=== PATIENT | female | born 1940 | race Caucasian/White ===

== ENCOUNTER 2018-07-27 17:52 | Inpatient (IN) ==
[2018-07-27 19:03] LABS: URINE SOURCE CLEAN CATCH
[2018-07-27 19:07] LABS: BILIRUBIN URINE NEGATIVE (NEGATIVE); BLOOD URINE TRACE (NEGATIVE); COLOR YELLOW; GLUCOSE URINE 300 mg/dL (NEGATIVE); KETONE URINE NEGATIVE (NEGATIVE); LEUKOCYTES URINE NEGATIVE (NEGATIVE); NITRITE URINE NEGATIVE (NEGATIVE); PH URINE 7.5; PROTEIN URINE 300 mg/dL (NEGATIVE); SP GRAVITY URINE 1.007; TURBIDITY URINE HAZY (CLEAR); UROBILINOGEN URINE NORMAL (NORMAL)
[2018-07-27 19:08] LABS: UR EPITHELIAL CELLS >10 /HPF (<10); URINE BACTERIA 2+ /HPF; URINE RBC <10 /HPF (<10); URINE WBC <10 /HPF (<10)
[2018-07-27 19:08] LABS: BASO# 0.02 X1000 (0.0-0.2); BASO% 0.1 % (0.0-0.8); EOS# 0.15 X1000 (0.0-0.7); HEMOGLOBIN 8.5 g/dL (12.0-16.0); IMM GRAN# 0.05 X1000 (0.0-0.04); IMM GRAN% 0.3 % (0.0-0.5); LYMPH# 2.16 X1000 (1.2-3.4); LYMPH% 13.8 % (20.5-51.1); MCH 32.8 PG (27-31); MCHC 32.7 g/dL (33-37); MCV 100.4 FL (81-99); MONO# 1.03 X1000 (0.11-0.59); MONO% 6.6 % (1.7-9.3); MPV 11.2 FL (7.4-10.4); NEUT# 12.25 X1000 (1.4-6.5); NEUT% 78.2 % (42.2-75.2); PLT 247 X1000 (130-400); RBC 2.59 XMIL (4.2-5.4); RDW 12.8 % (11.5-14.5); WBC 15.66 X1000 (4.8-10.8)
[2018-07-27] MEDS ORDERED: G.I. COCKTAIL PO ONE (19:11)
[2018-07-27] MEDS ORDERED: PROTONIX PO ONE (19:11)
[2018-07-27 19:13] LABS: ALB/GLOB RATIO 1.2; ALBUMIN 3.8 g/dL (3.5-5.0); CALCIUM 9.2 mg/dL (8.8-10.2); POTASSIUM 4.1 mmol/L (3.5-5.1); TOTAL BILIRUBIN 0.27 mg/dL (0.20-1.00)
[2018-07-27 19:21] LABS: CREATININE 5.5 mg/dL (0.5-0.9)
--- NOTE | 2018-07-27 19:29 | Diag Imaging Result Doc PS360 ---
EXAM: CHEST-2 VIEWS 07/27/2018 HISTORY: chest pain TECHNIQUE: PA and lateral chest COMMENT: There are bilateral pleural effusions. There is ill-defined opacity in both lower lobes and some interstitial opacity including Jessica B lines bilaterally. None of these findings were present on 03/22/2018. IMPRESSION: Bilateral pleural effusions and pulmonary edema and/or pneumonia. Electronically signed by Peter Lares 07/27/2018 7:27 PM
--- NOTE | 2018-07-27 19:31 | Diag Imaging Result Doc PS360 ---
EXAM: ABDOMEN FLAT/UPRIGHT 07/27/2018 HISTORY: epigastric pain TECHNIQUE: Flat and upright abdomen COMMENT: There is some gas and stool in the colon including the rectum. There is minimal gaseous dilatation of some small bowel loops in the midabdomen. The stomach is not distended. There is no evidence organomegaly or mass. There has been cholecystectomy. There is a peritoneal dialysis catheter in the pelvis. IMPRESSION: Mild constipation. The possibility of ileus cannot be completely excluded. Otherwise nonspecific abdomen. Electronically signed by Peter Lares 07/27/2018 7:29 PM
[2018-07-27] MEDS ORDERED: ROCEPHIN 1 GM in NS 50 ML IV ONE (19:34)
[2018-07-27] MEDS ORDERED: VANCOMYCIN 1 GM/NS 1 GM/250 ML IVPB IV ONE (20:35)
--- NOTE | 2018-07-27 21:14 | Diag Imaging Result Doc PS360 ---
EXAM: CT ABDOMEN/PELVIS W/O CONTRAST 07/27/2018 HISTORY: abdominal pain, vomiting TECHNIQUE: This exam was performed using automated exposure control, adjustment of mA or kV according to patient size, and/or use of iterative reconstruction technique. COMMENT: There are atelectatic changes in both lung bases with bilateral pleural effusions and alveolar opacity present in both lower lobes consistent with pneumonia. There are no previous studies available for comparison. There is a hiatal hernia. There is a peritoneal dialysis catheter in the pelvis. There is some left renal atrophy and there are are multiple apparent cysts in both kidneys. There is no evidence of hydronephrosis or ureterolithiasis. There is some diverticulosis coli without evidence of active diverticulitis. There is no evidence of appendicitis. There is no evidence of bowel obstruction. The stomach is not distended. There has been cholecystectomy. There is a fair amount of stool in the rectosigmoid colon. IMPRESSION: Bilateral pleural effusions and bibasilar atelectasis and bronchopneumonia. Mild constipation. No evidence of acute intra-abdominal or pelvic disease. Electronically signed by Peter Lares 07/27/2018 9:12 PM
[2018-07-27 21:36] LABS: BODY FLUID SOURCE PERITONEAL FLUID
[2018-07-27 21:37] LABS: WBC BF 286 /cumm
[2018-07-27] MEDS ORDERED: LASIX IV ONE (21:42)
[2018-07-27 22:02] LABS: MONOS 100 %; POLYS 0 %
[2018-07-27 22:31] LABS: INR 0.97; PROTIME 13.7 Seconds (11.0-16.0)
[2018-07-27 22:32] LABS: PTT 31.6 Seconds (22.3-41.8)
[2018-07-27] MEDS ORDERED: MORPHINE IV ONE (23:31)
[2018-07-27] MEDS ORDERED: ZOFRAN IV ONE (23:31)
[2018-07-28] MEDS ORDERED: TYLENOL PO PRN (01:34)
[2018-07-28] MEDS ORDERED: VANCOMYCIN IV PER PHARMACY MISC SCH (01:45)
[2018-07-28] MEDS: MORPHINE IV PRN ×3 (02:06→15:34)
--- NOTE | 2018-07-28 02:06 | PROVIDER DOCUMENTATION ---
This chart was entered by Luci Richards Scribe, acting as scribe for Dwight Villagomez MD. HPI-Abdominal Pain/GI Problem - General Chief Complaint: Abdominal Pain Stated Complaint: HIATAL HERNIA? Time Seen by Provider: 07/27/18 18:13 Source: patient Allergies/Adverse Reactions: Patient Allergies Allergy/AdvReac Type Severity Reaction Status Date / Time No Known Allergies Allergy Verified 12/17/17 08:22 Home Medications: Home Medication List Medication Instructions Recorded Confirmed Last Taken Type Amlodipine Besylate/Benazepril 1 each PO DAILY 12/17/17 07/27/18 07/27/18 History [Lotrel 10-40 mg Capsule] Dorzolamide HCl/Timolol Maleat 1 drop OP BID 12/17/17 07/27/18 07/27/18 History [Cosopt Eye Drops] Furosemide [Lasix] 40 mg PO DAILY 12/17/17 07/27/18 07/27/18 History Insulin Lispro [Humalog] 0 unit SQ DIRECTED 12/17/17 07/27/18 07/27/18 History Pantoprazole Sodium [Protonix] 40 mg PO DAILY 12/17/17 07/27/18 07/27/18 History Subcutaneous Insulin Pump [Insulin 1 each MC DAILY 12/17/17 07/27/18 07/27/18 History Pump] Ergocalciferol (Vitamin D2) 1.2 mg PO DAILY 07/27/18 07/27/18 07/27/18 History [Vitamin D2] Tafluprost/Pf [Zioptan 0.0015% Eye 1 drop BOTH EYES DAILY 07/27/18 07/27/18 Unknown History Drops] - History of Present Illness-ABD Nature of Presenting Problems: 77 yof presents to ED c/o of UQ abdominal pain and chest pain that is burning for 3 months and has increased today, SOB upon lying down, nausea, vomiting, diarrhea. Pt states having only eating jello for last 3 days because eating causes pain. Pt states vinegar, antacid, soda has helped this in past but not helping now. Pt is on pd dialysis and normally does 4hrs 1 x day but had to stop and start dialysis today because pain was so bad. Pt has hx hiatal hernia , DM, HTN. Pt states being scheduled for EGD with Dr. Osborne on 08/04/18. Quality of Pain: reports: burning Review of Systems - Adult - REVIEW OF SYSTEMS - ADULT Constitutional: denies: chills, fever Eyes: reports: no symptoms reported Ears, Nose, Mouth & Throat: reports: no symptoms reported Cardiovascular: reports: chest pain (burning) Respiratory: reports: no symptoms reported Gastrointestinal: reports: see HPI, abdominal pain (possible hiatal hernia), diarrhea, frequent heartburn, nausea, vomiting Genitourinary: reports: no symptoms reported Musculoskeletal: reports: no symptoms reported Integumentary: reports: no symptoms reported Neurological: reports: no symptoms reported Psychiatric: reports: no symptoms reported Past History - Adult - PAST MEDICAL HISTORY-ADULT Review of Records: reports: Old Records Reviewed, Nursing Assessment Review, Medications Reviewed Major Childhood Illnesses: reports: denies history Cardiovascular: reports: denies history Respiratory: reports: denies history Gastrointestinal: reports: denies history Obstetrical/Gynecological: reports: denies history Genitourinary: reports: denies history Musculoskeletal: reports: denies history Neurological: reports: denies history Endocrine/Immune: reports: denies history Other Conditions: reports: denies history - IMMUNIZATION STATUS Childhood Immunizations: See Nurse Assessment Flu Vaccine: See Nurse Assessment - FAMILY HISTORY Family History: reviewed, not pertinent Physical Exam-General - PHYSICAL EXAM-ADULT Initial Vital Signs Reviewed: Yes - CONSTITUTIONAL General Appearance: appears well, alert - EYES Eyes: PERRL/EOMI - HEAD, EARS, NOSE, MOUTH & THROAT HENMT: normocephalic/atraumatic, moist mucous membranes, normal ENT inspection - NECK Neck: non-tender, full range of motion, supple. negative: Brudzinski's sign, carotid bruit - RESPIRATORY Respiratory: chest non-tender, lungs clear, normal breath sounds. negative: crackles, rales, rhonchi - CARDIOVASCULAR Cardiovascular: normal peripheral pulses, regular rate, rhythm, no edema - GASTROINTESTINAL (ABDOMEN) Abdominal Exam: normal bowel sounds, non tender, soft. negative: guarding, rigid, rebound, tenderness - LYMPHATIC Lymphatic: no adenopathy. negative: axilla node tender, cervical node tenderness - MUSCULOSKELETAL Back Exam: normal inspection, no CVA tenderness, no vertebral tenderness. negative: ecchymosis Extremity: normal range of motion, non-tender, normal gait, normal inspection - SKIN Integumentary: normal color, normal turgor, warm/dry. negative: diaphoresis, jaundice - NEUROLOGIC Neurologic: grossly normal Progress - PLAN OF CARE/RESULTS Progress/Plan/Lab Results: Vital Signs - 8 hr 07/27/18 18:06 Temperature 98.4 F Pulse Rate 106 H Respiratory Rate 18 Blood Pressure 156/69 O2 Sat by Pulse Oximetry 97 Orders Category Date Time Status NPO Diet 07/27/18 18:09 Active AMYLASE [CHEM] Stat Lab 07/27/18 18:09 Uncollected CBC WITH ELECTRONIC DIFF [HEME] Stat Lab 07/27/18 18:09 Uncollected COMPREHENSIVE METABOLIC PANEL [CHEM] Stat Lab 07/27/18 18:09 Uncollected LIPASE [CHEM] Stat Lab 07/27/18 18:09 Uncollected URINALYSIS W/POSS RFLX CULT [URINALYSIS] Stat Lab 07/27/18 18:09 Uncollected EKG [EKG] Stat Ther 07/27/18 18:09 Ordered Result Diagrams: 07/27/18 18:14 07/27/18 18:14 - EKG 2 Time of EKG reading by physician:: 18:11 EKG Read and Signed by:: Dwight Overton EKG Interpretation (*Must complete 3 of following elements*): Abnormal Rate: 107 Rhythm: sinus tachy ST Wave: non-specific ST changes - XRAY 1 XRAY: Bilateral XRAY Study: Chest Impression: Abnormal (IMPRESSION: Bilateral pleural effusions and pulmonary edema and/or pneumonia. Electronically signed by Peter Lares 07/27/2018 7: 27 PM) 2 XRAY: Bilateral XRAY Study: Abdomen Impression: Abnormal (IMPRESSION: Mild constipation. The possibility of ileus cannot be completely excluded. Otherwise nonspecific abdomen. Electronically signed by Peter Lares 07/27/2018 7:29 PM) - CONSULTS/PCP/HOSPITALIST Notification #1 *Consult/PCP/Hospitalist*: Dr. Willie perez Consult Disposition: Admit (HX, PE, DX disucssed with Dr. Perez. accepted.) #2 Consult: Dr. Dayana Campuzano Disposition: Admit (Peritoneal sample, Add vancomycin and admit.) Departure - Departure Date of Disposition Decision: 07/27/18 Time of Disposition Decision: 22:01 DIAGNOSIS: Pleural effusion, Chest pain, Abdominal pain Pneumonia Qualifiers: Pneumonia type: due to unspecified organism Laterality: unspecified laterality Lung location: unspecified part of lung Qualified Code(s): J18.9 - Pneumonia, unspecified organism Disposition: ADMITTED INPATIENT 09 Certified Medical Emergency: Emergent Condition: Stable - Critical Care Note This patient required my direct & personal management of CC.: No Attestation - Physician/ BHAVANA Attestation Patient care was provided by Advanced Practice Provider:: No The physician spent face to face time with patient:: Yes Advanced Practice Provider documentation review:: Supervising physician onsite and consulted in the evaluation and care of this patient. The physician did have a face to face encounter with the patient. This chart was documented by the indicated scribe, (Luci Richards Scribe) and accurately reflects the services I performed and decisions made by me, Dwight Villagomez MD, as attested by the provider's signature.
--- NOTE | 2018-07-28 06:00 | HISTORY AND PHYSICAL ---
PRIMARY CARE PROVIDER: Dr. Dario Baez. CORRECTIONAL NURSE: Dr. Chiu. LUCERNE FARMER: Dr. Anne. CHIEF COMPLAINT: Abdominal pain. HISTORY OF PRESENT ILLNESS: Ms. Hinojosa is a 77-year-old female who states that for a few months now that she has had abdominal pain that has progressively been getting worse. Upon further questioning it does appear the patient is having epigastric pain that is in the center and left upper abdomen just under her left as well. She states that the pain did use to be intermittent and would worsen when she would eat though over the past few weeks it has become constant. In the last few days the patient reports that the pain has become almost intolerable, a 10 out of 10, it is constant. She states that secondary to the pain that she is not able to eat or to drink much. She also states she has been having trouble sleeping. She has had occasional episodes of vomiting with this though states she has not had any in the last few days though she has not eaten hardly any food or drank anything. She denies any emesis. She reports her last bowel movement was two days ago. She states that she does constipate easy and normally takes a stool softener. She denies any hematochezia or melena. Patient states the pain does radiate into her back at times. She has reported that last month she did get treated for an upper respiratory infection and has kept an occasional productive cough. She states this was white sputum though she denies any fever, body aches or chills. The patient does have a history of having end stage renal disease and is on daily peritoneal dialysis. She also reports that she has been seeing Dr. Chiu for her epigastric pain and does have a reported hiatal hernia. She does have an appointment for an EGD with Dr. Chiu on August 04. Upon evaluation in the ER, the patient's initial vital signs were temperature 98.4, heart rate 109, respirations 18, blood pressure is 139/54, oxygen saturation is 93% on room air. She did have some leukocytosis noted with a white blood count of 15,660. Chest x-ray did show bilateral pleural effusions and pulmonary edema and/or pneumonia. Abdomen x-ray did show some mild constipation and the possibility of an ileus could not be excluded. Given those findings a CT abdomen and pelvis without contrast was performed which did show bilateral pleural effusions and bibasilar atelectasis and bronchopneumonia. There was mild constipated noted though no evidence of acute intraabdominal or pelvic disease. Dr. Overton, the ER physician, did contact Dr. Anne and notify him of the patient. He did have the dialysis nurse come in, obtain some peritoneal fluid. She did have 286 WBCs noted to her peritoneal fluid. According to Dr. Marcella Pastrana, he has requested antibiotics of Rocephin and vancomycin. Blood cultures and a sputum culture have been obtained as well. Patient will be placed in patient admission for further treatment and evaluation. REVIEW OF SYSTEMS: A 14 point review of systems was conducted with the patient and all were negative except for pertinent positives mentioned above in HPI. PAST MEDICAL HISTORY: 1. Hypertension. 2. Hyperlipidemia. 3. End stage renal disease, on peritoneal dialysis. 4. Gastroesophageal reflux disease. 5. Hiatal hernia. 6. Diabetes mellitus, type 2. 7. Anemia. 8. Glaucoma. PAST SURGICAL HISTORY: 1. Cholecystectomy. 2. Peritoneal dialysis port placement. SOCIAL HISTORY: The patient has no known history of tobacco, alcohol or illicit drug use. She is . Her was present at bedside. The patient is retired. 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 She did not require any ambulatory assistive devices. FAMILY HISTORY: Her mother had a history of passing away secondary to metastatic cervical cancer. Her father had a history of kidney disease as well. She has a brother who has a history of heart problems. ALLERGIES: The patient reports that she has allergies to flu shot and some injectable insulins though she has not had any adverse reactions to Humalog and this is what she takes at this time. She also reports that she does have to take premedications of Benadryl when receiving iron infusions. HOME MEDICATIONS: 1. Lotrel 10 - 40 mg capsule, one p.o. daily. 2. Cosopt eyedrops, one drop in both eyes b.i.d. 3. Vitamin D2 1.2 mg p.o. daily. 4. Lasix 40 mg p.o. daily. 5. Lispro insulin per sliding scale as directed subcutaneously. 6. Protonix 40 mg p.o. daily. 7. Zioptan 0.0015% eyedrops, one drop in both eyes nightly. 8. Allergen eyedrops, one drop in the right eye b.i.d. DIAGNOSTIC DATA/LABORATORY RESULTS: White blood cell count is 15.66, hemoglobin 8.5, hematocrit 26, platelet count 247,000, PT 13.7, INR 0.97, PTT is 31.6, sodium 138, potassium 4.1, chloride 101, serum bicarb is 19, BUN 41, creatinine 5.5 with a GFR of 8, glucose 188, calcium 9.2. Liver function test within normal limits. CK 51, troponin 0.01, amylase 19, lipase 45, plasma lactate is 1.2. Urinalysis was obtained via catheter and was positive for protein glucose, trace blood. It was negative for ketones, nitrites, leukocytes, white blood cells but did have 2+ bacteria and also has greater than 10 epithelial cells. Peritoneal fluid did have 286 WBCs noted. There were 0 polynuclear WBCs. There were 100 mononuclear WBCs present. Pending cultures at this time are a blood culture, a sputum culture and peritoneal fluid culture as well. Abdomen x-ray did show mild constipation and the possibility of an ileus cannot be completely excluded. Chest x-ray showed bilateral pleural effusions and pulmonary edema and/or pneumonia. CT abdomen and pelvis without contrast showed bilateral pleural effusions, bibasilar atelectasis and bronchopneumonia. There is mild constipation. There was no evidence of acute intraabdominal or pelvic disease. PHYSICAL EXAMINATION: VITAL SIGNS: Temperature 98.4, heart rate 109, respirations 18, blood pressure 139/54. Oxygen saturation is 96% on nasal cannula at 2 L. GENERAL: Ms. Hinojosa is a 77-year-old pleasant female. She was resting in the ER stretcher. She was in no acute distress. She was awake, alert, and able to answers questions appropriately. On my initial assessment the patient did appear to be having some epigastric pain and was quite uncomfortable, reporting 10 out of 10 pain. HEENT: Head is normocephalic and atraumatic. Pupils are equal, round and reactive to light, were 3 mm bilaterally and brisk. Sub conjunctivae were slightly pale. Oral mucosa slightly dry. Oropharynx is clear. NECK: Supple. Trachea midline. CARDIOVASCULAR: Patient has S1, S2 present. No murmurs, gallops or rubs appreciated with a regular rate and rhythm. PULMONARY: Patient has symmetrical chest expansion bilaterally. Lung sounds in bilateral upper gardner were clear to auscultation though she did have fine crackles noted in bilateral bases. ABDOMEN: Soft. Does not appear to be distended though she did report tenderness upon palpation in the epigastric and left upper quadrant areas just under her left breast though no rebound tenderness noted. Bowel sounds were present in all four quadrants, were normoactive. The patient's peritoneal dialysis port site was within normal limits. There was no erythema, warmth, drainage or tenderness noted. EXTREMITIES: No cyanosis or clubbing noted. The patient did have trace edema noted to bilateral lower extremities approximately mid calf down. Pulse, motor and sensory were intact in all extremities. Radial pulse and pedal pulses were 2+ bilaterally. INTEGUMENTARY: Patient's skin is pink, warm and dry. NEUROLOGIC: The patient is alert and oriented to x4. There are no focal neurological deficits noted. ASSESSMENT AND PLAN: 1. Epigastric pain. Patient does have a history of a hiatal hernia that has been being followed by Dr. Chiu. She did have an EGD scheduled for August 04. Patient states this pain has been progressively getting worse over the past few months as described above in the HPI. At this time I do feel that the patient's pain that she is reporting may be secondary to her hiatal hernia. Given this we have placed a consult with Dr. Chiu and will await his evaluation and further recommendations for management. Until she is evaluated by GI we have asked that the patient remain NPO at this time except for ice chips. We have placed p.r.n. orders for morphine and Zofran for nausea. Will provide PPI of Protonix 40 mg IV q.24.h. Will continue to follow closely. 2. Rule out possible peritonitis. The patient has been reporting abdominal pain. She does have some leukocytosis noted and did have 286 WBCs noted in her peritoneal fluid. The patient has had a culture performed for peritoneal fluid as well as blood cultures have been obtained. We will continue with antibiotic coverage with Rocephin and vancomycin. Will continue to follow. 3. Bilateral pneumonia. The patient did have atelectatic changes in both lung bases and bilateral pleural effusions and alveolar opacity present in both lower lobes consistent with pneumonia. We will continue with treat with antibiotic treatment as mentioned above with vancomycin and Rocephin. Blood cultures and sputum culture have been obtained. Will continue with encouragement of frequent turn, cough and deep breathing as well as incentive spirometry. Will continue to follow. 4. End stage renal disease, on peritoneal dialysis. For this we have placed a consult with Dr. Anne for assistance with her peritoneal dialysis. We will await his evaluation and further recommendations for management. 5. Diabetes mellitus, type 2. We placed a sliding scale Lispro insulin though this will be a patient specific sliding scale not to be treated once her fingerstick blood sugar gets greater than 200 given that the patient has had decreased appetite, oral intake and is NPO with ice chips at this time. Will do pattern fingerstick blood sugars. 6. Hypertension. Continue the patient's readily prescribed antihypertensive medication. 7. Anemia. The patient's hemoglobin and hematocrit is just slightly decreased from her baseline at this time. We will continue to monitor this and transfuse if necessary. 8. Deep venous thrombosis prophylaxis. To be provided with sequential compression devices. The patient has been placed on the Medical floor with telemetry. She will have vital signs q.4.h. Will do strict intake and output. We have implemented aspiration precautions. Will repeat a CBC, renal profile and magnesium in the morning. Further orders and recommendations pending hospital course, diagnostic studies and physician evaluation. Dictated by KEO Gillis for Willie Perez MD cc: Willie Perez MD
[2018-07-28] MEDS: HUMALOG SUBQ SCH ×4 (06:13→21:41)
[2018-07-28 07:39] LABS: BASO# 0.01 X1000 (0.0-0.2); BASO% 0.1 % (0.0-0.8); HEMATOCRIT 24.8 % (37.0-47.0); HEMOGLOBIN 7.8 g/dL (12.0-16.0); IMM GRAN# 0.03 X1000 (0.0-0.04); IMM GRAN% 0.2 % (0.0-0.5); LYMPH# 0.93 X1000 (1.2-3.4); LYMPH% 5.2 % (20.5-51.1); MCH 32.9 PG (27-31); MCHC 31.5 g/dL (33-37); MCV 104.6 FL (81-99); MONO# 1.19 X1000 (0.11-0.59); MONO% 6.6 % (1.7-9.3); MPV 11.3 FL (7.4-10.4); NEUT# 15.82 X1000 (1.4-6.5); NEUT% 87.9 % (42.2-75.2); PLT 247 X1000 (130-400); RBC 2.37 XMIL (4.2-5.4); RDW 13.3 % (11.5-14.5); WBC 17.98 X1000 (4.8-10.8)
--- NOTE | 2018-07-28 07:59 | EKG Report ---
Test Performed on : 07/28/2018 07:05:02 AM Test Reason : CP/Epigastric Pain Blood Pressure : / mmHG Vent. Rate : 112 BPM Atrial Rate : 112 BPM P-R Int : 116 ms QRS Dur : 108 ms QT Int : 358 ms P-R-T Axes : 034 -29 161 degrees QTc Int : 488 ms Sinus tachycardia. Septal infarct (cited on or before 17-DEC-2017) ST & T wave abnormality, consider lateral ischemia Abnormal ECG When compared with ECG of 27-JUL-2018 18:11, (Unconfirmed) Nonspecific T wave abnormality now evident in Inferior leads Confirmed by Ham Davidson MD ([id number]) on 07/29/2018 7:08:27 AM
--- NOTE | 2018-07-28 08:21 | EKG Report ---
Test Performed on : 07/27/2018 6:11:20 PM Test Reason : chest pressure Blood Pressure : / mmHG Vent. Rate : 107 BPM Atrial Rate : 107 BPM P-R Int : 126 ms QRS Dur : 112 ms QT Int : 362 ms P-R-T Axes : 047 -34 110 degrees QTc Int : 483 ms Sinus tachycardia. Left axis deviation Septal infarct (cited on or before 17-DEC-2017) ST & T wave abnormality, consider lateral ischemia Abnormal ECG When compared with ECG of 17-DEC-2017 08:41, ST now depressed in Lateral leads Nonspecific T wave abnormality no longer evident in Anterior leads T wave inversion more evident in Lateral leads Unconfirmed Result
[2018-07-28 08:22] LABS: ALBUMIN 3.5 g/dL (3.5-5.0); CALCIUM 9.7 mg/dL (8.8-10.2); MAGNESIUM 2.1 mg/dL (1.5-2.7); PHOSPHORUS 6.8 mg/dL (2.7-4.5); POTASSIUM 4.7 mmol/L (3.5-5.1)
[2018-07-28 08:52] LABS: CREATININE 6.2 mg/dL (0.5-0.9)
[2018-07-28 09:30] LABS: HEMOGLOBIN A1C 5.3 % (4.8-6.0)
[2018-07-28 09:58] LABS: BANDS 12 % (0-1); LYMPHS 2 % (21-51); SEGS 86 % (42-75)
[2018-07-28] MEDS: COSOPT OPHTH SOLN BOTH EYES SCH ×2 (10:26→21:41)
--- NOTE | 2018-07-28 10:37 | PROGRESS NOTE ---
DATE: 07/28/2018 SUBJECTIVE: Patient reports still some discomfort in the epigastric area. Denies any fever, chills, nausea, vomiting. OBJECTIVE: Vital Signs: Temperature 98.4 degrees, heart rate 110, respiratory rate 18, blood pressure 118/54, O2 saturation 93% on 3 L nasal cannula General examination: This is a chronically ill-looking, 77-year-old female, lying in bed in no acute distress. HEENT: Head is normocephalic, atraumatic. Mucous membranes dry. Neck: Supple. No JVD noted. No carotid bruits. No lymphadenopathy. No thyromegaly. Cardiovascular exam: S1 , S2 heard. No murmurs, gallops, or rubs. Regular rate and rhythm. Respiratory exam: Clear bilaterally to auscultation. No work of breathing or using accessory muscles. Abdomen: Soft. A little bit distended. Tender to palpation in the epigastric area, but there are no signs of peritoneal irritation. The patient's peritoneal dialysis port site was within normal limits. No erythema noted. Extremities: No clubbing or cyanosis noted. The patient may have trace edema noted on both lower extremities. Neurological exam: Patient alert and oriented x3. Moves 4 extremities. LABORATORY DATA: White cell count 17.98, hemoglobin 7.8, hematocrit 24.8, platelets 247 with BMP remarkable for creatinine 6.2 with glucose of 41. ASSESSMENT/PLAN: 1. Bronchopneumonia; that is what the CAT scan shows. The patient is on vancomycin per pharmacy and also receiving ceftriaxone. We will continue with both medications. 2. Epigastric pain. The patient is going to be seen by Dr. Osborne today for further evaluation and management. The patient is on nothing by mouth at this point. We will continue with Protonix 40 mg intravenous every 24 hours. 3. Suspicion for possible peritonitis. I think at this point patient is fine. I am not concerned about that. 4. End-stage renal disease on peritoneal dialysis. Dr. Anne has been consulted. We will continue with peritoneal dialysis here. 5. Diabetes mellitus type 2. We will continue with sliding scale insulin and Accu-Cheks before meals and also at bedtime. 6. Hypertension. We will continue with the same management. 7. Anemia of chronic disease. Hemoglobin is 2.8 today. We will continue to monitor. 8. Disposition: We will continue to monitor this patient closely. We appreciate help from Nephrology. Addendum: I was paged by nurse because this patient started complaining of severe substernal chest pain. Her troponins started to get higher. EKG revealed possible inferior MA. I immediately went to see her. I ordered one dosis of sublingual nitro and morphine IV. Pain now is 4 out of 10 intensity. I ordered an echocardiogram and consulted cardiology. I talked with Dr. Jacinto which think she may need cath eventually but he prefers to transfer her to [place]. I am ok with the plan. Will stabilize her first. Upon my examination again she has crackles all over both pulmonary bases and she is anemic. All those factors are contributing to her chest pain. Will talk with Nephro to see if she can have hemodialysis if required. My understanding is she does not make urine so Lasix will not be useful. Will send her to ICU and monitor her closely. Critical care time : 50 minutes cc: Eric Nunes MD MTDD
[2018-07-28] MEDS ORDERED: MORPHINE IV ONE (12:02)
[2018-07-28] MEDS: ZOFRAN IV PRN (12:09)
[2018-07-28] MEDS: NITROGLYCERIN SL PRN ×3 (12:13→12:24)
[2018-07-28] MEDS ORDERED: MORPHINE ONE (12:18)
[2018-07-28] MEDS: LOTREL 5/20 MG PO SCH (12:35)
--- NOTE | 2018-07-28 12:41 | EKG Report ---
Test Performed on : 07/28/2018 12:33:59 PM Test Reason : chest pain Blood Pressure : / mmHG Vent. Rate : 100 BPM Atrial Rate : 100 BPM P-R Int : 118 ms QRS Dur : 110 ms QT Int : 380 ms P-R-T Axes : 030 -24 012 degrees QTc Int : 490 ms Normal sinus rhythm. Incomplete left bundle branch block T wave abnormality, consider lateral ischemia Abnormal ECG When compared with ECG of 28-JUL-2018 07:05, (Unconfirmed) T wave inversion less evident in Lateral leads Confirmed by Stuart SALAS, Ham Finch ([id number]) on 07/29/2018 7:10:39 AM
[2018-07-28 12:45] LABS: ALLEN TEST NO; BLOOD TYPE ARTERIAL; HCO3-(ACT) 20.2 mmoll (20.0-26.0); O2(CT) 14.4 mL/dL (15.0-23.0); O2HB 95.2 % (95.0-99.0); PCO2(98.6) 38 mmHg (35-45); PO2(98.6) 86 mmHg (60-100); SAMPLE BLOOD; SAO2 97.4 % (95.0-100.0); THB 10.7 g/dL (11.5-17.4); pH(98.6) 7.32 (7.35-7.45)
[2018-07-28 12:46] LABS: MODALITY NRB
--- NOTE | 2018-07-28 14:17 | EKG Report ---
Test Performed on : 07/28/2018 2:00:23 PM Test Reason : elevated troponins Blood Pressure : / mmHG Vent. Rate : 097 BPM Atrial Rate : 097 BPM P-R Int : 120 ms QRS Dur : 110 ms QT Int : 364 ms P-R-T Axes : 033 -28 -78 degrees QTc Int : 462 ms Normal sinus rhythm. Incomplete left bundle branch block ST & T wave abnormality, consider lateral ischemia Abnormal ECG When compared with ECG of 28-JUL-2018 12:33, (Unconfirmed) No significant change was found Confirmed by Ham Davidson MD ([id number]) on 07/29/2018 7:10:56 AM
[2018-07-28] MEDS: CARAFATE LIQUID PO SCH ×2 (14:22→20:26)
--- NOTE | 2018-07-28 14:36 | CONSULTATION ---
DATE OF CONSULTATION: 07/28/2018 REASON FOR CONSULTATION: Chest pain, epigastric abdominal pain. HISTORY OF PRESENT ILLNESS: This is a 77-year-old female who reports ongoing symptoms for several months but over the last 2 to 3 weeks her symptoms have become severe. She has reported chest pain, esophageal pain described as a tightness, sometimes pain that radiates to the back. She denies dysphagia. Patient reports pain is worse after eating and also worse when taking a deep breath. She complains of pain worse on the left side than the right side, but also points to the mid sternal area. She reports an episode of nausea and vomiting yesterday. She does report occasional constipation and takes stool softeners as needed. She usually has a bowel movement daily. She has not been seen in our office recently. We had last seen her for an outpatient colonoscopy in 2016 that showed diverticulosis. On evaluation the patient had a chest x-ray that showed bilateral pleural effusion, pulmonary edema versus pneumonia. On reviewing her records including lab work and EKG. Patient has had elevation in her troponin since yesterday. EKG showed normal sinus rhythm with incomplete left bundle branch block with T-wave abnormality considering lateral ischemia. Patient has denied abdominal pain. She has denied dysphagia. No reported blood in the stool or black stools. No reported hematemesis. She states the pain is severe at times. She has been taking Protonix at home. She was actually scheduled for an outpatient EGD by Dr. Osborne next week, on July. We have not seen her in the office recently, except for colonoscopy in 2016. PAST MEDICAL HISTORY: Hypertension, hyperlipidemia, end-stage renal disease on peritoneal dialysis, following with Dr. Anne, GERD, hiatal hernia, diabetes type 2, anemia, glaucoma. PAST SURGICAL HISTORY: Peritoneal dialysis placement in December of 2017 and initiation of peritoneal dialysis in January of 2018. ALLERGIES: No known drug allergies. MEDICATIONS: Lotrel 10/40 mg daily, Alphagan eye drops twice a day, Cosopt eye drops twice a day, vitamin D2 1.2 mg daily, Lasix 40 mg daily, insulin Levemir 15 units subcutaneously daily, insulin Humalog subcutaneously as directed, Protonix 40 mg daily, insulin pump daily, other eye drops daily, and eye drops at night. SOCIAL HISTORY: She is . No reported alcohol or tobacco use. She is retired. FAMILY HISTORY: Mother with metastatic cervical cancer. Father had kidney disease and a brother with history of heart disease. REVIEW OF SYSTEMS: Per history of present illness. PHYSICAL EXAMINATION: Vital Signs: Temperature 98.6 degrees, pulse 99, respirations 16, blood pressure 110/62. General: Patient is awake, alert, in no acute distress. She still reports some pain but states it has improved after pain medication. HEENT: Normocephalic, atraumatic. Pupils equal, round, reactive to light. Sclerae nonicteric. Cardiovascular: Regular rate and rhythm. Respiratory: Lung sounds essentially clear. Abdomen: Soft. Positive bowel sounds. Some mild tenderness in the epigastric area. Has peritoneal dialysis port to the abdomen. Extremities: No lower extremity edema noted. Cranial nerves 2-12 grossly intact. Patient is awake, alert, oriented to person, place, and time. LABORATORY: Hematology: WBC 17.98, hemoglobin 7.8, hematocrit 24.8, MCV 104.6, platelets 247,000. Coagulation: ProTime 13.7, INR 0.97, PTT 31.6. Chemistry: Sodium 136, potassium 4.7, chloride 100, CO2 18, BUN 46, creatinine 6.2, glucose 241, phosphorus 6.8, total bilirubin 0.27, AST 12, ALT 13, alkaline phosphatase 69. On admission her troponin was 0.071. Today it is 0.490. CPK on admission 51, today 57. Amylase 19, lipase 45. IMAGING STUDIES: Abdominal and pelvis CT scan showed bilateral pleural effusions and bibasilar atelectasis and bronchial pneumonia with mild constipation. No evidence of acute intra-abdominal or pelvic disease. Abdominal x-ray shows mild constipation with the possibility of ileus could not be excluded. Otherwise nonspecific abdomen. Chest x-ray showed bilateral pleural effusions and pulmonary edema and/or pneumonia. ASSESSMENT AND PLAN: 1. Bronchial pneumonia. Continue current management. Continue antibiotics. 2. Chest pain versus epigastric pain. Patient is on PPI. Will add Carafate. 3. End-stage renal disease, on peritoneal dialysis. Following with Dr. Anne. 4. Elevated troponin, abnormal electrocardiogram. I believe cardiology has been consulted. This could be the cause of her pain she is experiencing. We had tentatively scheduled her for an EGD today but due to her other issues including respiratory and possible cardiac issues, the EGD has been canceled. Further plans will be made according to her progress and findings. I have discussed this case with Dr. Osborne. Dictated by KEO Navarrete for Dameon Osborne MD cc: KEO Kaufman MD
[2018-07-28] MEDS ORDERED: ASPIRIN PO ONE (15:49)
--- NOTE | 2018-07-28 16:24 | CONSULTATION ---
DATE OF CONSULTATION: 07/28/2018 IMPRESSION: 1. Acute coronary syndrome/unstable angina likely provoked by stress of noncardiac illness, including significant anemia, possible infectious process, and likely pulmonary edema. In essence, current clinical presentation has seemed to unmask the likely diagnosis of severe coronary disease in this patient at high risk for coronary atherosclerosis. The patient's chest symptoms have abated at this point. 2. Anemia which appears to be significant. Hematocrit currently 24.8 and previously 35 six months ago. No overt symptoms of gastrointestinal blood loss. 3. Hypoxemia probably due to pulmonary edema suggested on chest x-ray. Leukocytosis evident and cannot exclude possible associated pneumonia. 4. End-stage renal disease requiring chronic peritoneal dialysis. 5. Diabetes mellitus type 2. 6. Hypertension. RECOMMENDATIONS: 1. Continue supplemental oxygen and try to remove intravascular volume as best as possible. Nephrology assistance will be needed. 2. Consider transfusion of packed red blood cells. 3. Treat for possible pneumonia as you are doing. 4. Non contrasted chest CT scan may prove helpful in trying to better define pulmonary process. 5. Follow up echocardiography. 6. Once patient stabilizes overall, further evaluation with cardiac catheterization/coronary angiography should be considered. It may be better to consider pursuing this in [facility]. HISTORY: This 77-year-old white female with past history of end-stage renal disease requiring chronic peritoneal dialysis, type 2 diabetes mellitus and hypertension was recently admitted with episodic chest pressure over the last several weeks that has been getting progressively worse. She has noted that the discomfort seems to be postprandial. She is not very active physically. She is rather vague as to the duration of her chest symptoms, but adds that it would almost be constant at times. As symptoms were getting progressively worse, she came to the hospital for evaluation and was admitted. She has had hypoxemia and bilateral pulmonary infiltrates. She also has leukocytosis and significant anemia. Today, she had further chest discomfort characterized as pressure, although she would state the discomfort seems to be sharp at times. She was treated with increase in supplemental oxygen and some nitroglycerin, as well as parental morphine. Her symptoms have abated. Initial troponin when she came to the hospital was 0.071 and subsequent troponin has risen to 0.490. For this reason, Cardiology was consulted. PAST MEDICAL HISTORY: 1. End-stage renal disease requiring chronic peritoneal dialysis. 2. Type 2 diabetes mellitus. 3. Hypertension. 4. Hyperlipidemia. 5. Gastroesophageal reflux disease. 6. Anemia, mild in the past. 7. Glaucoma. PAST SURGICAL HISTORY: 1. Cholecystectomy. 2. Placement of peritoneal dialysis catheter. ALLERGIES: She has no known drug allergies. MEDICATIONS PRIOR TO ADMISSION: As listed. SOCIAL HISTORY: She does not smoke nor use alcohol. She is . FAMILY HISTORY: Negative for premature coronary disease. REVIEW OF SYSTEMS: Pulmonary: Noteworthy for dyspnea, as well as nonproductive cough. Gastrointestinal: Noteworthy for postprandial chest pressure and gastroesophageal reflux. Constitutional: Negative for fever. Remainder of review of systems negative/noncontributory with 14 total systems reviewed. PHYSICAL EXAMINATION: General: This is a pleasant, older white female in no distress. Vital signs: Blood pressure 110/62, heart rate 99, oxygen saturation 92%. HEENT Exam: Extraocular movements appear intact. Mucous membranes are moist. Neck: Supple without jugular venous distention. There are no carotid bruits. Chest: Auscultation of the chest reveals bibasilar inspiratory crackles. Cardiac Exam: Reveals a regular rate and rhythm without appreciable murmur or gallop. Abdomen: Soft. Bowel sounds normal. Extremities: Without edema. Neurologic: Reveals her to be alert and fully oriented. Speech is fluent. She moves all 4 extremities equally well. Skin: Warm and dry. Psychiatric: Reveals her mood to be appropriate. PERTINENT DATA: Twelve lead EKG demonstrates sinus rhythm, incomplete left bundle branch block, and ST and T-wave abnormality, consider lateral ischemia. LABORATORY DATA: Lab data includes white blood cell count of 17.98, hematocrit 24.8, hemoglobin 7.8, MCV 104.6, platelet count 247. Sodium 136. Potassium 4.7. Chloride 100. Carbon dioxide 18. BUN 46, creatinine 6.2, glucose 241. Initial troponin 0.071. Troponin today 0.490. Initial CPK 51; followup CPK today 57. cc: Floyd Jacinto MD
--- NOTE | 2018-07-28 18:35 | Diag Imaging Result Doc PS360 ---
CT THORAX W/O CONTRAST - 07/28/2018 INDICATION: hypoxemia, nonproductive cough COMPARISON: Chest x-ray 07/27/2018 FINDINGS: There are small bilateral pleural effusions. There is significant consolidation of both lower lobes. There is hazy interstitial infiltrate centrally throughout the lungs bilaterally. Heart size is ordered aligned. No pericardial effusion. Anemia is present. No adenopathy. There are cholecystectomy clips. Upper abdominal images are grossly normal. There are moderate degenerative changes of the spine. No acute or suspicious bony lesion. IMPRESSION: 1. Cardiomegaly, pulmonary edema, small pleural effusions. 2. Significant consolidation of both lower lobes is indeterminate, representing either pneumonia or atelectasis. This exam was performed using automated exposure control, adjustment of mA or kV according to patient size, and/or use of iterative reconstruction technique Electronically signed by Eddie Mcfarland 07/28/2018 6:32 PM
[2018-07-28] MEDS ORDERED: PROTONIX IV SCH (19:00)
[2018-07-28] MEDS ORDERED: ROCEPHIN 1 GM in NS 50 ML IV SCH (20:00)
[2018-07-28] MEDS ORDERED: LASIX IV ONE (20:06)
--- NOTE | 2018-07-28 21:35 | NEPHROLOGY CONSULTATION ---
DATE: 07/28/2018 REASON FOR CONSULTATION: Assistance with management. I was contacted directly by the ER physician on the evening of the . HISTORY OF PRESENT ILLNESS: Ms. Wheeler is a 77-year-old white female, who relates a month or more above substernal chest pain which she describes as "hernia" and reflux. She states that the symptoms have been present on and off most days and has some relief with pickle juice. No shortness of breath. Nausea does attend her symptoms. No radiation. No abdominal pain and her peritoneal dialysis fluid has been clear throughout. Ultimately, her symptoms became severe enough that she came to the emergency room last night. She also complained of severe weakness that prompted her to come on to the emergency room. Her initial evaluation performed at 1806 found blood pressure 156/69, heart rate 106. I spoke with her by telephone and reviewed her symptoms and asked her to collect a fluid sample. She received an empiric dose of vancomycin and Fortaz pending her fluid results. Her abdominal series suggested a possible ileus, and so I ordered a CT of the abdomen, but this was nonspecific. This morning at the time my exam, she stated that her symptoms were improved, but still present, and described her chest as sore. Not short of breath at the time. No chills or fevers. Again, denies abdominal pain. PAST MEDICAL HISTORY: 1. Chronic kidney disease, 5D, secondary to diabetes. 2. Hypertension. 3. Hyperlipidemia. 4. History of reflux disease. HOME MEDICATIONS: Include Lotrel, vitamin D, furosemide, insulin, Protonix, Zioptan. ALLERGIES: None. SOCIAL HISTORY: She is and lives with her . No alcohol or tobacco. FAMILY HISTORY: Otherwise noncontributory. REVIEW OF SYSTEMS: Otherwise noncontributory. PHYSICAL EXAMINATION: Vital Signs: At 0351, blood pressure 123/56, heart rate 107, respirations 17, afebrile. General: She is in no acute distress. Skin: Warm and dry. Conjunctivae are pink. Pupils are equal. Oropharynx is clear. Tongue is moist. Dentition normal. Neck: Supple. Trachea is midline. Neck veins are not distended. Heart: Regular without gallops or murmurs. Lungs: Equal. No crackles or wheezes. Abdomen: Soft, nontender. Bowel sounds are present. Chest: Modestly tender and over the sternum. Extremities: Have no clubbing, cyanosis, or edema. IMPRESSION: 1. Chronic kidney disease, 5D. We will use the cycler tonight and perform 5 x 2 L exchanges over 10 hours. Overall she is well dialyzed on a light dialysis prescription. Her BUN was 41 on arrival. 2. Possible peritonitis. Though she did have greater than 200 white cells, she had no polymorphonuclears white cells. I will discontinue her antibiotics. 3. Acute coronary syndrome. Since admission, her troponin has risen progressively from 0.07 to 0.490. She has been evaluated by Cardiology, and they are working on a disposition. She has also been evaluated by Gastroenterology. Her medications have been reviewed and no changes are required otherwise. cc: Jostin Anne MD MTDD
[2018-07-28] MEDS: LOPRESSOR PO SCH (21:41)
[2018-07-28] MEDS: PATIENT'S OWN MED BOTH EYES SCH (21:42)
[2018-07-29] MEDS ORDERED: NITROGLYCERIN TOP ONE (01:40)
[2018-07-29] MEDS: CARAFATE LIQUID PO SCH ×4 (02:09→19:54)
[2018-07-29 04:07] LABS: URINE SOURCE CATH
[2018-07-29 04:17] LABS: BILIRUBIN URINE NEGATIVE (NEGATIVE); BLOOD URINE NEGATIVE (NEGATIVE); COLOR YELLOW; GLUCOSE URINE 300 mg/dL (NEGATIVE); KETONE URINE TRACE mg/dL (NEGATIVE); LEUKOCYTES URINE NEGATIVE (NEGATIVE); NITRITE URINE NEGATIVE (NEGATIVE); PROTEIN URINE 300 mg/dL (NEGATIVE); SP GRAVITY URINE 1.012; TURBIDITY URINE CLEAR (CLEAR); UROBILINOGEN URINE NORMAL (NORMAL)
[2018-07-29 04:18] LABS: UR EPITHELIAL CELLS <10 /HPF (<10); URINE BACTERIA NEGATIVE /HPF; URINE RBC <10 /HPF (<10); URINE WBC <10 /HPF (<10)
[2018-07-29 05:40] LABS: HEMATOCRIT 23.6 % (37.0-47.0); HEMOGLOBIN 7.5 g/dL (12.0-16.0); MCH 32.9 PG (27-31); MCHC 31.8 g/dL (33-37); MCV 103.5 FL (81-99); MPV 11.1 FL (7.4-10.4); RBC 2.28 XMIL (4.2-5.4); RDW 13.1 % (11.5-14.5); WBC 16.11 X1000 (4.8-10.8)
[2018-07-29] MEDS: NITROGLYCERIN TOP SCH ×4 (06:43→23:50)
[2018-07-29] MEDS: LASIX IV SCH ×2 (06:44→17:24)
[2018-07-29] MEDS: HUMALOG SUBQ SCH ×5 (06:52→23:54)
[2018-07-29] MEDS: ZOFRAN IV PRN ×2 (07:56→16:17)
[2018-07-29] MEDS ORDERED: ASPIRIN PO SCH (09:00)
[2018-07-29] MEDS ORDERED: SODIUM CHLORIDE 0.9% INJ SCH (09:15)
[2018-07-29] MEDS: ASPIRIN PO SCH (09:56)
[2018-07-29] MEDS: LOTREL 5/20 MG PO SCH (09:56)
[2018-07-29] MEDS: LOPRESSOR PO SCH ×2 (09:56→21:21)
[2018-07-29] MEDS: COSOPT OPHTH SOLN BOTH EYES SCH ×2 (09:58→21:17)
[2018-07-29] MEDS: ALPHAGAN P 0.1% OPHTH SOLN RIGHT EYE SCH ×2 (09:59→21:17)
[2018-07-29] MEDS: ZOSYN 2.25 GM in NS 50 ML IV SCH ×2 (10:10→21:21)
[2018-07-29] MEDS: PROTONIX IV SCH ×2 (10:10→21:17)
--- NOTE | 2018-07-29 11:19 | PROGRESS NOTE ---
DATE: 07/29/2018 SUBJECTIVE: Patient reports no discomfort or chest pain in the substernal area. Denies any nausea, vomiting or diaphoresis. OBJECTIVE: Vital Signs: Temperature 99.7 degrees, heart rate 96, respiratory rate 23, blood pressure 113/55, O2 saturation 90% on non-rebreather mask at 100%. General examination: This is a chronically ill-looking, 77-year-old female, lying in bed in no acute distress. HEENT: Head is normocephalic, atraumatic. Mucous membranes dry. Neck: No JVD noted. No carotid bruits. No lymphadenopathy. No thyromegaly. Cardiovascular exam: S1, S2 heard. No murmurs, gallops, or rubs. Regular rate and rhythm. Respiratory exam: Minimal crackles noted in both pulmonary bases. Patient is not using any accessory muscles or having work of breathing. Abdomen: Soft, a little bit distended, but nontender to palpation in the epigastric area. No signs of peritoneal irritation. The patient has peritoneal dialysis port site within normal limits. Extremities: No clubbing, cyanosis, or edema. The patient also has mild edema in both lower extremities. Neurological exam: Patient alert and oriented x3. Moves 4 extremities. LABORATORY DATA: White cell count is 16.11, hemoglobin 7.5, hematocrit 23.6, platelets 223. ASSESSMENT AND PLAN: 1. Acute coronary syndrome/unstable angina. The patient's chest pain, chest discomfort has improved. Cardiology has been consulted. They think that this is multifactorial. This condition has been treated most likely because of the pneumonia and also anemia. At this point, we will follow recommendations from them. Cardiology reports that this patient needs to have left heart catheterization, but is going to be more committed to have it done in [facility]. 2. Bronchopneumonia. The patient is on vancomycin and Zosyn. We will continue with the same management. Dr. Pittman from Pulmonary following this patient. 3. Epigastric pain. Patient has been evaluated by Gastroenterology. At this point, we are holding any further procedures until this patient is more stable. 4. End-stage renal disease on peritoneal dialysis. Dr. Anne is following this patient. 5. Diabetes mellitus type 2. We will continue with sliding scale insulin and Accu-Chek before meals and also at bedtime. 6. Hypertension. Blood pressure is in the range of 110s and 100s. We will continue with the same management. 7. Anemia of chronic disease. Even though patient has signs of volume overload because this patient was started on Lasix 200 mg intravenous every 12 hours, I prefer to transfuse 1 unit of blood that this patient definitely needs considering her coronary artery disease. We will check hemoglobin tomorrow. 8. Disposition: At this point whenever this patient is more stable, our plan is to send her to [facility] to have left heart catheterization because of this acute coronary syndrome. cc: Eric Nunes MD
--- NOTE | 2018-07-29 11:43 | PULMONOLOGY CONSULTATION ---
DATE: 07/29/2018 REQUESTING PHYSICIAN: Dr. Anne. REASON FOR CONSULTATION: Respiratory failure. HISTORY OF PRESENT ILLNESS: Ms. Hinojosa is a 77-year-old white female who has had diabetes mellitus for approximately 40 years. She was on an oral diabetic medicine for several years before transferring to insulin. She has been on an insulin pump for several years. She subsequently developed end-stage renal disease and has been initiated on peritoneal hemodialysis. The patient has a history of a hiatal hernia (on CT scan, this is relatively small), but reflux did not become an issue until she was initiated on peritoneal dialysis. She reports that pickle juice will decrease the symptoms, and that any fatty foods such as fried food will markedly exacerbate symptoms. She has been eating small meals and is not eating after 3 o'clock in the afternoon. She is sleeping in a chair at night. She has been having increased symptoms and was tentatively scheduled for an EGD. She reports her symptoms became more severe over the last 10 days and she has had a couple episodes of vomiting. Her shortness of breath also had markedly increased. She presented to the emergency room after 3 days of eating Jell-O. Initial CT scan of the abdomen and pelvis revealed small effusions with a small amount of bibasilar atelectasis with mild faint infiltrates in the lung bases. CT scan of the chest the following day revealed significant increase in bibasilar consolidations. The patient is also having pain with inspiration. She is now on a non-rebreather with marginal oxygenation. PAST MEDICAL HISTORY: 1. Diabetes mellitus for many years as outlined above. 2. Small hiatal hernia on CT scan. 3. Hypertension. 4. Dyslipidemia. 5. Gastroesophageal reflux disease. 6. End-stage renal disease on peritoneal dialysis. 7. History of glaucoma. 8. Anemia. 9. Status post cholecystectomy. SOCIAL HISTORY: The patient is a never smoker. She has an attentive at the bedside. FAMILY HISTORY: Positive for diabetes, kidney disease, heart disease, and cervical cancer. PHYSICAL EXAMINATION: General: Reveals a well-developed, well-nourished, slightly overweight white female, resting comfortably in no distress. Vital signs: Blood pressure 133/55, heart rate 96, respiratory rate 23, oxygen saturation 90%. HEENT: Pupils are equal and reactive. Oropharynx is clear. Neck: Supple. Chest: Reveals diminished breath sounds at both lung bases. Cardiac: S1, S2. Abdomen: Soft. Extremities: Reveal trace edema. LABORATORIES: White blood count 16.1, hemoglobin 7.5, platelet count 223,000. Electrolytes yesterday morning, sodium 136, potassium 4.7, chloride 100, bicarbonate 18, BUN 46, creatinine 2.2, glucose 241. Hemoglobin A1c reveals excellent glucose control at 5.3. Arterial blood gas yesterday reveals pH 7.32, pCO2 of 38, PO2 of 86. Troponin is elevated at 0.49 with a followup at 0.596. EKG reveals some ST and T-wave changes, predominantly in the lateral leads without significant change between 6:38 p.m. on 07/27/2018 and 13:55 on 07/28/2018. IMPRESSION: A 77-year-old with gastrointestinal dysfunction (reflux versus gastroparesis versus intestinal ischemia), who presented with nausea and vomiting and has had progressive consolidation in the lung bases consistent with an aspiration pneumonia. She now has acute hypoxemic respiratory failure. Her oxygenation is marginal, but she does not appear to be in distress. She has some elevation in her troponins which may represent myocardial ischemia in a patient who has had a long history of diabetes and now is under increased stress associated with her gastrointestinal dysfunction and pneumonia. RECOMMENDATIONS: 1. We will initiate antibiotics for aspiration pneumonia. 2. Continue incentive spirometry. 3. Increase gastric acid suppression and add cholestyramine in the event that this may represent biliary reflux. 4. The patient's hiatal hernia is small. I do not believe surgical intervention in the future would significantly change her management or improve her outcome. 5. Prognosis is guarded. Continue ICU monitoring. cc: Chris Pittman MD
--- NOTE | 2018-07-29 12:25 | Diag Imaging Result Doc PS360 ---
EXAM: CHEST-PORTABLE INDICATION: CVL Placement TECHNIQUE: One view COMPARISON: 07/27/2018 FINDINGS: There is a newly placed right central line. The tip projects over the region of the lower SVC in the expected position. There is no evidence of pneumothorax postplacement. The central vasculature is more prominent than the previous study suggesting worsening pulmonary venous congestion. Bilateral small pleural effusions are again identified. IMPRESSION: 1.Interval placement of central line as described with no evidence of pneumothorax. 2.Pulmonary venous congestion that appears to have worsened somewhat during the interval. Electronically signed by Walker Cervantes 07/29/2018 12:23 PM
--- NOTE | 2018-07-29 12:38 | NEPHROLOGY PROGRESS NOTE ---
DATE: 07/29/2018 TIME SEEN: Seen by Dr. Anne at 0530. SUBJECTIVE: Ms. Hinojosa appears weak, opens her eyes randomly. VITAL SIGNS: Her most recent vital signs show her last temperature 98.9 degrees , blood pressure 101/66, heart rate 86. Her respirations are 16. She is on 100% non- rebreather. Last recorded saturation is 90%. She has had 290 in, 430 out with 299 per dialysis this a.m. LABORATORY DATA: Sodium 136, potassium 4.7, chloride 100, CO2 18, BUN 46, creatinine 6.2, glucose 241 on the . Previous hemoglobin 7.5. PHYSICAL EXAMINATION: General: This is a 77-year-old female. She is resting quietly in bed. She appears chronically ill. No acute distress though she does have some reflux complaint. Skin: Warm and dry. HEENT: Normocephalic, atraumatic. Conjunctivae pale. Mucous membranes are dry. Neck: Supple. Trachea midline. No evidence of JVD. Cardiovascular: Regular rate and rhythm. She is without murmur or gallop. Lungs: Coarse breath sounds. She remains on O2 supplementation. Abdomen: Soft, nontender. Positive bowel sounds. She is attached to the cycler. PD catheter remains intact without redness or drainage. Genitourinary: With assistance with dialysis. Extremities: Trace edema. Neurological: As above. ASSESSMENT AND PLAN: 1. Chronic kidney disease stage 5D. The patient is on the cycler tonight. Due to her fluid volume overload and her chest x-ray reading continued pulmonary edema, we will plan for 4.5% instillation this a.m. and repeat at noon to assist with fluid volume and drain. We will order some Lasix 200 mg IV this a.m. and p.m. We will evaluate cycler orders later this evening. 2. Aspiration pneumonia. We will consult Dr. Pittman. 3. Electrolytes. These are stable. 4. Acid-base balance secondary to #1. 5. Anemia. The patient has a hemoglobin of 7.5. No indications for transfusion , especially with assistance with fluid volume overload. 6. Leukocytosis. She is currently receiving renal-dosed antibiotics. I would like to thank you for allowing us to follow with this patient. Dictated by KEO Nino for Jostin Anne MD Face to face encounter, data reviewed, discussed with Shae Byrnes on 07/29/18. I agree with the above assessment and plan of care. cc: KEO Nino MD MTDD
--- NOTE | 2018-07-29 13:17 | OPERATIVE NOTE ---
PROCEDURE DATE: 07/29/2018 PREOPERATIVE DIAGNOSES: 1. Poor peripheral venous access. 2. [id number] myocardial infarction. POSTOPERATIVE DIAGNOSES: 1. Poor peripheral venous access. 2. [id number] myocardial infarction. PROCEDURE: Ultrasound-guided insertion of central venous catheter. SURGEON: Blair King MD. ESTIMATED BLOOD LOSS: Scant. COMPLICATIONS: None apparent. FINDINGS: Right internal jugular vein was visualized with ultrasound and found to be compressible, patent, and without thrombus. TECHNIQUE: She was placed supine in her ICU bed. The right neck was prepped and draped in usual sterile fashion. The internal jugular vein was visualized with ultrasound. The skin over the vein was anesthetized with 1% lidocaine. The vein was accessed under ultrasound guidance with 1 stick. The wire passed through the needle easily. The needle was removed. The track was dilated. A triple-lumen central venous catheter was passed over the wire into the vein via the Seldinger technique. The wire was removed. All ports yu back blood easily, and were flushed with saline easily. It was anchored to the skin with silk suture. A sterile dressing was applied. There were no apparent complications. cc: Blair King MD
[2018-07-29] MEDS ORDERED: NS 250 ML ONE (13:36)
--- NOTE | 2018-07-29 13:36 | ECHO REPORT ---
ORDER DATE: 07/28/2018 INDICATION FOR THE STUDY: Chest pain, elevated troponins, hypertension, diabetes. FINDINGS: 1. The right atrium appears normal in size. 2. Mild tricuspid regurgitation, RV systolic pressure of 48. 3. Normal RV size and systolic function. 4. No significant pulmonic insufficiency. 5. Normal left atrial size at 3.6 cm. 6. No mitral valve prolapse, mild mitral regurgitation. 7. Normal LV size and diastolic dimension of 5 cm. Mild left ventricular hypertrophy with a posterior and interventricular septal wall thickness of 1.2 cm each. Severe reduction in LV systolic function with an estimated EF of 20%. There appears to be severe global hypokinesis with more severe hypokinesis to akinesis of the distal portions of the inferior anterior lateral wall as well as the septum and the apex. This could be suggestive of a stress cardiomyopathy-type picture in the correct clinical situation. Optison contrast was used to help better delineate the endocardial borders. 8. The aortic valve opens well. No evidence of stenosis or insufficiency. 9. The aorta appears normal in visualized segments. 10.There is no pericardial effusion. There does appear to be a pleural effusion. cc: MD Eric Gonzalez MD
[2018-07-29] MEDS ORDERED: BLISTEX MEDICATED BERRY LIP BALM TOP PRN (17:56)
--- NOTE | 2018-07-29 19:33 | PROGRESS NOTE ---
DATE: 07/29/2018 CARDIOLOGY FOLLOW-UP NOTE: SUBJECTIVE: Patient reports feeling better and denies shortness of breath or chest discomfort since yesterday. However, she still require significant supplemental oxygen. Efforts are being made to augment volume removal through peritoneal dialysis. She did not have much of a response to IV Lasix 200 mg. OBJECTIVE: Vital Signs: Blood pressure 116/70, heart rate 86, oxygen saturation 92%. Neck: JV distention cannot be appreciated. Chest: Auscultation of the chest reveals bibasilar inspiratory crackles. Cardiovascular: Exam reveals a regular rate and rhythm without appreciable murmur or gallop. There is no evidence of peripheral edema. LABORATORY DATA: Includes white blood cell count 16.11, hematocrit 23.6, hemoglobin 7.5, platelet count 223,000. Repeat troponin yesterday evening 0.596. IMPRESSION: 1. Acute coronary syndrome/unstable angina, likely not an acute thrombotic event, but rather a coronary instability provoked by stress of volume overload and anemia, as well as possible pneumonia. In essence, she has myocardial demand/blood flow mismatch. Her symptoms seem to be stabilizing with treatment of volume overload and anemia, as well as pneumonia. It would appear that significant coronary atherosclerosis has been unmasked. Troponins have not been very high and are compatible with acute coronary syndrome provoked by demand ischemia. 2. Anemia, which appears to be significant. Agree with plans to transfuse packed red blood cells. 3. Hypoxemia with chest CT scan indicating pulmonary edema, small bilateral pleural effusions, and some consolidation in the lower lungs possibly pneumonia. Presence of leukocytosis would suggest possible pneumonia. 4. End-stage renal disease requiring chronic peritoneal dialysis. 5. Diabetes mellitus, type 2. 6. Hypertension. RECOMMENDATIONS: 1. Continue supplemental oxygen and efforts to remove intravascular volume as best possible via peritoneal dialysis. Nephrology assistance greatly appreciated. 2. Agree with transfusion of packed red blood cells. 3. Agree with treatment for possible pneumonia. 4. Echocardiography report reviewed and indicates left ventricular ejection fraction of 20% in the setting of severe global hypokinesis. 5. Once patient clinically stable, she should be considered for further cardiac evaluation with coronary angiography. This might best be accomplished in [facility], given her severe comorbidities and left ventricular dysfunction. cc: Floyd Jacinto MD
[2018-07-29] MEDS: SODIUM CHLORIDE 0.9% INJ SCH (21:17)
[2018-07-29] MEDS: QUESTRAN PO SCH (21:18)
[2018-07-29] MEDS: PATIENT'S OWN MED BOTH EYES SCH (21:18)
[2018-07-30] MEDS: CARAFATE LIQUID PO SCH ×4 (02:23→20:25)
[2018-07-30] MEDS: HUMALOG SUBQ SCH ×6 (04:12→23:48)
[2018-07-30 05:00] LABS: ALLEN TEST YES; BE -3.4 mmoll (-3.0-3.0); BLOOD TYPE ARTERIAL; HCO3-(ACT) 22.2 mmoll (20.0-26.0); METHB 1.2 % (0.0-1.5); O2HB 94.2 % (95.0-99.0); PCO2(98.6) 49 mmHg (35-45); PO2(98.6) 81 mmHg (60-100); SAMPLE BLOOD; SAO2 96.6 % (95.0-100.0); THB 14.3 g/dL (11.5-17.4); pH(98.6) 7.29 (7.35-7.45)
[2018-07-30 05:01] LABS: MODALITY PRB
[2018-07-30] MEDS: NITROGLYCERIN TOP SCH ×4 (05:50→23:48)
[2018-07-30 06:00] LABS: HEMATOCRIT 25.6 % (37.0-47.0); HEMOGLOBIN 8.2 g/dL (12.0-16.0); MPV 11.4 FL (7.4-10.4); RBC 2.56 XMIL (4.2-5.4); RDW 14.5 % (11.5-14.5); WBC 15.69 X1000 (4.8-10.8)
[2018-07-30 06:14] LABS: ALB/GLOB RATIO 0.9; ALBUMIN 3.1 g/dL (3.5-5.0); CALCIUM 9.7 mg/dL (8.8-10.2); TOTAL BILIRUBIN 0.22 mg/dL (0.20-1.00); TOTAL PROTEIN 6.4 g/dL (6.3-8.3)
--- NOTE | 2018-07-30 06:40 | Diag Imaging Result Doc PS360 ---
EXAM: CHEST-PORTABLE HISTORY: respiratory failure TECHNIQUE: Portable chest single view COMPARISON: 07/29/2018 FINDINGS: Poor inspiratory effort. No change in the right jugular line. There are bilateral perihilar infiltrates with pulmonary edema. These findings are less pronounced. Dense infiltrates in the left lower lobe remain and there is a small left pleural effusion. IMPRESSION: Slight interval improvement. Electronically signed by Sekou Traylor 07/30/2018 6:37 AM
[2018-07-30] MEDS: PROTONIX IV SCH ×2 (08:49→20:27)
[2018-07-30] MEDS: ZOSYN 2.25 GM in NS 50 ML IV SCH ×2 (08:49→20:31)
[2018-07-30] MEDS: SODIUM CHLORIDE 0.9% INJ SCH (08:49)
[2018-07-30] MEDS: LOPRESSOR PO SCH ×2 (08:50→20:26)
[2018-07-30] MEDS: LOTREL 5/20 MG PO SCH (08:50)
[2018-07-30] MEDS: ASPIRIN PO SCH (08:50)
[2018-07-30] MEDS: QUESTRAN PO SCH ×2 (08:50→20:34)
[2018-07-30] MEDS: ALPHAGAN P 0.1% OPHTH SOLN RIGHT EYE SCH ×2 (08:51→20:25)
[2018-07-30] MEDS: COSOPT OPHTH SOLN BOTH EYES SCH ×2 (08:51→20:25)
[2018-07-30] MEDS: VANCOMYCIN 1 GM/NS 1 GM/250 ML IVPB IV SCH (09:21)
--- NOTE | 2018-07-30 09:26 | PROGRESS NOTE ---
DATE: 07/30/2018 SUBJECTIVE: Patient reports feeling fine. Denies any more chest pain, chest discomfort, diaphoreses or nausea and vomiting. No acute issues noted as per nursing staff overnight. Nursing staff reports that whenever she moves some, her oxygen needs go up when she desaturates. Currently, she is requiring a non-rebreather mask. OBJECTIVE: Vital Signs: Temperature 98 degrees, heart rate 78, respiratory rate 23, blood pressure 126/65. O2 saturation 95% on non-rebreather mask. General: This is a chronically ill appearing and frail 77-year-old female lying in bed in no acute distress. HEENT: Head is normocephalic and atraumatic. Mucous membranes dry. Neck: No JVD noted. No carotid bruits. No lymphadenopathy. No thyromegaly. Cardiovascular: S1, S2 heard. No murmurs, gallops, or rubs. Regular rate and rhythm. Respiratory: Minimal crackles and rhonchi noted still in both pulmonary gardner. Patient is not using any accessory muscles or having work up breathing. Abdomen: Soft and a little bit distended. Nontender to palpation. No signs of peritoneal irritation. The patient has peritoneal dialysis port which looks normal. Extremities: No clubbing or cyanosis, but patient has mild edema in both lower extremities. Neurological: Patient alert and oriented x3. Moves all 4 extremities. LABORATORY DATA: White cell count 15.69, hemoglobin 8.2 hematocrit 25.6, and platelets 211,000. ABG that shows pH 7.39 with pCO2 of 49, and PO2 of 81. Creatinine 6.0 and BUN 49. ASSESSMENT AND PLAN: 1. Acute coronary syndrome/unstable angina. Clinically, the patient is stable. No more chest pain or chest discomfort reported. At this point, the plan short term is to continue treating conservatively. She ideally needs to have a left heart catheterization but unfortunately considering all her medical conditions going on at the same time, I think we need to stabilize her first in order to proceed with any procedures. Cardiology has been consulted. We will follow recommendations. If the left heart catheterization needed soon, the patient will be sent to the [facility]. 2. Bilateral pneumonia. Patient continues to be on vancomycin and Zosyn. The x-ray from yesterday showed slight interval improvement. We will continue with oxygen treatment on antibiotics as above. Dr. Pittman from pulmonary following this patient. 3. End-stage renal disease on peritoneal dialysis. Dr. Anne following this patient. 4. Diabetes mellitus type 2. We will continue with sliding scale insulin. Accu-Chek before meals and also at bedtime. 5. Hypertension. Blood pressure definitely under control. We will continue with the same medications. 6. Anemia of chronic disease. The patient has received so far 1 unit of blood and hemoglobin is 8.2 today. We will continue to monitor. 7. Disposition: At this point we are working on having this patient more stable. Then most likely on Thursday, we will be able to send her to the [facility] for left heart catheterization. cc: Eric Nunes MD
--- NOTE | 2018-07-30 14:57 | PROGRESS NOTE ---
DATE: 07/30/2018 SUBJECTIVE: The patient is in the ICU now. She is on nonrebreather oxygen. OBJECTIVE: Vital signs: Temperature 97.7, pulse 71, respirations 11, blood pressure 89/44. General: The patient was resting. She did arouse easily. Her daughter was at the bedside. DIAGNOSTIC DATA: Hematology shows WBC of 15.69, hemoglobin 8.2, hematocrit 25.6, MCV of 100.0, platelets 211. Chemistry shows sodium 137, potassium 4.0, chloride 97, CO2 is 23, BUN is 49, creatinine 6.0, glucose 156. ASSESSMENT AND PLAN: 1. Acute coronary syndrome, angina. The patient has had cardiac evaluation. Continue current recommendations. 2. Pneumonia, on antibiotics and respiratory support. 3. End stage renal disease, on peritoneal dialysis. 4. Chest pain, worsening gastroesophageal reflux disease symptoms. The patient had tentatively been scheduled for an EGD, but that was canceled due to her respiratory and cardiac issues. We will continue to follow, and further plans will be made according to her progress. 5. Anemia. Continue to monitor. Transfuse packed red blood cells if needed. I have discussed this case with Dr. Osborne. Dictated by KEO Navarrete for Dameon Osborne MD cc: KEO Kaufman MD
--- NOTE | 2018-07-30 17:18 | CTA CORONARY ---
PROCEDURE NAME: - SUBJECTIVE: She is still requiring high-flow oxygen. She denies pain or shortness of breath at this time, but she does desaturate when she talks. OBJECTIVE: Vital Signs: Blood pressure 101/50 heart rate 83, respirations 28. Afebrile. General: Respiratory status as above. Skin: Warm and dry. Conjunctivae are pink. Oropharynx is clear and moist. Neck: Neck veins are not appreciated. Heart: Regular. No gallops. Lungs: Equal. No crackles. Abdomen: Soft, nontender. Bowel sounds are present. Extremities: No edema, clubbing, or cyanosis. IMPRESSION: Chronic kidney disease, 5D. She has pulmonary edema on her chest x-ray, in addition to her other pulmonary findings. We will continue high concentration Dianeal for the next 24 hours, in order to target increased ultrafiltration, and therefore improvement of her pulmonary edema/volume overload. Her electrolytes and acid-base are acceptable. No other changes from my perspective. I appreciate the help of the consultants. cc: Jostin Anne MD
[2018-07-30] MEDS: PATIENT'S OWN MED BOTH EYES SCH (20:36)
[2018-07-31] MEDS: CARAFATE LIQUID PO SCH ×4 (03:26→20:59)
[2018-07-31] MEDS: HUMALOG SUBQ SCH ×6 (03:29→23:48)
[2018-07-31 04:49] LABS: ALLEN TEST YES; BE -2.2 mmoll (-3.0-3.0); BLOOD TYPE ARTERIAL; HCO3-(ACT) 23.1 mmoll (20.0-26.0); METHB 1.4 % (0.0-1.5); O2(CT) 22.2 mL/dL (15.0-23.0); O2HB 95.4 % (95.0-99.0); PO2(98.6) 104 mmHg (60-100); SAMPLE BLOOD; SAO2 97.8 % (95.0-100.0); THB 16.5 g/dL (11.5-17.4)
[2018-07-31 04:51] LABS: MODALITY NRB
[2018-07-31 04:52] LABS: PCO2(98.6) 51 mmHg (35-45)
[2018-07-31] MEDS: NITROGLYCERIN TOP SCH ×4 (05:30→23:48)
[2018-07-31] MEDS: MORPHINE IV PRN (06:00)
[2018-07-31 06:39] LABS: HEMATOCRIT 26.6 % (37.0-47.0); HEMOGLOBIN 8.6 g/dL (12.0-16.0); MCH 31.6 PG (27-31); MCHC 32.3 g/dL (33-37); MCV 97.8 FL (81-99); MPV 11.3 FL (7.4-10.4); RBC 2.72 XMIL (4.2-5.4); RDW 14.1 % (11.5-14.5); WBC 13.76 X1000 (4.8-10.8)
--- NOTE | 2018-07-31 06:44 | Diag Imaging Result Doc PS360 ---
EXAM: CHEST-PORTABLE HISTORY: respiratory failure TECHNIQUE: Portable chest single view COMPARISON: 07/30/2018 FINDINGS: Poor inspiratory effort. No change in the right jugular line. No pneumothorax. There is a small left pleural effusion. Perihilar infiltrates and/or pulmonary edema remain with no improvement. Consolidation in the left lower lobe. IMPRESSION: Stable chest Electronically signed by Sekou Traylor 07/31/2018 6:42 AM
[2018-07-31 07:03] LABS: ALB/GLOB RATIO 1.1; ALBUMIN 3.2 g/dL (3.5-5.0); CALCIUM 9.6 mg/dL (8.8-10.2); CREATININE 6.6 mg/dL (0.5-0.9); POTASSIUM 3.3 mmol/L (3.5-5.1); TOTAL BILIRUBIN 0.16 mg/dL (0.20-1.00); TOTAL PROTEIN 6.2 g/dL (6.3-8.3)
[2018-07-31] MEDS: ASPIRIN PO SCH (08:37)
[2018-07-31] MEDS: LOPRESSOR PO SCH ×2 (08:37→21:01)
[2018-07-31] MEDS: PROTONIX IV SCH ×2 (08:37→21:00)
[2018-07-31] MEDS: ALPHAGAN P 0.1% OPHTH SOLN RIGHT EYE SCH ×2 (08:37→21:00)
[2018-07-31] MEDS: ZOSYN 2.25 GM in NS 50 ML IV SCH ×2 (08:38→21:01)
[2018-07-31] MEDS: COSOPT OPHTH SOLN BOTH EYES SCH ×2 (08:38→21:00)
[2018-07-31] MEDS: QUESTRAN PO SCH ×2 (08:38→21:01)
[2018-07-31] MEDS: LOTREL 5/20 MG PO SCH (08:38)
--- NOTE | 2018-07-31 14:59 | PROGRESS NOTE ---
DATE: 07/31/2018 SUBJECTIVE: Patient continues to be in the ICU. She is on nonrebreather oxygen. I have spoken with her family. They believe that she may be transferred to [facility] for further cardiac evaluation including cardiac catheterization at the beginning of the week. OBJECTIVE: Vital Signs: Temperature 97.6 degrees, pulse 70, respirations 11, blood pressure 116/62. General: Patient is awake and alert. No acute distress. Her daughter is at the bedside. LABORATORY: Hematology. WBC 13.76, hemoglobin 8.6, MCV 26.6, platelet 244, 000. Chemistry. Sodium 139, potassium 3.3, chloride 100, CO2 of 23, BUN 46, glucose 111. ASSESSMENT AND PLAN: 1. Acute coronary syndrome, angina. Patient has had cardiac evaluation. I believe they may transfer to [facility] for further testing including cardiac catheterization. 2. Pneumonia on antibiotics. 3. End-stage renal disease on peritoneal dialysis following with Dr. Anne. 4. Chest pain and worsening gastroesophageal reflux disease symptoms. The patient had tentatively been scheduled next week for an EGD, which has been canceled. We will follow up with her as an outpatient once her cardiac evaluation has been completed. 5. Anemia. She may need further evaluation on her anemia. EGD can be done as an outpatient once her cardiac status has been stabilized. I have discussed this case with Dr. Osborne. Dictated by KEO Navarrete for Dameon Osborne MD cc: KEO Kaufman MD [facility]
--- NOTE | 2018-07-31 15:19 | PROGRESS NOTE ---
DATE: 07/31/2018 SUBJECTIVE: The patient reports feeling fine. She noticed some chest discomfort that was relieved by morphine. No other issues noted as per nursing staff overnight. She continues to require high amounts of oxygen by non-rebreather. OBJECTIVE: Vital Signs: Temperature 98.9 degrees, heart rate 84, respiratory rate 17, blood pressure 136/67, O2 saturation 98% on non-rebreather mask at 100%. General examination: This is a chronically ill looking and frail, 77-year-old female, lying in bed in no acute distress. HEENT: Head is normocephalic and atraumatic. Mucous membranes dry. Neck: No JVD noted. No carotid bruits. No lymphadenopathy. No thyromegaly. Cardiovascular exam: S1, S2 heard. No murmurs, gallops, or rubs. Regular rate and rhythm. Respiratory exam: Minimal crackles noted in both bases. No rhonchi is noted. The patient is not using any accessory muscles or having work of breathing. Abdomen: Soft, a little bit distended. Nontender to palpation. No signs of peritoneal irritation. The patient has a peritoneal dialysis catheter in place. Extremities: No clubbing or cyanosis, but the patient has mild edema in both lower extremities. Neurological exam: Patient is alert and oriented x3. Moves 4 extremities. LABORATORY DATA: White cell count 13.76, hemoglobin 8.6, hematocrit 26.6, platelets 244. ABG shows pH 7.30, with pCO2 51, PO2 104 on non-rebreather mask. BMP shows potassium 3.3, creatinine 6.6. ASSESSMENT AND PLAN: 1. Acute coronary syndrome/unstable angina. Clinically, this patient had just 1 more episode of chest discomfort this morning. So far, she reports feeling better. At this point, we will continue with the same management. Cardiology is planning to do a left heart catheterization. This needs to be done at [facility]. I think she may need to be ready to have that exam probably on Thursday. We will continue to monitor this patient closely. 2. Bilateral pneumonia. The patient is on vancomycin and something. The x-ray basically did show stable chest, although I think she is still having some degree of pulmonary edema. At this point, we will continue with the same management. 3. End-stage renal disease on peritoneal dialysis. Dr. Anne following this patient. 4. Diabetes mellitus type 2. We will continue with sliding scale insulin and Accu-Chek before meals and also at bedtime. 5. Hypertension. Blood pressure is under control. We will continue with the same management. 6. Anemia of chronic disease. So far, after 1 unit of blood, the hemoglobin has reached 8.6. At this point, we will continue to monitor complete blood count daily. DISPOSITION: At this point, we are working to have this patient more stable, so she can be able to undergo left heart catheterization. cc: Eric Nunes MD MTDD
--- NOTE | 2018-07-31 15:21 | CARDIOLOGY PROGRESS NOTE ---
DATE: 07/31/2018 SUBJECTIVE: Ms. Hinojosa was not in any chest pain overnight. She is breathing better she thinks. OBJECTIVE: Vital Signs: She is afebrile, heart rate 84. Her blood pressure is 136/67. General: Generally, she is in no acute distress. Cardiovascular: She sounds to be in a regular rate and rhythm. I do not hear any obvious murmurs. She has no S3. Chest exam: Sounds mildly and diffusely reduced throughout. No increased work of breathing. She is on a non-rebreather presently. Abdomen: Soft, nontender. No obvious organomegaly. PERTINENT DATA: White count is 13.7, which has been trending down steadily since the , hematocrit 26 which is stable, platelet count 244. Her sodium is 139, potassium 3.3. BUN 46, creatinine 6.6. Her chest x-ray today suggested stability from yesterday with consolidation in the left lower lobe and perihilar infiltrates or pulmonary edema noted. ASSESSMENT: Ms. Hinojosa is a 77-year-old female, who presented with a likely supply/demand mismatch type event caused by stress of volume overload, as well as anemia and possible pneumonia. PLAN: We will continue to titrate medications. She has had a marginal improvement in her pulmonary standpoint. Her ejection fraction on echo was 20% with global hypokinesis. She is on a beta-bharathi, as well as ADAM inhibitor. Lipid panel will be checked. cc: Geovanny Wheeler MD
[2018-07-31] MEDS: PATIENT'S OWN MED BOTH EYES SCH (21:03)
--- NOTE | 2018-07-31 21:41 | NEPHROLOGY PROGRESS NOTE ---
DATE: 07/31/2018 SUBJECTIVE: She describes herself as better today. She still does desaturate when she comes off of the face mask. She has not been able to eat all that well. No nausea or vomiting, however. OBJECTIVE: Vital Signs: Blood pressure 116/62, heart rate 70, respiration 11, afebrile. Generally: No acute distress. Skin: Warm and dry. Eyes: Conjunctivae are pink. Neck: Neck veins are not visible. Heart: Regular. Lungs: Equal and clear. Abdomen: Soft, nontender. Bowel sounds present. Extremities: No edema, clubbing or cyanosis. IMPRESSION: Chronic kidney disease 5D. We have increased her dialysis prescription. Her BUN has been stable in the 40s. She still has pulmonary edema described on her chest x-ray though she has no obvious hypervolemia on exam otherwise. We will continue on aggressive treatment plan to deal with her volume overload if it is present. No other changes. cc: Jostin Anne MD
[2018-08-01] MEDS: CARAFATE LIQUID PO SCH ×4 (02:41→20:22)
[2018-08-01] MEDS: HUMALOG SUBQ SCH ×6 (03:19→22:59)
[2018-08-01 04:47] LABS: ALLEN TEST YES; BE -0.5 mmoll (-3.0-3.0); BLOOD TYPE ARTERIAL; HCO3-(ACT) 24.5 mmoll (20.0-26.0); METHB 0.6 % (0.0-1.5); O2(CT) 14.5 mL/dL (15.0-23.0); O2HB 95.7 % (95.0-99.0); PCO2(98.6) 46 mmHg (35-45); PO2(98.6) 83 mmHg (60-100); SAMPLE BLOOD; SAO2 98.3 % (95.0-100.0); THB 10.7 g/dL (11.5-17.4); pH(98.6) 7.35 (7.35-7.45)
[2018-08-01 04:50] LABS: MODALITY NRB
[2018-08-01 05:19] LABS: HEMATOCRIT 26.5 % (37.0-47.0); HEMOGLOBIN 8.6 g/dL (12.0-16.0); MCHC 32.5 g/dL (33-37); MCV 98.5 FL (81-99); RBC 2.69 XMIL (4.2-5.4); RDW 14.1 % (11.5-14.5); WBC 13.27 X1000 (4.8-10.8)
[2018-08-01] MEDS: NITROGLYCERIN TOP SCH ×3 (05:29→18:15)
[2018-08-01 05:40] LABS: CHOLESTEROL 141 mg/dL (0-200); HDL 44 mg/dL (45-65); LDL 72 mg/dL; TRIGLYCERIDES 126 mg/dL (35-135); VLDL 25 mg/dL
[2018-08-01 05:51] LABS: ALB/GLOB RATIO 0.7; ALBUMIN 2.7 g/dL (3.5-5.0); CALCIUM 9.6 mg/dL (8.8-10.2); CREATININE 7.4 mg/dL (0.5-0.9); POTASSIUM 3.5 mmol/L (3.5-5.1); TOTAL BILIRUBIN 0.22 mg/dL (0.20-1.00); TOTAL PROTEIN 6.5 g/dL (6.3-8.3)
--- NOTE | 2018-08-01 08:04 | Diag Imaging Result Doc PS360 ---
EXAM: CHEST-PORTABLE - 08/01/2018 HISTORY: respiratory failure TECHNIQUE: Portable chest COMPARISON: 07/31/2018 FINDINGS: Heart size appears upper normal. There has been mild decrease in infiltrate on the left. There is stable small left pleural effusion. There has been mild decrease in mild perihilar infiltrate/edema on the right. There is no pneumothorax identified. IMPRESSION: Mild improvement in pneumonia and/or pulmonary edema compared to prior. Electronically signed by Fuad Williamson 08/01/2018 8:02 AM
[2018-08-01] MEDS: LOTREL 5/20 MG PO SCH (08:30)
[2018-08-01] MEDS: MORPHINE IV PRN ×3 (08:30→22:46)
[2018-08-01] MEDS: ZOSYN 2.25 GM in NS 50 ML IV SCH ×2 (08:31→20:22)
[2018-08-01] MEDS: COSOPT OPHTH SOLN BOTH EYES SCH ×2 (08:31→20:23)
[2018-08-01] MEDS: ASPIRIN PO SCH (08:31)
[2018-08-01] MEDS: QUESTRAN PO SCH ×2 (08:31→20:22)
[2018-08-01] MEDS: LOPRESSOR PO SCH ×2 (08:31→20:22)
[2018-08-01] MEDS: ALPHAGAN P 0.1% OPHTH SOLN RIGHT EYE SCH ×2 (08:31→20:22)
--- NOTE | 2018-08-01 09:59 | PROGRESS NOTE ---
DATE: 08/01/2018 SUBJECTIVE: The patient, according to nursing staff, continues to require high amount of oxygen. She is using now this nasal high-flow nasal cannula Optiflow. No reports of chest pain again, just mild abdominal pain. OBJECTIVE: Vital Signs: Temperature 98.8, heart rate 80, respiratory rate 16, blood pressure 133/60, O2 saturation 96% on Optiflow. General Examination: This is a chronically ill-looking, 77-year-old, female lying in bed, in no acute distress. HEENT: Head is normocephalic and atraumatic. Mucous membranes are dry. Neck: No JVD noted. No carotid bruits. No lymphadenopathy. No thyromegaly. Cardiovascular Examination: S1 and S2 heard. No murmurs, gallops, or rubs. Regular rate and rhythm. Respiratory Examination: There are very minimal crackles noted in both bases, definitely better in comparing with previous days. Patient is not using any accessory muscles or having work of breathing. Abdomen: Soft, a little bit distended, but nontender to palpation. No signs of peritoneal irritation. The patient has a peritoneal dialysis catheter in place with no surrounding erythema. Extremities: No clubbing or cyanosis. Mild edema in the lower extremities. Neurological Examination: The patient is alert and oriented x3. Moves 4 extremities. Laboratory Data: White cell count 13.27, hemoglobin 8.6, hematocrit 26.5, platelets 250,000. ABG shows pH 7.35, with pCO2 46. The BMP shows sodium 135, creatinine 7.4, glucose 154. ASSESSMENT AND PLAN: 1. Acute respiratory failure, multifactorial. I think it is because of this unstable angina, bilateral pneumonia, and anemia that is getting better. At this point, she continues to require a high amount of oxygen by Optiflow. Pulmonary is following this patient. We will follow recommendations. 2. Acute coronary syndrome/unstable angina. The patient has had positive troponins. Dr. Jacinto from cardiology is planning to do a left heart catheterization but he recommends to send her to [facility] in order to that. We will see if she is ready to go Thursday or not. 3. Bilateral pneumonia. Patient, antibiotic-rowe, is on vancomycin and Zosyn. We will continue with the same management. White cell count is almost back to normal. We will continue with the same medications. 4. End-stage renal disease, on peritoneal dialysis. Dr. Anne is following this patient. X- ray shows improvement in pulmonary edema. We will continue with the same management. 5. Diabetes mellitus type 2. We will continue with sliding scale insulin and Accu-Cheks before meals and also at bedtime. 6. Hypertension. Blood pressure is under control. We will continue with the same management. 7. Anemia of chronic disease, stable. Hemoglobin is 8.6. We will continue with the same management. 8. Disposition. So far, the patient will need to be sent to [facility] for a left heart catheterization. We will see when this patient is medically stable from a cardiology standpoint. cc: Eric Nuens MD
[2018-08-01] MEDS: PROTONIX IV SCH ×2 (11:49→20:22)
--- NOTE | 2018-08-01 13:19 | CARDIOLOGY PROGRESS NOTE ---
DATE: 08/01/2018 SUBJECTIVE: Ms. Hinojosa denies any chest pain overnight. She reports just a generalized fatigued today. PHYSICAL: Vital signs: She is afebrile. Her heart rates appear to be primarily in the mid to low 80s, blood pressure is 129/64. General: She is in no acute distress. Cardiovascular: She sounds to be in a regular rate and rhythm. She has no obvious murmurs. She has no S3. She has no lower extremity edema. Lungs: Her chest exam sounds clear bilaterally. She has no increased work of breathing. Abdomen: Soft, nontender. She has somewhat poor inspiratory effort. DATA: Her chest x-ray shows mild improvement in the pneumonia and her pulmonary edema compared to previous. White count 13.2, hematocrit 26, platelet count 250,000. Her ABG seems to show a continued elevated AA gradient. Her sodium is 135, potassium is 3.5, BUN 52, creatinine 7.4. ASSESSMENT: Ms Hinojosa is a 77-year-old female with a history of end-stage renal disease, who presented with a troponin elevation. PLAN: Her ejection fraction this hospitalization is 20% with global hypokinesis. Her EKG continues on a beta-bharathi as well an ADAM inhibitor. She had a lipid profile checked today with an LDL cholesterol of 72. She is not currently on a statin. I will initiate atorvastatin 40 mg at bedtime, considering her sof-FH-pbyxaesak PR. Dr. Jacinto had had discussions with them about potential transfer to [facility] for cardiac catheterization. Currently, she is possibly undergoing adjustments in her hemodialysis. Primary cardiology team will be back tomorrow to make arrangements for definitive cardiac evaluation. cc: Geovanny Wheeler MD
--- NOTE | 2018-08-01 13:51 | PROGRESS NOTE ---
DATE: 08/01/2018 Ms. Hinojosa is resting comfortably. She denies any abdominal pain. She has not had any nausea or vomiting. She has not eaten much but was able to keep half of the Nepro down. She reports no bowel movement since her admission to the hospital. VITALS: Temperature was 98.8 degrees, pulse 85, breathing 16, blood pressure was 129/64. Abdomen: The dialysis catheter in place. In fact, she is undergoing peritoneal dialysis now. Abdomen otherwise soft, nontender. Bowel sounds are audible. LABORATORIES: Reviewed which showed hemoglobin 8.6, hematocrit 26.5. PLAN: At this point, no new suggestions except adding milk of magnesia 30 mL to see if that can help her bowel movements. In the meantime, continue PPI. Continue supportive care. From GI point of view again, no new suggestions. We will follow up. cc: Dameon Osborne MD
--- NOTE | 2018-08-01 14:35 | NEPHROLOGY PROGRESS NOTE ---
DATE: 08/01/2018 SUBJECTIVE: She is about the same. She is still requiring high-flow nasal cannula oxygen. OBJECTIVE: Vital Signs: Blood pressure 129/64, heart rate 85, respirations 16, afebrile. General: No acute distress. Skin: Warm and dry. Neck: Neck veins are not appreciated. Heart: Regular. No gallops. Lungs: Equal. No crackles. Abdomen: Soft, nontender. Bowel sounds present. Extremities: No edema, clubbing, or cyanosis. IMPRESSION: Chronic kidney disease 5D with pulmonary edema. I instructed her that if we have no improvement in the next 24 hours, then we will need to convert to hemodialysis for volume management. cc: Jostin Anne MD
[2018-08-01] MEDS: LIPITOR PO SCH (20:22)
[2018-08-01] MEDS: PATIENT'S OWN MED BOTH EYES SCH (20:29)
[2018-08-02] MEDS: NITROGLYCERIN TOP SCH ×5 (01:20→23:42)
[2018-08-02] MEDS: HUMALOG SUBQ SCH ×7 (01:21→23:37)
[2018-08-02] MEDS: CARAFATE LIQUID PO SCH ×4 (02:50→20:04)
[2018-08-02 04:49] LABS: ALLEN TEST YES; BE 1.5 mmoll (-3.0-3.0); BLOOD TYPE ARTERIAL; HCO3-(ACT) 26.1 mmoll (20.0-26.0); METHB 1.3 % (0.0-1.5); O2HB 96.7 % (95.0-99.0); PCO2(98.6) 39 mmHg (35-45); PO2(98.6) 189 mmHg (60-100); SAMPLE BLOOD; SAO2 98.9 % (95.0-100.0); THB 9.2 g/dL (11.5-17.4); pH(98.6) 7.43 (7.35-7.45)
[2018-08-02 04:57] LABS: HEMOGLOBIN 8.6 g/dL (12.0-16.0); MCH 31.7 PG (27-31); MCHC 31.9 g/dL (33-37); MCV 99.6 FL (81-99); MPV 10.9 FL (7.4-10.4); RBC 2.71 XMIL (4.2-5.4); RDW 13.6 % (11.5-14.5); WBC 11.21 X1000 (4.8-10.8)
[2018-08-02 04:59] LABS: MODALITY NRB
[2018-08-02 05:20] LABS: ALB/GLOB RATIO 0.7; ALBUMIN 2.6 g/dL (3.5-5.0); POTASSIUM 3.1 mmol/L (3.5-5.1); TOTAL BILIRUBIN 0.34 mg/dL (0.20-1.00); TOTAL PROTEIN 6.4 g/dL (6.3-8.3)
[2018-08-02 05:39] LABS: CREATININE 6.9 mg/dL (0.5-0.9)
--- NOTE | 2018-08-02 06:48 | NEPHROLOGY PROGRESS NOTE ---
DATE: 08/02/2018 SUBJECTIVE: She is asleep, but arousable. Still requiring a closed face mask. No other new symptoms. No nausea or vomiting etc. OBJECTIVE: Vital Signs: Blood pressure 146/67, heart rate 81, respirations 17, temperature 99.2 degrees. Intake 700 mL. Output 0. General: No acute distress. Skin: Warm and dry. Conjunctivae are pink. Oropharynx is dry. Neck: Neck veins are not visible. Heart: Regular. No gallops. Lungs: Equal. No crackles or wheezes. Abdomen: Soft, nontender. Bowel sounds present. Extremities: No edema, clubbing or cyanosis. IMPRESSION: Chronic kidney disease 5D. Electrolytes, acid-base and uremia are all well managed; however, she continues to have evidence of pulmonary edema on her chest x-ray despite no obvious neck vein distention or peripheral edema. Her ultrafiltration remains low despite a more aggressive dialysis prescription. As such, I believe short interval of hemodialysis in order to optimize her volume status would be the expeditious next step. I have held her NPO and we will discuss this with Dr. King in terms of getting access. Hemodialysis once access is available. cc: Jostin Anne MD
--- NOTE | 2018-08-02 07:31 | Diag Imaging Result Doc PS360 ---
EXAM: CHEST-PORTABLE INDICATION: respiratory failure TECHNIQUE: One view COMPARISON: 08/01/2018 FINDINGS: The right central line is in stable position. The infiltrate in the left perihilar region appears to be marginally improved. The right perihilar infiltrate is approximately stable. No new consolidation is identified. Cardiac silhouette is stable. IMPRESSION: Marginal improvement on the left. Electronically signed by Walker Cervantes 08/02/2018 7:28 AM
[2018-08-02] MEDS: ALPHAGAN P 0.1% OPHTH SOLN RIGHT EYE SCH ×2 (08:23→20:05)
[2018-08-02] MEDS: ZOSYN 2.25 GM in NS 50 ML IV SCH ×2 (08:24→20:05)
[2018-08-02] MEDS: PROTONIX IV SCH ×2 (08:24→20:04)
[2018-08-02] MEDS: LOPRESSOR PO SCH ×2 (08:24→20:04)
[2018-08-02] MEDS: LOTREL 5/20 MG PO SCH (08:24)
[2018-08-02] MEDS: SODIUM CHLORIDE 0.9% INJ SCH (08:24)
[2018-08-02] MEDS: COSOPT OPHTH SOLN BOTH EYES SCH ×2 (08:25→20:05)
[2018-08-02] MEDS: QUESTRAN PO SCH ×2 (09:19→20:05)
--- NOTE | 2018-08-02 10:37 | PROGRESS NOTE ---
DATE: 08/02/2018 SUBJECTIVE: The patient reports feeling stable, although she continues to require a high amount of oxygen. In this case, it is a nonrebreather mask. Initially, she was using Optiflow, but apparently, according to the patient, that was making her breathe faster. With nonrebreather mask, she is more comfortable. OBJECTIVE: Vital Signs: Temperature 98.6 degrees, heart rate 82, respiratory rate 22, blood pressure 145/70, O2 saturation 100% on nonrebreather mask at 80%. General: This is a chronically ill-looking, 77-year-old, female, lying in bed in no acute distress. HEENT: Head is normocephalic, atraumatic. Mucous membranes dry. Neck: No JVD noted. No carotid bruits. No lymphadenopathy. No thyromegaly. Cardiovascular: S1, S2 heard. No murmurs, gallops, or rubs. Regular rate and rhythm. Respiratory: Still minimal crackles noted in both pulmonary bases. The patient is not using any accessory muscles or having work of breathing. Abdomen : Soft, a little bit distended, but nontender to palpation. No signs of peritoneal irritation. The patient has a peritoneal dialysis catheter in place. No surrounding edema. Extremities: No clubbing, cyanosis. Mild edema in both lower extremities. Neurological: Patient alert and oriented x3. Moves 4 extremities. LABORATORY DATA: White cell count 11.21, hemoglobin 8.6, hematocrit 27.0, platelets 70,000. ASSESSMENT AND PLAN: 1. Acute respiratory failure, multifactorial. I think it is multifactorial because of volume overload, anemia that now is better, and pneumonia. The patient continues to require, almost since admission, a high amounts of oxygen. She has been on Optiflow and also nonrebreather mask. Pulmonary is following this patient. Will follow recommendations. 2. Non ST-elevation myocardial infarction. The patient has positive troponins. Dr. Jacinto from Cardiology has been consulted. Plan according to him is to do a left heart catheterization in [facility] whenever she is more stable. Will follow his recommendations. 3. Bilateral pneumonia. The patient continues to be on vancomycin and Zosyn. White cell count is almost back to normal. The patient is not developing any fever. 4. End-stage renal disease, on peritoneal dialysis. Unfortunately, with peritoneal dialysis, we were not able to remove fluid as we were expecting. Dr. Anne has decided to do hemodialysis at this point. Will follow recommendations. 5. Diabetes mellitus type 2. Will continue with sliding scale insulin and Accu- Cheks before meals and also at bedtime. 6. Hypertension. Blood pressure is under control. Will continue with the same management. 7. Anemia of chronic disease. The patient has received 1 unit of blood. Hemoglobin is stable at around 8.6. 8. Disposition. At this point, as we mentioned before, considering her non ST- elevation myocardial infarction, we are planning to send this patient to [facility] when she is more stable. After dialysis is initiated, I think the patient will be requiring less oxygen. Will continue to monitor this patient closely in the intensive care unit. cc: Eric Nunes MD MTDD
[2018-08-02] MEDS ORDERED: SENSORCAINE 0.5%-EPI 1:200,000 ONE (10:48)
[2018-08-02] MEDS ORDERED: NS 250 ML ONE (10:49)
[2018-08-02] MEDS ORDERED: XYLOCAINE 1% ONE (10:49)
[2018-08-02] MEDS ORDERED: DIPRIVAN 1% ONE (10:51)
[2018-08-02] MEDS ORDERED: XYLOCAINE-MPF 2% ONE (10:52)
[2018-08-02] MEDS ORDERED: EPHEDRINE ONE (11:28)
[2018-08-02] MEDS ORDERED: NEO-SYNEPHRINE ONE (11:28)
--- NOTE | 2018-08-02 13:43 | PROGRESS NOTE ---
DATE: 08/02/2018 On rounds today, when I went to see the patient, she was gone to surgery. I have spoken with her who was in her room. He states she is having a dialysis catheter placed to transfer over to hemodialysis instead of peritoneal dialysis. Patient will plan to be transferred to [facility] for a cardiac catheterization when she is stable. We have canceled her EGD. She was actually scheduled as an outpatient before she was admitted for Thursday and I have taken that off the schedule. Recommend they follow back with us as an outpatient once her cardiac issues have been taken care of and, if necessary, we can proceed with EGD if needed. Again, I advised the to call and make an office visit appointment once she is recovered from this current hospitalization. I have discussed this case with Dr. Osborne. Dictated by KEO Navarrete for Dameon Osborne MD cc: KEO Kaufman MD [facility]
[2018-08-02] MEDS: ASPIRIN PO SCH (14:07)
--- NOTE | 2018-08-02 14:31 | OPERATIVE NOTE ---
PROCEDURE DATE: 08/02/2018 PREOPERATIVE DIAGNOSIS: End-stage renal disease. POSTOP DIAGNOSIS: End-stage renal disease. PROCEDURE: Insertion of tunneled hemodialysis catheter with fluoroscopy guidance. SURGEON: Blair King MD. ANESTHESIA: General. ESTIMATED BLOOD LOSS: 25 mL. COMPLICATIONS: None apparent. FINDINGS: Fluoroscopy revealed the catheter tip to be at the superior vena cava near the right atrial junction. TECHNIQUE: She was brought to the operating room and placed supine on the table. General anesthesia was induced. Her right neck and indwelling triple-lumen central venous catheter were prepped and draped in usual sterile fashion. I ran a wire down the mid port of the central venous catheter, cut the stitches that held it in place and removed the catheter over the wire. I then made a counterincision below the right clavicle and tunneled a curved hemodialysis catheter from the lower incision out through the neck incision leaving the cuff in a subcutaneous position. I then ran the sheath and dilator over the wire. The wire and dilator removed. The catheter tip was passed into the sheath. The sheath was removed. Fluoroscopy revealed the tip to be in the superior vena cava. There were no kinks throughout the catheter course. Each port yu back blood easily and was flushed with saline easily. I anchored the catheter hub to the skin with nylon suture. The ports were capped. The exit site was closed with a 3-0 Vicryl subcuticular stitch and the neck incision was closed with a 3-0 Vicryl subcuticular stitch. There were no apparent complications. She was awakened in stable condition and transferred to the recovery room. cc: Blair King MD
[2018-08-02] MEDS: VANCOMYCIN 1 GM/NS 1 GM/250 ML IVPB IV SCH (14:39)
[2018-08-02] MEDS ORDERED: NS 2,000 ML MISC PRN (14:54)
--- NOTE | 2018-08-02 18:18 | CARDIOLOGY PROGRESS NOTE ---
DATE: 08/02/2018 CHIEF COMPLAINT: Shortness of breath, retrosternal pain. SUBJECTIVE: Mrs. Hinojosa feels comfortable this morning. They just placed a dialysis catheter in her right subclavian vein. According to her , she had been complaining of chest pain for over a month intermittently, attributing it to acid reflux or hiatal hernia and drinking pickle juice for that. The patient, at this time, has no discomfort. OBJECTIVE: Vital Signs: Blood pressure is 113/53, temperature 98 degrees, pulse 72, respirations 16. General: She is awake, follows commands, no distress. HEENT: Unremarkable. Chest: Diminished breath sounds at the bases. Cardiovascular: Heart sounds are regular and rhythmic. I do not hear any definite gallop or murmur. Abdomen: Slightly distended. Bowel sounds diminished. Extremities: Show no obvious edema. Pulses diminished. Neurological: She responds appropriately. Moves four extremities. BLOOD WORK: Today, white cell count is 11,210, hemoglobin is 8.6, hematocrit 27%. Sodium is 137, potassium 3.1. BUN is 48, creatinine 6.9. Lipid panel from 08/01/2018, LDL was 73, HDL was 44. IMPRESSION: 1. Patient who presented with acute on chronic kidney failure. The patient has been on peritoneal dialysis for a while. This is a chronic dialysis patient. 2. Pleural effusions. 3. Acute systolic heart failure. Possibly ischemic versus stress-related cardiomyopathy. 4. CT evidence of extensive coronary atherosclerosis. 5. Long-term diabetes mellitus, type 2. 6. History of hyperlipidemia. 7. History of acid reflux. RECOMMENDATIONS: At this time the patient will undergo hemodialysis. Once the patient is stable from the metabolic viewpoint we should probably pursue left heart catheterization to define her coronary anatomy. She is likely to have severe two-vessel disease or more than likely three- vessel disease since all the coronary vessels appear to be calcified on the CT scan of the chest. Will follow her along. cc: Rishi Fernández MD
--- NOTE | 2018-08-02 18:56 | PULMONOLOGY PROGRESS NOTE ---
DATE: 08/02/2018 SUBJECTIVE: The patient has had a Vas-Cath placed. She is somnolent, but arousable. She has no increased work of breathing. She is being initiated on dialysis. OBJECTIVE: Vital Signs: Blood pressure 117/58, heart rate 75, respiratory rate 17, oxygen saturation 99% on 40% face mask. HEENT: Pupils are equal and reactive. Oropharynx is clear. Neck: Supple. Chest: Reveals crackles in the lung bases. Cardiac exam: S1-S2. Abdomen: Soft. Extremities: Reveal trace edema. LABORATORIES: Chest x-ray this morning shows generous cardiac silhouette with some improvement in left greater than right lung bases over the last 3 days. White blood count 11.21, hemoglobin 8.6, platelet count 70,000. Arterial blood gas on non-rebreather pH 7.43, pCO2 of 39, pO2 of 189. IMPRESSION: A 77-year-old with: 1. Aspiration pneumonia. 2. Gastroesophageal reflux with epigastric abdominal pain. 3. Acute hypoxemic respiratory failure. 4. End-stage renal disease, being transitioned to hemodialysis. 5. Diabetes mellitus, with evidence of cardiomyopathy. Patient's chest x-ray has marginally improved over the last 3 to 4 days. She has had a decline in platelet counts. RECOMMENDATIONS: 1. Followup chest x-ray tomorrow. 2. Continue oxygen for hypoxemic respiratory failure. 3. Continue gastric acid suppression. 4. P.o. intake as tolerated. 5. Dialysis trial in progress. cc: Chris Pittman MD
[2018-08-02] MEDS: LIPITOR PO SCH (20:04)
[2018-08-02] MEDS: PATIENT'S OWN MED BOTH EYES SCH (20:45)
[2018-08-03] MEDS: CARAFATE LIQUID PO SCH ×4 (01:21→20:00)
[2018-08-03 04:39] LABS: ALLEN TEST YES; BE -1.8 mmoll (-3.0-3.0); BLOOD TYPE ARTERIAL; HCO3-(ACT) 23.5 mmoll (20.0-26.0); METHB 0.7 % (0.0-1.5); O2HB 96.8 % (95.0-99.0); PCO2(98.6) 38 mmHg (35-45); PO2(98.6) 122 mmHg (60-100); SAMPLE BLOOD; SAO2 99.9 % (95.0-100.0); THB 8.6 g/dL (11.5-17.4); pH(98.6) 7.39 (7.35-7.45)
[2018-08-03 04:40] LABS: MODALITY VENTIMASK
[2018-08-03] MEDS: NITROGLYCERIN TOP SCH ×3 (05:24→17:40)
[2018-08-03] MEDS: HUMALOG SUBQ SCH ×5 (05:25→20:00)
[2018-08-03 05:39] LABS: HEMOGLOBIN 8.2 g/dL (12.0-16.0); MCH 32.5 PG (27-31); MCHC 32.8 g/dL (33-37); MCV 99.2 FL (81-99); MPV 10.8 FL (7.4-10.4); RBC 2.52 XMIL (4.2-5.4); RDW 13.6 % (11.5-14.5); WBC 13.91 X1000 (4.8-10.8)
[2018-08-03 05:49] LABS: ALB/GLOB RATIO 0.7; ALBUMIN 2.5 g/dL (3.5-5.0); CALCIUM 9.9 mg/dL (8.8-10.2); CREATININE 7.9 mg/dL (0.5-0.9); TOTAL BILIRUBIN 0.28 mg/dL (0.20-1.00); TOTAL PROTEIN 6.3 g/dL (6.3-8.3)
[2018-08-03] MEDS ORDERED: VANCOMYCIN 1 GM/NS 1 GM/250 ML IVPB IV SCH (06:00)
[2018-08-03] MEDS ORDERED: TIGHT: 0.2 ML/HR FOR DIALYSIS MISC PRN (06:12)
[2018-08-03] MEDS ORDERED: NS 2,000 ML MISC PRN (06:12)
[2018-08-03] MEDS ORDERED: HEPARIN IV PRN (06:12)
--- NOTE | 2018-08-03 06:38 | Diag Imaging Result Doc PS360 ---
EXAM: CHEST-PORTABLE HISTORY: respiratory failure TECHNIQUE: Portable chest single view COMPARISON: 08/02/2018 FINDINGS: The lungs are well expanded. The heart is not enlarged. There is a right jugular portacatheter. This has been exchanged since the prior study. No pneumothorax. Interstitial markings are slightly less pronounced on the current study. Small left pleural effusion. IMPRESSION: Slight interval improvement. Electronically signed by Sekou Traylor 08/03/2018 6:34 AM
[2018-08-03] MEDS: ZOSYN 2.25 GM in NS 50 ML IV SCH ×2 (08:40→20:02)
[2018-08-03] MEDS: LOPRESSOR PO SCH ×2 (08:41→20:01)
[2018-08-03] MEDS: PROTONIX IV SCH ×2 (08:41→20:01)
[2018-08-03] MEDS: ASPIRIN PO SCH (08:41)
[2018-08-03] MEDS: COSOPT OPHTH SOLN BOTH EYES SCH ×2 (08:43→20:02)
[2018-08-03] MEDS: ALPHAGAN P 0.1% OPHTH SOLN RIGHT EYE SCH ×2 (08:43→20:03)
[2018-08-03] MEDS: LOTREL 5/20 MG PO SCH (08:44)
[2018-08-03] MEDS: QUESTRAN PO SCH ×2 (08:44→20:01)
--- NOTE | 2018-08-03 09:03 | PROGRESS NOTE ---
DATE: 08/03/2018 SUBJECTIVE: The patient is resting comfortably in bed. She is currently on a 50% Ventimask. She is confused. No acute events noted overnight. OBJECTIVE: Vital Signs: Temperature 97.3 degrees, blood pressure 108/53, heart rate 80, respirations 17, O2 saturation is 98% on a Venturi mask. General: This is a chronically ill- appearing, elderly female lying in bed in no acute distress. Heart: S1, S2 normal. Regular rate and rhythm. Lungs: Equal air entry. Diminished breath sounds at the bases. Abdomen: Positive bowel sounds. Soft, nontender, nondistended. Extremities: No edema. No cyanosis. No calf tenderness. Neurologic: The patient is awake, but confused. She is able to move all 4 extremities. Labs: White blood cell count 13, hemoglobin 8.2, hematocrit 25, platelets 240,000. Sodium 138, potassium 4, chloride 96, CO2 22, BUN 60, creatinine 7.9, glucose 179. AST 22, ALT 52, alkaline phosphatase 177. Chest x-ray, interstitial markings are less pronounced. ASSESSMENT AND PLAN: 1. Acute hypoxemic respiratory failure. Multifactorial. The patient is being treated for pneumonia and volume overload. Continue with pulmonary toiletry and the current treatment regimen. 2. Aspiration pneumonia. Continue with antibiotic therapy and bronchodilator therapy. 3. Pulmonary edema. This will be managed during the patient's dialysis sessions. 4. End-stage renal disease. The patient has been transitioned to hemodialysis. Further management as per the errand runner. 5. Anemia. Stable. 6. Leukocytosis. Continue with antibiotic therapy. 7. Metabolic encephalopathy. We will continue to monitor the patient's mental status closely for improvement. 8. Acute systolic congestive heart failure exacerbation. Continue with dialysis as directed by the errand runner for volume management. 9. [id number]-OD-[id number] myocardial infarction. Management as per the cardiology team. 10. Deep vein thrombosis prophylaxis. We will start the patient on heparin. 11. Diabetes mellitus type 2. Continue with sliding scale insulin. cc: Kesha Velasquez MD
--- NOTE | 2018-08-03 09:12 | NEPHROLOGY PROGRESS NOTE ---
DATE: 08/03/2018 TIME SEEN: 0630. SUBJECTIVE: Ms. Hinojosa is resting in bed. She is awake. She is more alert. She does have a 50% Ventimask in place. Denies pain. OBJECTIVE: Her most recent vital signs: Her last temperature 97.3 degrees, blood pressure 110/50, heart rate 81, respirations 16. She is on 50% Ventimask. Last recorded saturation 98%. She has had 520 in, 3550 out with 3.5 L on dialysis. LABS: Sodium 138, potassium 4, chloride 96, CO2 22, BUN 60, creatinine 7.9, glucose 179. Patient's anion gap is 20, calcium is 9.9, albumin is 2.5. White count 13.9, hemoglobin 8.2, hematocrit 25, platelet count 240,000. The patient has ABGs this morning: pH 7.39, CO2 38, PO2 122, bicarb 23.5. This is on 50% Venti mask. Lactate of 1.1. PHYSICAL EXAMINATION: General: This is a 77-year-old white female resting quietly in bed. She appears chronically ill, no acute distress. Skin: Warm and dry. HEENT: Normocephalic, atraumatic. Conjunctiva is pale pink. She has KAYLIE. Mucous membranes are dry. Neck: Supple. Trachea midline. No evidence of JVD. Cardiovascular: Regular rate and rhythm. No murmur or gallop appreciated. Lungs: Diminished bilateral. She remains on O2 support. Abdomen: Large, round, soft, nontender. Positive bowel sounds. PD catheter remains dry and intact without redness or drainage. Genitourinary: Joel catheter is in place. Minimal urine out with dialysis assist. Extremities: No edema. No clubbing or cyanosis. They are tender to touch. Integumentary: Patient has tunneled dialysis catheter to the right chest wall going to the right IJ. Neurological: As mentioned above. ASSESSMENT AND PLAN: 1. Chronic kidney disease stage 5D. The patient now has a dialysis tunneled catheter. She dialyzed yesterday. She tolerated this well. We will plan for dialysis again today. She is to dialyze on a 2K bath. She is to dialyze for 3.5 hours. We will attempt to pull 3 L of ultrafiltration. 2. Electrolytes and acid-base balance. These remain acceptable with correction on dialysis. 3. Anemia. This is low but acceptable. 4. Fluid volume overload. The patient has no obvious neck vein distention or peripheral edema. She does have a chest x-ray that shows continued pulmonary edema, again with support on dialysis.. 5. Pneumonia. She is on renal-dosed antibiotics. I would like to thank you for allowing us to follow with this patient. Much better after HD today. Repeat tomorrow. rg Dictated by KEO Nino for Jostin Anne MD Face to face encounter, data reviewed, discussed with Shae Byrnes on 08/03/18. I agree with the above assessment and plan of care. rg cc: KEO Nino MD [facility]
[2018-08-03 10:47] LABS: HEPATITIS PROFILE ACUTE SEE COMMENTS
[2018-08-03] MEDS: HEPARIN SUBQ SCH ×3 (13:35→20:01)
--- NOTE | 2018-08-03 15:00 | PROGRESS NOTE ---
DATE: 08/03/2018 SUBJECTIVE: Patient continues without dyspnea on supplemental oxygen per nasal cannula. There has been no chest pain. OBJECTIVE: Vital Signs: Blood pressure 122/56, heart rate 84, oxygen saturation 97%. Neck: Jugular venous distention is not apparent. Chest: Clear to auscultation. Cardiac exam: Reveals a regular rate and rhythm without appreciable murmur or gallop. Extremities: Without edema. LABORATORY DATA: Includes a white blood cell count 13.91, hematocrit 25.0, hemoglobin 8.2. Sodium 138, potassium 4.0, chloride 96, carbon dioxide 22, BUN 60, creatinine 7.9, glucose 179. IMPRESSIONS: 1. Acute systolic heart failure with severe cardiomyopathy. Patient has improved with volume removal via dialysis. 2. Acute coronary syndrome/unstable angina probably not due to an acute thrombotic event but rather coronary instability produced by stress of volume overload and anemia, as well as possible pneumonia. In essence she has myocardial demand/blood flow mismatch. 3. End-stage renal disease requiring chronic dialysis, previously peritoneal and currently hemodialysis. 4. Anemia. 5. Type 2 diabetes mellitus. 6. Hypertension. RECOMMENDATIONS: 1. Continue efforts to remove volume via dialysis. 2. Repeat limited echocardiography to reassess left ventricular function after improvement in stressors such is volume overload and anemia. 3. Ultimately may need to consider cardiac catheterization/coronary angiography for definitive evaluation of her cardiomyopathy. cc: Floyd Jacinto MD
[2018-08-03] MEDS ORDERED: VANCOMYCIN 1 GM/NS 1 GM/250 ML IVPB IV ONE (17:00)
--- NOTE | 2018-08-03 17:29 | ECHO REPORT ---
ORDER DATE: 08/03/2018 INTERPRETING PHYSICIAN: Dr. Fernández REQUESTING PHYSICIAN: CLINICAL INDICATIONS: This is a 77-year-old female with chronic renal failure with worsening on peritoneal dialysis and hemodialysis and possibly [id number] myocardial infarction. Limited echocardiographic study with injection of Definity to optimize visualization of endocardium. M-MODE MEASUREMENTS: Right ventricle: cm. Left ventricle end diastole: 4.5 cm. Left ventricle end systole: 3.3 cm. Posterior wall: 1.2 cm. Interventricular septum: 1.3 cm. Left atrium: cm. Aortic root: cm. SUMMARY OF 2-DIMENSIONAL IMAGIN. The left ventricular chamber appears to be enlarged. 2. The left ventricular systolic function is moderately impaired. Ejection fraction is estimated to be somewhere in the neighborhood of 30% to 35% with wall motion abnormality involving the mid to apical septum, the distal inferior wall, the distal anterior wall, and the distal lateral wall. The mid anteroseptal segment also appears to be involved, and this raises concern for LAD lesion after first septal gate clerk branch. 3. The mitral annulus shows moderate calcification. 4. There is no pericardial effusion. 5. Right ventricle is not dilated. 6. The aortic valve cusps seem to open normally. CONCLUSIONS: In summary, this echocardiographic study shows moderately impaired left ventricular systolic function, ejection fraction probably somewhere in the neighborhood of 35%, at best 37%, with wall motion abnormality involving the mid anteroseptal segment, the distal anterior wall, the mid to distal interventricular septum, and the distal inferior wall. That would suggest disease of LAD in a location right after the first septal branch. Multivessel disease is also likely. Clinical correlation is recommended. cc: MD Floyd Dick MD
[2018-08-03] MEDS: LIPITOR PO SCH (20:01)
[2018-08-03] MEDS: PATIENT'S OWN MED BOTH EYES SCH (20:17)
--- NOTE | 2018-08-03 22:01 | PULMONOLOGY PROGRESS NOTE ---
DATE: 08/03/2018 SUBJECTIVE: The patient is awake, alert and conversant. She appears to be slightly confused. The reports she coughed up a significant amount of sputum yesterday, but none this morning. She reports she is tolerating some p.o. intake. OBJECTIVE: Vital Signs: The patient has been afebrile for the last 24 hours. Oxygen requirements are decreasing. BP 126/67, heart rate 90, respiratory rate 18, oxygen saturation 97%. HEENT: Pupils are equal and reactive. Oropharynx is clear. Neck: Supple. Chest: Reveals crackles in both lung bases. Cardiac: S1, S2. Abdomen: Soft and without hepatosplenomegaly. LABORATORIES: Chest x-ray reveals some decrease in basilar infiltrates. White blood count 13.9, hemoglobin 8.2, platelet 240,000. Arterial blood gas: PH 7.39, pCO2 of 38, PO2 of 122. No new microbiology data. IMPRESSION: 1. A 77-year-old with aspiration pneumonia, possible non-Q-wave myocardial infarction, gastroesophageal reflux, acute hypoxemic respiratory failure, cardiomyopathy, ischemic versus nonischemic. 2. End-stage renal disease, now on hemodialysis. RECOMMENDATIONS: 1. Continue to wean oxygen as tolerated. 2. Continue gastric acid suppression. 3. Consider cardiac catheterization when she clinically improves as outlined per Cardiology notes. 4. P.o. intake as tolerated. 5. Overall prognosis is guarded. cc: Chris Pittman MD
[2018-08-04] MEDS: NITROGLYCERIN TOP SCH ×4 (00:18→17:39)
[2018-08-04] MEDS: HUMALOG SUBQ SCH ×6 (00:18→21:40)
[2018-08-04] MEDS: CARAFATE LIQUID PO SCH ×4 (01:41→20:59)
[2018-08-04] MEDS: MORPHINE IV PRN (03:32)
[2018-08-04 04:51] LABS: ALLEN TEST YES; BE -0.1 mmoll (-3.0-3.0); BLOOD TYPE ARTERIAL; HCO3-(ACT) 24.9 mmoll (20.0-26.0); METHB 0.7 % (0.0-1.5); O2(CT) 12.2 mL/dL (15.0-23.0); O2HB 96.2 % (95.0-99.0); PCO2(98.6) 31 mmHg (35-45); PO2(98.6) 90 mmHg (60-100); SAMPLE BLOOD; SAO2 98.5 % (95.0-100.0); THB 8.9 g/dL (11.5-17.4); pH(98.6) 7.48 (7.35-7.45)
[2018-08-04 04:53] LABS: MODALITY ROOM AIR
[2018-08-04 06:07] LABS: HEMATOCRIT 25.3 % (37.0-47.0); HEMOGLOBIN 8.4 g/dL (12.0-16.0); MCH 32.7 PG (27-31); MCHC 33.2 g/dL (33-37); MCV 98.4 FL (81-99); MPV 10.5 FL (7.4-10.4); RBC 2.57 XMIL (4.2-5.4); RDW 13.4 % (11.5-14.5); WBC 13.46 X1000 (4.8-10.8)
[2018-08-04 06:23] LABS: ALB/GLOB RATIO 0.9; CALCIUM 9.6 mg/dL (8.8-10.2); CREATININE 4.5 mg/dL (0.5-0.9); POTASSIUM 3.4 mmol/L (3.5-5.1); TOTAL BILIRUBIN 0.33 mg/dL (0.20-1.00); TOTAL PROTEIN 6.3 g/dL (6.3-8.3)
[2018-08-04] MEDS ORDERED: HEPARIN IV PRN (06:26)
[2018-08-04] MEDS ORDERED: TIGHT: 0.2 ML/HR FOR DIALYSIS MISC PRN (06:26)
[2018-08-04] MEDS ORDERED: NS 2,000 ML MISC PRN (06:26)
--- NOTE | 2018-08-04 07:39 | Diag Imaging Result Doc PS360 ---
CHEST-PORTABLE - 08/04/2018 INDICATION: respiratory failure COMPARISON: 08/03/2018 FINDINGS: Stable right-sided dialysis catheter in good position. There is some faint linear atelectasis in the lateral left lung base. There is stable consolidation or atelectasis of the left lower lobe. No new infiltrates. No pulmonary edema. IMPRESSION: No significant change from prior. Electronically signed by Eddie Mcfarland 08/04/2018 7:37 AM
[2018-08-04] MEDS: HEPARIN SUBQ SCH (07:59)
[2018-08-04] MEDS: PROTONIX IV SCH ×2 (07:59→21:40)
[2018-08-04] MEDS: ALPHAGAN P 0.1% OPHTH SOLN RIGHT EYE SCH ×2 (08:00→22:33)
[2018-08-04] MEDS: LOPRESSOR PO SCH ×2 (08:00→21:41)
[2018-08-04] MEDS: COSOPT OPHTH SOLN BOTH EYES SCH ×2 (08:00→22:33)
[2018-08-04] MEDS: ASPIRIN PO SCH (08:00)
[2018-08-04] MEDS: QUESTRAN PO SCH ×2 (08:00→22:32)
[2018-08-04] MEDS: LOTREL 5/20 MG PO SCH (08:00)
[2018-08-04] MEDS: ZOSYN 2.25 GM in NS 50 ML IV SCH ×3 (08:10→21:40)
--- NOTE | 2018-08-04 11:19 | NEPHROLOGY PROGRESS NOTE ---
DATE: 08/04/2018 TIME SEEN: 0645 SUBJECTIVE: Ms. Hinojosa is resting in bed. She is very pleasant today, though confused. She had received morphine earlier this morning at 3 a.m., denies any discomfort. VITAL SIGNS: Her most recent vital signs are temperature 98.6 degrees, blood pressure 141/77, heart rate 96, respirations 20. She is on room air. Last recorded saturation 95%. She has had 1210 in, 2.3 L removed on dialysis yesterday LABORATORY DATA: Sodium 138, potassium 3.4, chloride 98, CO2 22, BUN 36, creatinine 4.5, glucose 186, anion gap 18, calcium 9.6, albumin 3. White count 13.46, hemoglobin 8.4, hematocrit 25.3, platelet count 268,000. PHYSICAL EXAMINATION: General: This is a 77-year-old white female resting quietly in bed, in no acute distress though she appears chronically ill. Skin: Warm and dry. HEENT : Normocephalic, atraumatic. Conjunctivae pale pink. She has KAYLIE. Mucous membranes dry. Neck : Supple. Trachea midline. She has no JVD. Cardiovascular: Regular rate and rhythm. She is slightly tachycardic on the monitor. No murmur or gallop appreciated. Lungs: Clear to auscultation bilaterally. Equal excursion on room air. Abdomen: Soft, nontender. Positive bowel sounds. She has PD catheter intact without redness or drainage. Genitourinary: Not inspected. Minimal urine out with dialysis assist. Extremities: No edema. No clubbing or cyanosis. Neurological: As mentioned above. ASSESSMENT AND PLAN: 1. Chronic kidney disease stage 5D. The patient is due for her hemodialysis treatment today. Will place her on a 3K bath. She is to dialyze for 3-1/2 hours. We will attempt to pull 3 L of ultrafiltration. 2. Electrolytes and acid-base balance with correction on dialysis. 3. Anemia. This remains low, but stable with no indications for intervention today. 4. Fluid volume overload. The patient is now on room air since having started on hemodialysis in the last 48 hours. Her saturations remain well at 95%. Chest x-ray this morning shows no significant change from prior, continues with atelectasis to the left lobe versus slight interval improvement from yesterday. This is followed by Dr. Pittman and primary care. I would like to thank you for allowing us to follow with this patient. Dictated by KEO Nino for Jostin Anne MD Face to face encounter, data reviewed, discussed with Shae Byrnes on 08/04/18. I agree with the above assessment and plan of care. cc: KEO Nino MD [facility]
--- NOTE | 2018-08-04 12:26 | PULMONOLOGY PROGRESS NOTE ---
DATE: 08/04/2018 SUBJECTIVE: The patient is currently on dialysis. She is awake and alert. She responds to questions, but in a delayed fashion. She does not look directly at the examiner when she speaks. OBJECTIVE: Vital Signs: The patient is afebrile, blood pressure 137/65, heart rate 96, respiratory rate 20, oxygen saturation 94% on 2 L per nasal cannula. HEENT: Pupils are equal and reactive. Oropharynx appears clear. Neck: Supple. Chest: Reveals crackles in the lung bases. Cardiac: S1, S2. Abdomen: Soft without hepatosplenomegaly. Extremities: Without edema. DIAGNOSTIC STUDIES: Chest x-ray reveals consolidation at the left lung base. White blood count 13.46, hemoglobin 8.4, platelet count 268,000. Sodium 138, potassium 3.4, chloride 98, bicarbonate 22, BUN 36, creatinine 4.5, glucose 196. Arterial blood gas: A pH 7.48, pCO2 of 31, PO2 of 90. IMPRESSION: 1. A 77-year-old with aspiration pneumonia. 2. Possible non-Q-wave myocardial infarction with wall motion abnormalities on echocardiogram. 3. Gastroesophageal reflux. 4. Acute hypoxemic respiratory failure. 5. Cardiomyopathy, ischemic versus nonischemic. 6. End-stage renal disease, on hemodialysis. 7. Confusion. RECOMMENDATIONS: 1. Complete course of antibiotics. 2. Continue bronchial hygiene. 3. Continue gastric acid suppression. 4. Possible cardiac workup to be determined as she clinically improves. PROGNOSIS: Overall guarded. cc: Chris Pittman MD [facility]
--- NOTE | 2018-08-04 14:18 | Diag Imaging Result Doc PS360 ---
EXAM: CT HEAD W/O CONTRAST - 08/04/2018 HISTORY: encephalopathy TECHNIQUE: CT head without contrast COMPARISON: None. FINDINGS: There are geographic low-density areas in the bilateral parietal lobes. These are suspicious for recent (acute or subacute) infarcts. These do not have the typical more-occipital locations of posterior reversible encephalopathy syndrome. There are atherosclerotic calcifications noted at the base the brain. There is no evidence of intracranial hemorrhage or midline shift. There is paranasal sinus disease noted at the sphenoid sinus. IMPRESSION: Geographic low-density areas in bilateral parietal lobes. These are suspicious for recent (acute or subacute) infarcts. No evidence of hemorrhage. This report was discussed with Ron on 08/04/2018 at 2:12 PM and was readback. This exam was performed using automated exposure control, adjustment of mA or kV according to patient size, and/or use of iterative reconstruction technique. Electronically signed by Fuad Williamson 08/04/2018 2:16 PM
--- NOTE | 2018-08-04 16:00 | PROGRESS NOTE ---
DATE: 08/04/2018 SUBJECTIVE: Patient continues awake and responsive. However, she seems to respond only in very brief answers and does not engage in much conversation. She seems mildly confused. She denies shortness of breath or chest discomfort. OBJECTIVE: Vital signs: Blood pressure 135/70, heart rate 105, oxygen saturation 97%. Neck: There is no significant jugular venous distention. Chest: Clear to auscultation bilaterally. Cardiac Exam: Reveals a regular rate and rhythm without appreciable murmur or gallop. Extremities: Without edema. LABORATORY DATA: Includes white blood cell count 13.46, hematocrit 25.3, hemoglobin 8.4, platelet count 268,000. Sodium 138, potassium 3.4, chloride 98, carbon dioxide 22, BUN 36, creatinine 4.5. Repeat echocardiography reports left ventricular ejection fraction improved to 35%. IMPRESSIONS: 1. Acute systolic heart failure and cardiomyopathy. Patient has improved with volume removal via dialysis. 2. Acute coronary syndrome, probably due to supply demand mismatch with patient under considerable amount of cardiac stress related to volume overload, pneumonia, anemia. This appears to have stabilized. 3. Encephalopathy. Etiology not clear. 4. End-stage renal disease, requiring chronic dialysis. 5. Anemia. 6. Type 2 diabetes mellitus. 7. Hypertension. RECOMMENDATIONS: 1. Agree with neurology evaluation regarding patient's encephalopathy. 2. Continue conservative cardiovascular management for now. 3. Ultimately patient is to be considered for cardiac catheterization/coronary angiography for definitive evaluation of her cardiomyopathy. This certainly needs wait until after she has had further sustained clinical improvement. cc: Floyd Jacinto MD
--- NOTE | 2018-08-04 16:30 | CONSULTATION ---
DATE OF CONSULTATION: 08/04/2018 NEUROLOGY CONSULT: HISTORY OF PRESENT ILLNESS: Ms. Hinojosa has noncontrast CT evidence of bilateral parietal lucency consistent with recent infarction. History from the patient is not valid. I have reviewed the hospital record. at the bedside reports noticing forgetfulness in recent months. There is no history of prior stroke, serious head injury, seizure, other neurologic event. She came to the hospital with chest pain. There was evidence of pneumonia and acute hypoxemic respiratory failure. She has history of end-stage renal disease managed with dialysis. She has hypertension, dyslipidemia, diabetes mellitus, ischemic heart disease, and cardiomyopathy. On admission, she was described as awake and alert, oriented, moving all extremities with no focal neurologic findings. Approximately 2 days ago, noticed she was less attentive and seemed to have trouble finding words. He did not notice focal weakness, but she seemed to him to be moving less and maybe weak all over. Noncontrast CT today shows bilateral parietal lucencies. We do not have previous scan available in this system. reports she may have had MRI scan a few months ago as an outpatient at another facility, and I will check on that. Lab shows blood sugars a few times in the 300s earlier, but 100s to 200s for the last few days. BUN has come down from 60 yesterday to 36 today. Systolic blood pressures have stabilized mostly 110s to 150s with infrequent systolic blood pressures 80s and 90s. Her home medicine list does not include anything that would likely cause encephalopathy. reports no use of sedatives, benzodiazepines, hypnotics. She received a dose of morphine 2 mg 3:30 this morning, only dose in the last 3 days. reports baseline poor vision. PHYSICAL EXAMINATION: On exam, she is supine, awake, alert, attentive. She answered questions, but had trouble finding her words. She did not identify this as a hospital. She did not name the President. She followed simple commands, but made mistakes following commands requiring right/left distinction and digit distinction. She named some objects but had trouble naming parts of objects. She did not perform bedside repeating tasks. I did not test reading or handwriting. Head is unremarkable. Neck is supple without meningismus. She consistently counts fingers correctly in her right visual field and consistently misses in the left visual field. Facial motility is a little bit diminished bilaterally. Tongue is midline. She can hear. She used her right arm purposefully and consistently. I did not see her use her left arm purposefully , but she did move her left arm spontaneously. She identified pinprick more briskly over the right limbs than the left. She answered correctly with proprioception testing at the great toe MTP joint bilaterally. Plantar response is silent bilaterally. She demonstrated good power in the legs and in the right arm. Findings were inconsistent in the left arm on power testing with apparent inconsistent attention. She did well with right [id number]. She did not perform left finger-to- nose. I did not test her gait. Reflexes are absent at the ankles, 1+ bilaterally at the wrists. IMPRESSION: 1. Clinically, I find probable dysphasia, left hemianopia, possibly left-sided neglect. Findings are consistent with the bilateral hemispheric infarctions as noted on CT. Her history from sounds like event occurred approximately 2 days ago. I will check on outside brain imaging, if available, to see if we can be more certain that this is all new. Posterior reversible encephalopathy syndrome would be a consideration in light of her hypertension and renal failure. Brain MRI might help sort this out. By report, she is better today than yesterday, so I do not think that is urgent. 2. Clinical findings of peripheral neuropathy, likely diabetic neuropathy. I do not think that needs attention right now. 3. Heart disease with workup in progress. 4. Pneumonia, responding to treatment. 5. History suggests at least mild cognitive impairment at baseline. That would predispose her to encephalopathy with any toxic or metabolic disturbance. I do not have any urgent suggestion. I will check on the outside brain imaging , if available. We will consider brain MRI here when practical. In light of her renal failure, I do not think she is a candidate for CT angiogram of the cervical and cranial vessels. We can get carotid ultrasound when practical. Echocardiogram showed evidence of cardiomyopathy, but not definite thrombus or other source of embolus. From ischemic stroke standpoint, we need to manage blood pressure cautiously, but, at this time, presumed >48 hours since infarct with stable and improving course, ischemic heart risk greatly outweighs any potential benefit we might see with hypertension from stroke management standpoint, and I think blood pressure can be treated as needed. Thanks for asking Neurology to see Ms. Hinojosa. cc: MD JESSIKA Salazar III
--- NOTE | 2018-08-04 16:42 | Diag Imaging Result Doc PS360 ---
EXAM: MRI BRAIN W/O CONTRAST 08/04/2018 HISTORY: acute cva TECHNIQUE: T1, T2, FLAIR, DWI axial, sagittal FLAIR and coronal gradient echo. COMMENT: There is restricted diffusion bilaterally in the posterior parietal and temporal lobes with relative sparing of the occipital cortex there is no evidence of mass effect, bleed, or abnormal extra-axial fluid collection. There are extensive punctate and patchy areas of increased T2-weighted signal intensity in the white matter both hemispheres consistent with chronic microvascular disease. There is no evidence of hydrocephalus. No previous MRI studies are available for comparison. The CT scan performed today at 1355 demonstrates similar findings. IMPRESSION: Fairly symmetrical restriction of diffusion with cortical and subcortical edema in the posterior hemispheres bilaterally sparing the occipital cortex and anterior temporal lobes. This suggests an acute or subacute infarction. This would be hard to explain with a single vascular lesion. More likely it is related to a systemic insult such as hypotension or prolonged hypoglycemia. The possibility of the PRES syndrome cannot be entirely excluded although this is not usually associated with diffusion restriction. The findings were discussed with Kesha Velasquez MD at 08/04/2018 4:39 PM. Electronically signed by Peter Lares 08/04/2018 4:40 PM
[2018-08-04] MEDS: LIPITOR PO SCH (21:41)
[2018-08-04] MEDS: PATIENT'S OWN MED BOTH EYES SCH (21:42)
[2018-08-05] MEDS: CARAFATE LIQUID PO SCH ×4 (01:14→20:02)
[2018-08-05] MEDS: NITROGLYCERIN TOP SCH ×4 (01:14→18:02)
[2018-08-05] MEDS: HUMALOG SUBQ SCH ×6 (01:14→20:05)
--- NOTE | 2018-08-05 03:42 | PROGRESS NOTE ---
DATE: 08/04/2018 SUBJECTIVE: The patient is resting comfortably in bed. She is awake, but remains somewhat confused. OBJECTIVE: Vital Signs: Temperature 98.6 degrees, blood pressure 119/70, heart rate 102, respirations 17, O2 saturation 97% on room air. General: This is a chronically ill-appearing elderly female, lying in bed in no acute distress. Heart: S1, S2 normal. Tachycardic. Lungs: Equal air entry bilaterally. No wheezing. No rales. No rhonchi. Abdomen: Positive bowel sounds. Soft, nontender, nondistended. Extremities: No edema, no cyanosis. Neurologic: The patient is awake and alert; however, she is confused. She is able to move all 4 extremities. DIAGNOSTIC STUDIES: White blood cell count 14, hemoglobin 8.4, hematocrit 25, platelets 268,000. Sodium 138, potassium 3.4, chloride 98, CO2 of 22, BUN 36, creatinine 4.5, glucose 186. AST 13, ALT 38, alkaline phosphatase 164. Ammonia 47. MRI of the brain show possible new or subacute infarction involving the posterior hemispheres bilaterally, but sparing the occipital cortex and anterior temporal lobes. ASSESSMENT AND PLAN: 1. Acute cerebrovascular accident (CVA). The patient has been assessed by the neurologist. We will continue on aspirin and Lipitor. We will also order a carotid ultrasound. We will consult Physical Therapy and Occupational Therapy. 2. Aspiration pneumonia. Continue with antibiotic and bronchodilator therapy. 3. Pulmonary edema. Improved. The patient will be dialyzed today. 4. End-stage renal disease. Management as per Dr. Anne. 5. Leukocytosis: Unchanged. Continue with antibiotic therapy. 6. Acute systolic congestive heart failure (CHF). Improved. 7. Non ST-elevation myocardial infarction (UT). Cardiology is following. The patient will likely be transferred to [facility] for further intervention. 8. Deep vein thrombosis (DVT) prophylaxis. Given the patient's bilateral infarcts, we will hold the heparin. Continue with SCDs for now. 9. Diabetes mellitus, type 2. Continue with sliding scale insulin. 10. Anemia. Stable. cc: Kesha Velasquez MD [facility]
[2018-08-05 04:56] LABS: HEMATOCRIT 29.2 % (37.0-47.0); HEMOGLOBIN 9.6 g/dL (12.0-16.0); MCH 32.2 PG (27-31); MCHC 32.9 g/dL (33-37); MPV 9.9 FL (7.4-10.4); RBC 2.98 XMIL (4.2-5.4); RDW 13.5 % (11.5-14.5); WBC 19.51 X1000 (4.8-10.8)
[2018-08-05 05:26] LABS: ALB/GLOB RATIO 0.9; ALBUMIN 3.6 g/dL (3.5-5.0); CALCIUM 10.9 mg/dL (8.8-10.2); CREATININE 3.6 mg/dL (0.5-0.9); POTASSIUM 3.5 mmol/L (3.5-5.1); TOTAL BILIRUBIN 0.38 mg/dL (0.20-1.00); TOTAL PROTEIN 7.4 g/dL (6.3-8.3)
--- NOTE | 2018-08-05 06:25 | Diag Imaging Result Doc PS360 ---
CHEST-PORTABLE - 08/05/2018 INDICATION: respiratory failure COMPARISON: 09/01/2018 FINDINGS: It is likely to be artifact, but a trace pneumothorax at the right lung base cannot be excluded. No infiltrates. Heart size is normal. Stable right dialysis catheter in good position. IMPRESSION: Artifact versus trace pneumothorax at the right lung base. Chest CT is recommended. Electronically signed by Eddie Mcfarland 08/05/2018 6:23 AM
[2018-08-05] MEDS: SODIUM CHLORIDE 0.9% INJ SCH (08:35)
[2018-08-05] MEDS: PROTONIX IV SCH ×2 (08:35→20:06)
[2018-08-05] MEDS: LOTREL 5/20 MG PO SCH (08:35)
[2018-08-05] MEDS: COSOPT OPHTH SOLN BOTH EYES SCH ×2 (08:36→20:03)
[2018-08-05] MEDS: LOPRESSOR PO SCH ×2 (08:36→20:06)
[2018-08-05] MEDS: ASPIRIN PO SCH (08:36)
[2018-08-05] MEDS: QUESTRAN PO SCH ×2 (08:36→20:04)
[2018-08-05] MEDS: ALPHAGAN P 0.1% OPHTH SOLN RIGHT EYE SCH ×2 (08:36→20:00)
[2018-08-05] MEDS: ZOSYN 2.25 GM in NS 50 ML IV SCH ×2 (08:36→20:02)
--- NOTE | 2018-08-05 10:15 | PROGRESS NOTE ---
DATE: 08/05/2018 SUBJECTIVE: The patient is awake and alert. She is oriented to person and place. OBJECTIVE: Vital Signs: Temperature 99 degrees, blood pressure 136/91, heart rate 104, respirations 19, O2 saturation 96% on room air. General: This is an elderly female lying in bed, in no acute distress. Heart: S1 and S2 normal. Tachycardic. Lungs: Clear to auscultation bilaterally. No wheezing. No rales. No rhonchi. Abdomen: Positive bowel sounds. Soft, nontender, nondistended. Extremities: No edema. No cyanosis. Neurologic: The patient is alert and oriented x3. LABORATORY DATA: White blood cell count 19, hemoglobin 9.6, hematocrit 29, platelets 304,000. Sodium 141, potassium 3.5, chloride 99, CO2 30, BUN 37, creatinine 3.6, glucose 155, AST 17, ALT 33, alkaline phosphatase 171. DIAGNOSTIC STUDIES: Chest x-ray shows no infiltrates. ASSESSMENT AND PLAN: 1. Acute cerebrovascular accident. Continue with aspirin and Lipitor. Will await the carotid ultrasound report. Continue with physical therapy and occupational therapy. 2. Aspiration pneumonia. Continue on the current antibiotic therapy. 3. Non-Q-wave myocardial infarction. Management as per the Cardiology team. 4. End-stage renal disease. Management as per Nephrology. 5. Pulmonary edema. Resolved. 6. Diabetes mellitus type 2. Continue on sliding scale insulin. 7. Anemia. Improved. Will continue to monitor the hemoglobin and hematocrit closely. 8. Leukocytosis. Worse today. Will order blood cultures. 9. Gastrointestinal prophylaxis. Continue on Protonix. 10. Deep vein thrombosis prophylaxis. Continue with sequential compression devices. cc: Kesha Velasquez MD [facility]
--- NOTE | 2018-08-05 11:12 | PULMONOLOGY PROGRESS NOTE ---
DATE: 08/05/2018 SUBJECTIVE: The patient is more awake, alert, and conversant. She is making jokes. She does turn toward the practitioner when requested, with a minimal delay when compared to yesterday. OBJECTIVE: Vital Signs: Maximum temperature in the last 24 hours 99.6 degrees. Blood pressure 123/64, heart rate 96, respiratory rate 17, oxygen saturation 97%, now on room air. HEENT: Pupils are equal and reactive. Oropharynx appears clear. Neck: Supple. Chest: Good air entry bilaterally without wheezing, rales, or tactile fremitus. Cardiac: S1, S2. Abdomen: Soft without hepatosplenomegaly. Extremities: Without edema. DIAGNOSTIC STUDIES: Chest x-ray revealed clearing of both lung bases. There is some question of possible trace pneumothorax at the right base. MRI results have been reviewed. LABORATORY DATA: White blood count 19.5, hemoglobin 9.6, platelet count 304,000. Chemistry: Sodium 142, potassium 3.5, chloride 99, bicarbonate 30, BUN 37, creatinine 3.6. No arterial blood gas today. IMPRESSION: A 77-year-old with: 1. Aspiration pneumonia, which is clearing. 2. Possible non-Q-wave myocardial infarction with wall motion abnormalities on echocardiogram. 3. Acute hypoxemic respiratory failure, which has resolved. 4. Gastroesophageal reflux. 5. End-stage renal disease. The patient was on peritoneal dialysis, but now on hemodialysis. 6. 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 RECOMMENDATIONS: 1. Consider weaning/discontinue antibiotics in the next 24-48 hours. 2. Initiate physical therapy. 3. Continue bronchial hygiene. 4. Follow up MRI results as per Neurology's recommendations. 5. Further recommendations pending hospital course. cc: Chris Pittman MD
--- NOTE | 2018-08-05 11:14 | Diag Imaging Result Doc PS360 ---
CHEST-PORTABLE - 08/05/2018 10:59 AM INDICATION: ? expanding pneumothorax COMPARISON: 5:23 AM FINDINGS: There is no evidence of pneumothorax. There is no acute disease. IMPRESSION: Negative exam. Electronically signed by Eddie Mcfarland 08/05/2018 11:12 AM
--- NOTE | 2018-08-05 11:56 | NEPHROLOGY PROGRESS NOTE ---
DATE: 08/05/2018 TIME SEEN: 06. SUBJECTIVE: Ms. Hinojosa is resting quietly in bed. She has no complaints. OBJECTIVE: Her most recent vital signs: Her last temperature 99.4 degrees, blood pressure 127/66 heart rate 98, respirations 17, she is on room air, last recorded saturation is 97%. Intake and output: She has had 790 in. She has had 30,001 mL out with 3 L on dialysis. Diagnostic Studies: Her sodium is 142, potassium 3.5, chloride 99, CO2 of 30, BUN 37, creatinine 3.6, glucose 155, anion gap of 13, calcium is 10.9, albumin is 3.6. White count 19.51, hemoglobin 9.6, hematocrit 29.2, with a platelet count of 304,000. The patient has blood cultures drawn this a.m. that are currently pending. The patient also had a brain MRI yesterday late afternoon. There are some suggestions of acute or subacute infarction bilateral with a systemic insult, possibly related to hypotension or prolonged hypoglycemia. Primary care physician is aware. Neurology has been consulted. PHYSICAL EXAMINATION: General: This is a 77-year-old white female, resting quietly in bed. Head of the bed is elevated. She is in no acute distress. Skin: Warm and dry. HEENT: Normocephalic, atraumatic. Conjunctivae are pale. She has KAYLIE. Mucous membranes are dry. Neck: Supple. Trachea midline. She does have trace JVD. Cardiovascular: She has regular rate and rhythm. She is without murmur or gallop, though tachycardic on the monitor. Abdomen: Slightly distended, soft, nontender. Positive bowel sounds. Peritoneal dialysis catheter remains dry and intact. Genitourinary: Not inspected. Patient has assistance with dialysis. Extremities: Have no edema. No clubbing or cyanosis. She is able to move all 4 extremities well. Integumentary: She has a tunnel dialysis catheter to the right chest wall. ASSESSMENT AND PLAN: 1. Chronic kidney disease, stage 5D. The patient had dialysis for 2 days straight. We will hold today with plans for dialysis tomorrow. 2. Electrolytes and acid-base balance. Again, these are fairly stable with correction on dialysis. 3. Anemia. This is low. At this time, we will continue to monitor. No indications for intervention. 4. Fluid volume overload. Patient has been resuscitated with hemodialysis. She has tolerated this well. No indications for intervention today. She is currently on room air. She is lying flat. Again, this is followed by Dr. Pittman and the primary care team. I would like to thank you for allowing us to follow with this patient. Dictated by KEO Nino for Jostin Anne MD Face to face encounter, data reviewed, discussed with Shae Byrnes on 08/05/18. I agree with the above assessment and plan of care. cc: KEO Nino MD [facility]
--- NOTE | 2018-08-05 12:26 | PROGRESS NOTE ---
DATE: 08/05/2018 SUBJECTIVE: Ms. Hinojosa is not had any further neurologic event. Carotid ultrasound is ordered. She has been afebrile. Systolic blood pressures have been stable 110s to 150s in the last 24 hours. Her MRI showed findings similar to the CT and did show restricted diffusion in the parietal lesions bilaterally. OBJECTIVE: On exam now, Ms. Hinojosa is awake, alert, attentive. Her speech is not significantly dysarthric. She did a little better with bedside tests of naming today than yesterday, but still made some mistakes. She has relative left hemianopia, but did count fingers sometimes in the left visual field. She is moving her left arm purposefully but not as well as the right. IMPRESSION: 1. Persistent but improved left hemiparesis and left hemianopia. 2. Persistent but improved dysphasia. She has clinical and imaging evidence of ischemic infarction bilaterally. Explanation for this is not certain. We do not have definite evidence of cardiac source of embolus. I think we need to continue treating blood pressure as necessary, follow clinically, await carotid report. Thanks for asking Neurology to see Ms. Hinojosa. I discussed situation with daughter at the bedside today. cc: Antwan Ridley III, MD [facility]
--- NOTE | 2018-08-05 14:25 | PROGRESS NOTE ---
DATE: 08/05/2018 SUBJECTIVE: The patient is more awake and responsive. She seems to be much more appropriate today. She denies shortness of breath or chest discomfort. OBJECTIVE: Vital Signs: Blood pressure 126/73 heart rate 82 and regular. Oxygen saturation 96%. There is no significant jugular venous distention. Chest: Clear to auscultation. Cardiac: Reveals a regular rate and rhythm without appreciable murmur or gallop. Extremities: Without edema. LABORATORY DATA: Includes a white blood cell count of 19.51, hematocrit 29.2, hemoglobin 9.6, platelet count 304,000. Sodium 142, potassium 3.5, chloride 99, carbon dioxide 30, BUN 37, creatinine 3.6, glucose 155. IMPRESSION: 1. Acute systolic heart failure with cardiomyopathy. Patient has improved with volume removal via dialysis. 2. Acute coronary syndrome probably due to supply/demand mismatch related to considerable amount of cardiac stress related to volume overload, aspiration pneumonia, and anemia. This appears to have stabilized. Left ventricular ejection fraction on repeat echocardiography appears to have improved from 20% to 35%. 3. Recent aspiration pneumonia. 4. Encephalopathy. This appears to be improving. 5. End-stage renal disease requiring chronic dialysis. 6. Type 2 diabetes mellitus. 7. Hypertension. RECOMMENDATIONS: 1. Continue current conservative cardiovascular management for the present. 2. Ultimately, patient would potentially benefit from evaluation with cardiac catheterization/coronary angiography. However, this needs to be deferred until she has sustained clinical improvement. cc: Floyd Jacinto MD
--- NOTE | 2018-08-05 18:26 | Carotid Study ---
DATE: 08/04/2018 PROCEDURE: Carotid duplex imaging. REFERRING PHYSICIAN: Kesha Brand INTERPRETING PHYSICIAN: Dr. Osei Aburto. TECH: Finesse. INDICATIONS: The patient has had a CVA. OBSERVED DATA RIGHT LEFT Brachial Blood Pressure Carotid Pulse Bruits: Carotid/Sub DIAGRAM OF ULTRASOUND IMAGING R L RIGHT INT EXT INT EXT LEFT Moshe (cm/s) Moshe (cm/s) Subclavian 71/0 Subclavian 63/9 CCA Proximal 77/8 CCA Proximal 67/8 CCA Distal 59/7 CCA Distal 59/8 Bulb 55/12 Bulb 52/8 ICA Proximal 42/10 ICA Proximal 53/9 ICA Mid 55/9 ICA Mid 64/7 ICA Distal 42/11 ICA Distal 57/15 ECA 55/0 ECA 54/0 Vertebral 30/7 A Vertebral 37/9 A ICA/CCA Ratio 0.7 ICA/CCA Ratio 0.95 % Stenosis 0-39 % Stenosis 0-39 FINDINGS: Minimal plaque is present in both bulbs. INTERPRETATION: Minimal plaque in the bulbs. No significant stenosis is present. There is antegrade vertebral flow bilaterally. cc: MD Kesha Rouse MD
[2018-08-05] MEDS: PATIENT'S OWN MED BOTH EYES SCH (20:06)
[2018-08-05] MEDS: LIPITOR PO SCH (20:06)
[2018-08-06] MEDS: HUMALOG SUBQ SCH ×7 (00:24→22:07)
[2018-08-06] MEDS: NITROGLYCERIN TOP SCH ×4 (00:24→17:00)
[2018-08-06] MEDS: CARAFATE LIQUID PO SCH ×4 (02:55→22:05)
[2018-08-06 05:24] LABS: HEMATOCRIT 28.3 % (37.0-47.0); HEMOGLOBIN 9.4 g/dL (12.0-16.0); MCH 32.4 PG (27-31); MCHC 33.2 g/dL (33-37); MCV 97.6 FL (81-99); MPV 10.6 FL (7.4-10.4); RBC 2.9 XMIL (4.2-5.4); RDW 13.2 % (11.5-14.5); WBC 17.44 X1000 (4.8-10.8)
[2018-08-06 05:53] LABS: ALB/GLOB RATIO 0.8; ALBUMIN 3.1 g/dL (3.5-5.0); CALCIUM 10.1 mg/dL (8.8-10.2); CREATININE 5.6 mg/dL (0.5-0.9); POTASSIUM 3.3 mmol/L (3.5-5.1); TOTAL BILIRUBIN 0.29 mg/dL (0.20-1.00); TOTAL PROTEIN 6.8 g/dL (6.3-8.3)
[2018-08-06] MEDS ORDERED: HEPARIN IV PRN (05:59)
[2018-08-06] MEDS ORDERED: TIGHT: 0.2 ML/HR FOR DIALYSIS MISC PRN (05:59)
[2018-08-06] MEDS ORDERED: NS 2,000 ML MISC PRN (05:59)
[2018-08-06] MEDS: COSOPT OPHTH SOLN BOTH EYES SCH ×2 (09:52→22:06)
[2018-08-06] MEDS: ALPHAGAN P 0.1% OPHTH SOLN RIGHT EYE SCH ×2 (09:53→22:06)
[2018-08-06] MEDS: ZOSYN 2.25 GM in NS 50 ML IV SCH ×2 (09:53→22:07)
[2018-08-06] MEDS: LOTREL 5/20 MG PO SCH (09:54)
[2018-08-06] MEDS: QUESTRAN PO SCH ×2 (09:54→20:06)
[2018-08-06] MEDS: ASPIRIN PO SCH (09:54)
[2018-08-06] MEDS: PROTONIX IV SCH ×2 (09:54→22:06)
[2018-08-06] MEDS: SODIUM CHLORIDE 0.9% INJ SCH (09:55)
[2018-08-06] MEDS: LOPRESSOR PO SCH ×2 (09:55→22:06)
--- NOTE | 2018-08-06 10:57 | PROGRESS NOTE ---
DATE: 08/06/2018 SUBJECTIVE: The patient is awake and alert. She states that she feels a lot better today than she has in several days. She is currently on room air. She denies having any chest pain, shortness of breath, headache or dizziness. OBJECTIVE: Vital signs: Temperature is 98.6, blood pressure 133/63, heart rate 81, respirations 20, O2 saturation is 98% on room air. General: This is an elderly female lying in bed in no acute distress. Heart: S1 and S2 normal. Regular rate and rhythm. Lungs: Clear to auscultation bilaterally. No wheezing, no rales, no rhonchi. Abdomen: Positive bowel sounds. Soft, nontender and nondistended. Extremities: No edema. No cyanosis. No calf tenderness. Neurologic: The patient is alert and oriented x3. DIAGNOSTIC DATA: White blood cell count is 17, hemoglobin 9.4, hematocrit 28, platelets 285. Sodium is 134, potassium 3.3, chloride 92, CO2 is 22, BUN is 60, creatinine 5.6 , glucose 140. AST is 18, ALT is 25. ASSESSMENT AND PLAN: 1. Acute cerebrovascular accident. Continue with aspirin and Lipitor. Physical Therapy and Occupational Therapy have been consulted. 2. Aspiration pneumonia. Continue on current antibiotic therapy. 3. Non-Q-wave myocardial infarction. Continue with the current cardiac medications as directed by the credit risk analytics manager. 4. End stage renal disease. Management as per Nephrology. 5. Diabetes mellitus type 2. Continue on sliding scale insulin. 6. Leukocytosis. Improved. We will follow up on the blood cultures. 7. Anemia. Stable. 8. GI prophylaxis. Continue on Protonix. 9. DVT prophylaxis. We will start the patient on heparin. 10.Disposition. The patient has improved. We will transfer her to [facility]. cc: Kesha Velasquez MD [facility]
--- NOTE | 2018-08-06 13:26 | PROGRESS NOTE ---
DATE: 08/06/2018 Ms. Hinojosa is awake, alert, attentive, bright, appropriate, and cheerful. She had minimal difficulty naming parts of objects. I could not find any other definite language deficit on brief bedside testing. She has good power in the left limbs today. She reports equal pinprick and light touch appreciation over the palms, left and right. She has more difficulty counting fingers in the left visual field than the right, but is improved compared to a few days ago. I do not have any new suggestions. We might repeat brain imaging at some point electively to be certain we have established baseline, but that is not absolutely necessary, and certainly is not urgent. As far as explanation for bilateral stroke goes, I am not certain. She had a few low blood pressures recorded, but those appear to have occurred after the likely stroke onset. We have not established definite cardiac source of embolus. I discussed my uncertainty frankly with patient and daughter. Thanks for asking Neurology to see Ms. Hinojosa. cc: Antwan Ridley III, MD
--- NOTE | 2018-08-06 13:37 | NEPHROLOGY PROGRESS NOTE ---
DATE: 08/06/2018 SUBJECTIVE: She feels much better. She is much more interactive today. She moves all extremities. Denies pain, shortness of breath, etc. OBJECTIVE: Vital Signs: Blood pressure 120/47, heart rate 88, respirations 20, afebrile. General: No acute distress. Skin: Warm and dry. Neck: Neck veins are not distended. Trachea is midline. Heart: Regular. No gallops. Lungs: Equal. No crackles or wheezes. Abdomen: Soft, nontender. Bowel sounds present. Extremities: No edema, clubbing or cyanosis. IMPRESSION: Chronic kidney disease 5D. She will have her next planned hemodialysis treatment tomorrow. She does have modest hypokalemia but no intervention is required. Regarding her neurologic syndrome, her mental status and cognitive function seems to be better today. She is on room air with normal O2 saturations. Anemia is stable. cc: Jostin Anne MD
--- NOTE | 2018-08-06 14:14 | PULMONOLOGY PROGRESS NOTE ---
DATE: 08/06/2018 SUBJECTIVE: The patient is awake, alert, and conversant. She quickly engages with conversation. She tracks the practitioner. OBJECTIVE: Vital Signs: The patient has been afebrile for the last 24 hours. Blood pressure 120/47, heart rate 88, respiratory rate 20, oxygen saturation 98% on room air. HEENT: Pupils are equal and reactive. Oropharynx is clear. Neck: Supple. Chest: Reveals minimal crackles at the left base. Cardiac exam: S1, S2. Abdomen: Soft and without hepatosplenomegaly. Extremities: Without edema. LABORATORY DATA: White blood count 17.44, hemoglobin 9.4, platelet count 285,000. Sodium 134, potassium 3.3, chloride 92, bicarbonate 22, BUN 60, creatinine 5.4, glucose 136. IMPRESSION: A 77-year-old with: 1. Aspiration pneumonia with continued improvement in pulmonary status. 2. Gastroesophageal reflux. 3. Acute hypoxemic respiratory failure that has resolved. 4. End-stage renal disease. 5. Bilateral central nervous system event with confusion and changes in mental status, with marked improvement over the last 2 to 3 days. 6. Diabetes mellitus. 7. Cardiomyopathy with wall motion abnormality, coronary artery disease suspected. RECOMMENDATIONS: 1. Followup chest x-ray tomorrow and consider discontinuation of oral antibiotics. 2. Continue gastric acid suppression. 3. Oral intake as tolerated. 4. Continue hemodialysis. 5. Coronary artery disease workup to be planned pending improvement in clinical course. cc: Chris Pittman MD
--- NOTE | 2018-08-06 14:52 | PROGRESS NOTE ---
DATE: 08/06/2018 SUBJECTIVE: Patient is wide awake, alert and very conversant. She denies any chest discomfort or dyspnea. Relates feeling well. She does have some diminished vision. OBJECTIVE: Vital Signs: Blood pressure 128/58, heart rate 78 and regular, oxygen saturation 99% on room air. Neck: There is no significant jugular venous distention. Chest: Clear to auscultation. Cardiac: Regular rate and rhythm without appreciable murmur, rub or gallop. Extremities: Without edema. LABORATORY DATA: Includes a white blood cell count of 17.44, hematocrit 28.3, hemoglobin 9.4, platelet count 285,000. Sodium 134, potassium 3.3, chloride 92, carbon dioxide 22, BUN 60, creatinine 5.6, glucose 140. Albumin 3.1. IMPRESSION: 1. Recent respiratory failure related to acute systolic heart failure with pulmonary edema as well as pneumonia. The patient has clinically improved. 2. Cardiomyopathy, possibly ischemic in nature. 3. Mild elevation in troponin in the midst of acute illness, probably related to supply demand mismatch. Left ventricular ejection fraction initially 20% by echocardiography and improved to 35% on most recent echocardiography after patient's clinical improvement. Underlying ischemic heart disease not excluded. 4. Encephalopathy. This appears to have improved. 5. End-stage renal disease requiring chronic dialysis. 6. Type 2 diabetes mellitus. 7. Hypertension. RECOMMENDATIONS: 1. Continue current conservative cardiovascular management. 2. Ultimately, patient would benefit from evaluation with cardiac catheterization/coronary angiography. However, given the severity of her noncardiac illness that she is just now recovering from, it would be prudent to continue to allow her to recover and consider this after sustained clinical improvement. This might be best taken up as an outpatient after she has completely recovered from her current illness. cc: Floyd Jacinto MD
[2018-08-06] MEDS ORDERED: VANCOMYCIN 1 GM/NS 1 GM/250 ML IVPB IV ONE (17:00)
[2018-08-06] MEDS: COLACE PO SCH (22:05)
[2018-08-06] MEDS: LIPITOR PO SCH (22:05)
[2018-08-06] MEDS: HEPARIN SUBQ SCH (22:06)
[2018-08-07] MEDS: CARAFATE LIQUID PO SCH ×4 (03:05→21:27)
[2018-08-07] MEDS: HUMALOG SUBQ SCH ×6 (05:38→21:36)
[2018-08-07] MEDS: NITROGLYCERIN TOP SCH ×4 (05:40→17:32)
[2018-08-07] MEDS: PATIENT'S OWN MED BOTH EYES SCH ×2 (05:41→21:35)
[2018-08-07 05:49] LABS: HEMATOCRIT 25.9 % (37.0-47.0); HEMOGLOBIN 8.7 g/dL (12.0-16.0); MCH 32.8 PG (27-31); MCHC 33.6 g/dL (33-37); MCV 97.7 FL (81-99); MPV 10.5 FL (7.4-10.4); RBC 2.65 XMIL (4.2-5.4); WBC 14.76 X1000 (4.8-10.8)
[2018-08-07] MEDS ORDERED: NS 2,000 ML MISC PRN (06:22)
[2018-08-07] MEDS ORDERED: TIGHT: 0.2 ML/HR FOR DIALYSIS MISC PRN (06:22)
[2018-08-07] MEDS ORDERED: HEPARIN IV PRN (06:22)
[2018-08-07 06:27] LABS: ALB/GLOB RATIO 0.8; ALBUMIN 2.8 g/dL (3.5-5.0); CALCIUM 9.5 mg/dL (8.8-10.2); CREATININE 7.7 mg/dL (0.5-0.9); POTASSIUM 3.9 mmol/L (3.5-5.1); TOTAL BILIRUBIN 0.19 mg/dL (0.20-1.00); TOTAL PROTEIN 6.2 g/dL (6.3-8.3)
--- NOTE | 2018-08-07 07:07 | Diag Imaging Result Doc PS360 ---
EXAM: CHEST-PORTABLE HISTORY: abnormal exam TECHNIQUE: Portable chest single view COMPARISON: 08/05/2018 FINDINGS: The lungs are well expanded except for minimal atelectasis in the left base. No cardiomegaly. No pulmonary edema. Questionable tiny left pleural effusion. No change in the right sided catheter. No pneumothorax. IMPRESSION: Stable chest. Electronically signed by Sekou Traylor 08/07/2018 7:04 AM
[2018-08-07] MEDS: ZOSYN 2.25 GM in NS 50 ML IV SCH (13:05)
[2018-08-07] MEDS: QUESTRAN PO SCH ×2 (13:05→21:28)
[2018-08-07] MEDS: HEPARIN SUBQ SCH ×2 (13:05→21:28)
[2018-08-07] MEDS: PROTONIX IV SCH ×2 (13:05→21:27)
[2018-08-07] MEDS: COLACE PO SCH ×2 (13:06→21:27)
[2018-08-07] MEDS: LOPRESSOR PO SCH ×2 (13:06→21:27)
[2018-08-07] MEDS: LOTREL 5/20 MG PO SCH (13:06)
[2018-08-07] MEDS: ASPIRIN PO SCH (13:06)
[2018-08-07] MEDS: COSOPT OPHTH SOLN BOTH EYES SCH ×2 (13:06→21:35)
[2018-08-07] MEDS: ALPHAGAN P 0.1% OPHTH SOLN RIGHT EYE SCH ×2 (13:07→21:35)
--- NOTE | 2018-08-07 14:58 | NEPHROLOGY PROGRESS NOTE ---
DATE: 08/07/2018 SUBJECTIVE: She continues to improve. She is interactive appropriately today. She states she has made more urine in the last 24 hours. OBJECTIVE: Vital Signs: Blood pressure 125/54, heart rate 77, respirations 16, afebrile. Generally: No acute distress. Skin: Warm and dry. Conjunctivae are pink. Neck: Neck veins are not visible. Heart: Regular. Lungs: Equal. Abdomen: Soft, nontender. Bowel sounds present. Extremities: No edema, clubbing or cyanosis. IMPRESSION AND PLAN: Chronic kidney disease 5D. She had hemodialysis yesterday. Electrolytes and acid-base are acceptable. No change in treatment. cc: Jostin Anne MD
[2018-08-07] MEDS ORDERED: VANCOMYCIN 1 GM/NS 1 GM/250 ML IVPB IV ONE (16:00)
--- NOTE | 2018-08-07 17:55 | PROGRESS NOTE ---
DATE: 08/07/2018 SUBJECTIVE: The patient is resting comfortably in bed. No acute events noted overnight. She has no complaints at this time. OBJECTIVE: Vital Signs: Temperature 98.6 degrees, blood pressure 106/44, heart rate 97, respirations 16, O2 saturation 98% on room air. General: This is a chronically ill-appearing elderly female lying in bed in no acute distress. Heart: S1, S2 normal. Regular rate and rhythm. Lungs: Clear to auscultation bilaterally. Abdomen: Positive bowel sounds. Soft, nontender, nondistended. Extremities: No edema, no cyanosis. Neuro: The patient is alert and oriented x4. LABS: White blood cell count 14, hemoglobin 8.7, hematocrit 25, platelets 241,000, sodium 131, potassium 3.9, chloride 92, CO2 18, BUN 82, creatinine 7.7, glucose 149. ASSESSMENT AND PLAN: 1. Acute cerebrovascular accident. Continue on aspirin and Lipitor. Continue with physical therapy. 2. Aspiration pneumonia. The patient's chest x-ray is improved and her leukocytosis is slowly improving as well. 3. Non-Q-wave myocardial infarction. Continue with the current cardiac medications. Cardiology is following. 4. End-stage renal disease. Management as per the depot agent. 5. Diabetes mellitus type 2. Stable. Continue on sliding scale insulin. 6. Anemia. Stable. 7. Gastrointestinal prophylaxis. Continue on Protonix. 8. Deep vein thrombosis prophylaxis. Continue on heparin. cc: Kesha Velasquez MD
--- NOTE | 2018-08-07 20:27 | PULMONOLOGY PROGRESS NOTE ---
DATE: 08/07/2018 SUBJECTIVE: Patient is awake, alert and conversant. She denies shortness of breath. She denies sputum production. Patient and family reports her mental status continues to improve. She does have some loss of vision peripherally. OBJECTIVE: Vital Signs: The patient has been afebrile for the last 24 hours. Blood pressure 106/44, heart rate 87, respiratory rate 15, oxygen saturation 96% on room air. HEENT: Pupils are equal and reactive. Oropharynx is clear. Neck: Is supple. Chest: Reveals good air entry bilaterally without wheezing, rales or tactile fremitus. Cardiac: S1-S2. Abdomen: Soft and without hepatosplenomegaly. Extremities: Without edema. LABORATORIES: Chest x-ray reveals minor changes at the left base. IMPRESSION: A 77-year-old with 1. Acute aspiration with continued improvement in pulmonary status. She has received a course of antibiotics. 2. Gastroesophageal reflux. 3. Acute hypoxemic respiratory failure that has resolved. 4. End-stage renal disease now on hemodialysis. 5. Bilateral cerebral events leading to confusion and changes in mental status. This is continued to improve. 6. Cardiomyopathy with wall motion abnormality, coronary artery disease suspect. 7. Diabetes mellitus. RECOMMENDATION: 1. Discontinue IV antibiotics. 2. Continue bronchial hygiene. 3. Oral intake as tolerated. 4. Anticipate cardiac workup when she has recovered from this acute event. cc: Chris Pittman MD
[2018-08-07] MEDS: LIPITOR PO SCH (21:27)
[2018-08-08] MEDS: NITROGLYCERIN TOP SCH ×4 (00:10→17:23)
[2018-08-08] MEDS: HUMALOG SUBQ SCH ×6 (00:16→20:44)
[2018-08-08] MEDS: CARAFATE LIQUID PO SCH ×4 (03:49→20:41)
[2018-08-08 06:14] LABS: HEMATOCRIT 27.6 % (37.0-47.0); HEMOGLOBIN 9.1 g/dL (12.0-16.0); MCH 32.9 PG (27-31); MCV 99.6 FL (81-99); MPV 10.8 FL (7.4-10.4); RBC 2.77 XMIL (4.2-5.4); RDW 13.4 % (11.5-14.5); WBC 14.47 X1000 (4.8-10.8)
[2018-08-08 06:27] LABS: ALB/GLOB RATIO 0.8; ALBUMIN 2.8 g/dL (3.5-5.0); CALCIUM 9.4 mg/dL (8.8-10.2); CREATININE 4.4 mg/dL (0.5-0.9); POTASSIUM 3.4 mmol/L (3.5-5.1); TOTAL BILIRUBIN 0.21 mg/dL (0.20-1.00); TOTAL PROTEIN 6.3 g/dL (6.3-8.3)
[2018-08-08] MEDS: LOTREL 5/20 MG PO SCH (08:29)
[2018-08-08] MEDS: PROTONIX IV SCH ×2 (08:29→20:42)
[2018-08-08] MEDS: ASPIRIN PO SCH (08:29)
[2018-08-08] MEDS: LOPRESSOR PO SCH ×2 (08:29→20:41)
[2018-08-08] MEDS: COSOPT OPHTH SOLN BOTH EYES SCH ×2 (08:29→20:43)
[2018-08-08] MEDS: ALPHAGAN P 0.1% OPHTH SOLN RIGHT EYE SCH ×2 (08:29→20:41)
[2018-08-08] MEDS: COLACE PO SCH ×2 (08:29→20:41)
[2018-08-08] MEDS: HEPARIN SUBQ SCH ×2 (08:30→20:42)
[2018-08-08] MEDS: QUESTRAN PO SCH ×2 (08:30→21:04)
--- NOTE | 2018-08-08 14:11 | PROGRESS NOTE ---
DATE: 08/08/2018 SUBJECTIVE: The patient is awake and alert. She appears to be back to her baseline however she states that she still cannot see properly. OBJECTIVE: Vital Signs: Temperature 98.3 degrees, blood pressure 119/51, heart rate 79, respirations 16, O2 saturation 95% on room air. General: This is an elderly female sitting up in bed in no acute distress. Heart: S1, S2 normal. Regular rate and rhythm. Lungs: Equal air entry bilaterally. No wheezing. No rales. No rhonchi. Abdomen: Positive bowel sounds. Soft, nontender, nondistended. Extremities: No edema, no cyanosis. Neuro: The patient is alert and oriented x3. LABS: White blood cell count 14, hemoglobin 9.1, hematocrit 27, platelets 257,000, sodium 135, potassium 3.4, chloride 94, CO2 24, BUN 34, creatinine 4.4, glucose 147, AST 14, ALT 20. ASSESSMENT AND PLAN: 1. Acute cerebrovascular accident. Continue with aspirin and Lipitor. Continue with physical therapy. The patient is agreeable to going to inpatient rehab. 2. Aspiration pneumonia. Resolved. The patient is off of antibiotic therapy. 3. Non-Q-wave myocardial infarction. The patient will undergo further workup as outpatient. 4. End-stage renal disease. Management as per the scleroscope tester. 5. Diabetes mellitus type 2. Stable. Continue with the insulin regimen. 6. Anemia. Stable. 7. Gastrointestinal prophylaxis. Continue on Protonix. 8. Deep vein thrombosis prophylaxis. Continue on heparin. 9. Disposition. Shipyard Painter is working on inpatient rehabilitation for the patient. cc: Kesha Velasquez MD
[2018-08-08] MEDS: LIPITOR PO SCH (20:41)
[2018-08-08] MEDS: SODIUM CHLORIDE 0.9% INJ SCH (20:42)
[2018-08-08] MEDS: PATIENT'S OWN MED BOTH EYES SCH (20:44)
[2018-08-09] MEDS: HUMALOG SUBQ SCH ×6 (03:58→21:20)
[2018-08-09] MEDS: NITROGLYCERIN TOP SCH ×4 (03:59→11:43)
[2018-08-09] MEDS: CARAFATE LIQUID PO SCH ×4 (03:59→21:19)
[2018-08-09 05:50] LABS: HEMATOCRIT 24.9 % (37.0-47.0); HEMOGLOBIN 8.3 g/dL (12.0-16.0); MCH 32.7 PG (27-31); MCHC 33.3 g/dL (33-37); MPV 11.3 FL (7.4-10.4); RBC 2.54 XMIL (4.2-5.4); RDW 13.1 % (11.5-14.5); WBC 16.03 X1000 (4.8-10.8)
[2018-08-09 06:07] LABS: ALBUMIN 3.1 g/dL (3.5-5.0); CALCIUM 9.6 mg/dL (8.8-10.2); POTASSIUM 3.7 mmol/L (3.5-5.1); TOTAL BILIRUBIN 0.17 mg/dL (0.20-1.00); TOTAL PROTEIN 6.1 g/dL (6.3-8.3)
[2018-08-09 06:08] LABS: CREATININE 6.7 mg/dL (0.5-0.9)
[2018-08-09] MEDS ORDERED: HEPARIN IV PRN (07:48)
[2018-08-09] MEDS ORDERED: TIGHT: 0.2 ML/HR FOR DIALYSIS MISC PRN (07:48)
[2018-08-09] MEDS ORDERED: NS 2,000 ML MISC PRN (07:48)
[2018-08-09] MEDS: PROTONIX IV SCH ×2 (09:27→21:19)
[2018-08-09] MEDS: COLACE PO SCH ×2 (09:27→21:19)
[2018-08-09] MEDS: LOTREL 5/20 MG PO SCH (09:27)
[2018-08-09] MEDS: LOPRESSOR PO SCH ×2 (09:27→21:19)
[2018-08-09] MEDS: ASPIRIN PO SCH (09:28)
[2018-08-09] MEDS: ALPHAGAN P 0.1% OPHTH SOLN RIGHT EYE SCH ×2 (09:29→21:18)
[2018-08-09] MEDS: COSOPT OPHTH SOLN BOTH EYES SCH ×2 (09:29→21:18)
[2018-08-09] MEDS: QUESTRAN PO SCH ×2 (09:30→21:18)
[2018-08-09] MEDS: HEPARIN SUBQ SCH ×2 (09:30→21:19)
--- NOTE | 2018-08-09 09:52 | PROGRESS NOTE ---
DATE: 08/09/2018 SUBJECTIVE: Ms. Hinojosa is awake, alert, attentive, cheerful, appropriate. She reports feeling better each day but still not quite back to baseline. OBJECTIVE: On exam, she continues to have trouble counting fingers consistently in the left field. She has good right visual field on bedside confrontational finger counting. She did better with naming parts of objects today but still made some mistakes. Power is good in the arms. She did well on [id number] testing bilaterally. She reports equal sensation on brief testing over the hands. IMPRESSION: Bilateral mostly parietal infarctions occurring at the same time. I do not have any new thoughts regarding explanation. She seems to be stable and improved from neurologic standpoint. I do not think we need further workup right now. Thanks for asking Neurology to see Ms. Hinojosa. cc: Antwan Ridley III, MD
--- NOTE | 2018-08-09 14:58 | NEPHROLOGY PROGRESS NOTE ---
DATE: 08/09/2018 SUBJECTIVE: Patient is sitting up in bed. She hopes to go to rehab. She states that she is having a hard time remembering things after her CVA. OBJECTIVE: Vital Signs: Temperature 97.8 degrees, pulse 82, respiratory rate 16, blood pressure 128/60. Intake 820 mL. Output not measured. Physical Examination: General: Elderly female, sitting up in bed. Awake and alert. She is in no acute distress. She is able to have an appropriate conversation. HEENT: Normocephalic, atraumatic. KAYLIE. Neck: Supple. No JVD. Cardiovascular: Regular rate and rhythm. Pulmonary: She is clear bilaterally. Abdomen: Soft. Positive bowel sounds. PD catheter noted in the right lower quadrant. No edema or erythema. Dressing in place. Integumentary: Skin is warm and dry. Extremities: No clubbing, cyanosis, or edema. Lab Data: WBC of 16, hemoglobin 8.3. Sodium 133, potassium 3.7, CO2 20, creatinine 6.7. ASSESSMENT AND PLAN: Chronic kidney disease 5D. The patient has been transitioned over to hemodialysis for the time-being. We will continue her on a Thursday, , Thursday schedule. If she is in the hospital tomorrow, we will dialyze. Otherwise, she should already have outpatient setup wherever she is going for rehab. Dictated by KEO Merchant for Jostin Anne MD Face to face encounter, data reviewed, discussed with Jose Richey on 08/09/18. I agree with the above assessment and plan of care. cc: Jostin Anne MD [facility]
[2018-08-09] MEDS: IMDUR PO SCH (16:42)
--- NOTE | 2018-08-09 17:38 | PROGRESS NOTE ---
DATE: 08/09/2018 SUBJECTIVE: Patient continues without chest discomfort or dyspnea. She relates feeling well. She continues on room air. OBJECTIVE: Blood pressure 122/50, heart rate 81, oxygen saturation 100% on room air. Neck: There is no significant jugular venous distention. Chest: Clear to auscultation. Cardiac: Reveals a regular rate and rhythm without appreciable murmur or gallop. There is no evidence of peripheral edema. LABORATORY DATA: Includes a white blood cell count of 16.03, hematocrit 24.9, hemoglobin 8.3, platelet count 243,000. Sodium 133, potassium 3.7, chloride 95, carbon dioxide 28, BUN 50, creatinine 6.7. IMPRESSION: 1. Recent respiratory failure due to acute systolic heart failure with pulmonary edema as well as pneumonia. Patient is clinically improved. 2. Cardiomyopathy, possibly ischemic in nature. 3. Mild elevation in troponin. Admits to acute illness, probably related to supply demand mismatch. Left ventricular ejection fraction initially 20% by echocardiography, improved to 35% on more recent echocardiography after patient's clinical improvement. 4. Encephalopathy. This has improved. 5. End-stage renal disease requiring chronic dialysis. 6. Type 2 diabetes mellitus. 7. Hypertension. 8. Gastroesophageal reflux disease. RECOMMENDATIONS: 1. Continue medical management for patient's suspected coronary atherosclerosis and cardiomyopathy for now. Discontinue topical nitrates and start Endurant. 2. After patient has improved further and recovered from this acute event, consideration will be given to pursuit of cardiac catheterization, selective coronary angiography for definitive evaluation of her cardiomyopathy. 3. Plan is to send her to a retirement facility for rehab. I will plan on seeing her back in approximately 3 weeks to consider further care. cc: Floyd Jacinto MD
[2018-08-09] MEDS: SODIUM CHLORIDE 0.9% INJ SCH (21:19)
[2018-08-09] MEDS: LIPITOR PO SCH (21:19)
[2018-08-09] MEDS: PATIENT'S OWN MED BOTH EYES SCH (21:24)
--- NOTE | 2018-08-10 00:22 | PROGRESS NOTE ---
DATE: 08/09/2018 SUBJECTIVE: The patient is resting comfortably . She is currently sitting in a chair. She states that she is feeling stronger every day, no acute events noted overnight. OBJECTIVE: Vital Signs: Temperature 97.9 degrees, blood pressure 122/50, heart rate 81, respirations 16, O2 saturations 100% on room air. General: This is an elderly female sitting in a chair in no acute distress. Heart: S1, S2 normal. Regular rate and rhythm. Lungs: Equal air entry bilaterally. No crackles, no rales. Abdomen: Positive bowel sounds. Soft, nontender, nondistended. Extremities: No edema, no cyanosis. Neuro: The patient is alert and oriented x4. LABS: White blood cell count 16, hemoglobin 8.3, hematocrit 24, platelets 243, 000, sodium 133, potassium 3.7, chloride 95, CO2 20, BUN 50, creatinine 6.7, glucose 185, AST 15 , ALT 18, alkaline phosphatase 105, albumin 3.1. ASSESSMENT AND PLAN: 1. Acute cerebrovascular accident. Continue on aspirin and Lipitor. Continue with physical therapy and occupational therapy. Arrangements are being made for the patient to be sent to inpatient rehab. 2. Aspiration pneumonia. Resolved. 3. Acute pulmonary edema with cardiomegaly. Stable. 4. End-stage renal disease. Management as per the supervisor cook house. 5. Non-Q-wave myocardial infarction. Continue on the current cardiac medications. The patient will follow up with the information technology officer upon discharge from rehab. 6. Diabetes mellitus type 2. Continue on the current insulin regimen. 7. Anemia. Stable. 8. Leukocytosis. The patient is afebrile. Blood cultures remain negative. Will continue to monitor the white blood cell count closely. 9. Deep vein thrombosis prophylaxis. Continue on heparin. 10. Disposition. The patient will be discharged to inpatient rehabilitation once a rehab bed is available. cc: Kesha Velasquez MD MTDD
[2018-08-10] MEDS: CARAFATE LIQUID PO SCH ×3 (04:10→13:27)
[2018-08-10 05:38] LABS: HEMATOCRIT 25.3 % (37.0-47.0); HEMOGLOBIN 8.4 g/dL (12.0-16.0); MCH 32.7 PG (27-31); MCHC 33.2 g/dL (33-37); MCV 98.4 FL (81-99); MPV 11.3 FL (7.4-10.4); RBC 2.57 XMIL (4.2-5.4); RDW 13.2 % (11.5-14.5); WBC 15.65 X1000 (4.8-10.8)
[2018-08-10 06:03] LABS: ALBUMIN 3.1 g/dL (3.5-5.0); CALCIUM 9.7 mg/dL (8.8-10.2); CREATININE 8.1 mg/dL (0.5-0.9); PHOSPHORUS 5.2 mg/dL (2.7-4.5); POTASSIUM 4.1 mmol/L (3.5-5.1)
[2018-08-10] MEDS: HUMALOG SUBQ SCH ×2 (06:30→13:27)
[2018-08-10] MEDS ORDERED: NS 2,000 ML MISC PRN (06:56)
[2018-08-10] MEDS ORDERED: TIGHT: 0.2 ML/HR FOR DIALYSIS MISC PRN (06:56)
[2018-08-10] MEDS ORDERED: HEPARIN IV PRN (06:56)
[2018-08-10 12:50] VITALS: BP 127/44
--- NOTE | 2018-08-10 13:24 | NEPHROLOGY PROGRESS NOTE ---
DATE: 08/10/2018 SUBJECTIVE: Patient is sitting up in a chair today. She has been able to ambulate with assistance. She had some nausea early this morning. OBJECTIVE: Vital Signs: Temperature 98.1 degrees, pulse 82, respiratory rate 18, blood pressure 125/49, intake 940 mL, output 200 mL. General: Elderly female, sitting up in a chair. She is awake and alert. No acute distress. HEENT: Normocephalic, atraumatic. KAYLIE. Neck: Supple without JVD. Cardiovascular: Regular rate and rhythm. No murmur. Pulmonary: Clear bilaterally. Equal excursion. Abdomen: Soft with positive bowel sounds. PD catheter intact. : Not inspected. Extremities: No clubbing, cyanosis or edema. Integumentary: Skin is pale, warm, and dry. Tunnel dialysis catheter insertion site with no drainage or erythema. LAB DATA: WBC of 15.6, hemoglobin 8.4, sodium 132, potassium 4.1, CO2 17, creatinine 8.1. ASSESSMENT AND PLAN: 1. End-stage renal disease. She is dialyzed on a Thursday, , Thursday schedule currently. We will plan to dialyze her today on a 2 K bath/UF to last dry weight last 4 hour treatment. 2. Acute cerebrovascular accident. Patient recovering plans to go to rehab. I checked with the nurses and they state that all of her paperwork has been sent to the rehab facilities in [place]. As such, I will direct the dialysis nurses to arrange for outpatient dialysis at the [facility]. She did have a hepatitis panel drawn 8 days ago that was nonreactive so that is in place for outpatient procedure. Dictated by KEO Merchant for Jostin Anne MD Face to face encounter, data reviewed, discussed with Jose Richey on 08/10/18. I agree with the above assessment and plan of care. cc: MD JESSIKA Velasquez
[2018-08-10] MEDS: ALPHAGAN P 0.1% OPHTH SOLN RIGHT EYE SCH (13:26)
[2018-08-10] MEDS: ASPIRIN PO SCH (13:27)
[2018-08-10] MEDS: PROTONIX IV SCH (13:27)
[2018-08-10] MEDS: IMDUR PO SCH (13:27)
[2018-08-10] MEDS: QUESTRAN PO SCH (13:27)
[2018-08-10] MEDS: COLACE PO SCH (13:28)
[2018-08-10] MEDS: LOPRESSOR PO SCH (13:28)
[2018-08-10] MEDS: LOTREL 5/20 MG PO SCH (13:28)
[2018-08-10] MEDS: HEPARIN SUBQ SCH (13:28)
[2018-08-10] MEDS: COSOPT OPHTH SOLN BOTH EYES SCH (13:28)
--- NOTE | 2018-08-10 14:33 | DISCHARGE SUMMARY ---
ADMISSION DATE: 07/27/2018 DISCHARGE DATE: PRINCIPAL DIAGNOSIS: Acute cerebrovascular accident. SECONDARY DIAGNOSES: 1. Aspiration pneumonia. 2. End-stage renal disease, on dialysis. 3. Non-Q-wave myocardial infarction (AK). 4. Diabetes mellitus, type 2. 5. Anemia. 6. Leukocytosis. 7. Hyperlipidemia. 8. Gastroesophageal reflux disease. 9. Glaucoma. DISCHARGE MEDICATIONS: Include the following: Nitroglycerin 0.4 mg sublingual every five minutes as needed. Sucralfate 1 g every 6 hours. Metoprolol 25 mg p.o. twice a day. Aspirin 81 mg p.o. daily. Questran 4 mg p.o. twice a day. Imdur 30 mg p.o. daily. Lipitor 40 mg p.o. daily. Colace 100 mg p.o. twice a day. Lotrel 10/40 mg 1 daily. Pantoprazole 40 mg p.o. daily. Cosopt eye drops to be used as directed twice a day. Lasix 40 mg p.o. daily. Humalog to be taken as directed. Insulin pump as directed. Vitamin D 1.2 mg orally daily. Zioptan eyedrops 1 drop both eyes daily. Alphagan eyedrops 1 drop ophthalmic twice a day. Travatan eyedrops 1 drop of chronic bedtime. Levemir 15 units subcutaneous daily. CONSULTATIONS DONE DURING THIS HOSPITAL STAY: Include the following: Dr. White , Cardiology; Dr. Osborne, Gastroenterology; Dr. Anne, Nephrology; Dr. Pittman, Pulmonology; Dr. Ridley, Neurology. PROCEDURES DONE DURING THIS HOSPITAL STAY: Head CT on 08/04/2018. MRI of the brain, 08/04/2018. Coronary angiogram CT, 07/30/2018. Chest CT on 07/28/2018. A 2D echocardiogram on 07/28/2018. HOSPITAL COURSE: Ms Jacqueline Hinojosa is a 77-year-old female who was admitted to the hospital with initial diagnoses of epigastric pain, possible peritonitis, as well as bilateral pneumonia. She has end-stage renal disease on peritoneal dialysis, along with type 2 diabetes mellitus, hypertension, and also anemia. The patient was maintained on antibiotics for pneumonia and proton pump inhibitor for Probable peptic ulcer disease (re: epigastric pain) With regards to her end-stage renal disease on peritoneal dialysis, we did consult with her lead database administrator, Dr. Anne. The patient developed acute coronary syndrome and was seen by the Cardiology team. The plan was to have the patient have a left heart catheterization, and the patient may have to be sent to [facility] for that. MRI of the brain done on 08/04/18 showed a picture suggestive of acute or subacute infarction. The patient was maintained on aspirin, statin, and PT was recommended. The patient was also seen by the Neurology team. At this time, the patient has done fairly well. She can now be discharged to rehabilitation facility where she will continue to recuperate. PHYSICAL EXAMINATION: Vital signs: During my evaluation today, her vital signs were as follows: Temperature 98.5 degrees, pulse 95, respirations 18, blood pressure 122/44, oxygen saturation 99%. HEENT: Atraumatic, normocephalic. Cardiovascular system: S1, S2. Respiratory system: Has evidence of good air entry bilaterally. Extremities: No evidence of significant edema. Central nervous system: No obvious focal deficit noted. LABORATORY DATA: WBC 15.65, hematocrit 25.3, with a platelet count of 260,000. Sodium is 132, potassium 4.1, chloride 96, bicarbonate 17, BUN is 59, creatinine is 8.1. PLAN: The patient can now be discharged to rehabilitation facility. She will need to continue her discharge medications as outlined above. She will also need to follow up with Cardiology with regards to her recent history of AK and also her lead database administrator as she is on dialysis. The patient will also need to follow up with Dr. Dameon Osborne, her sap pi architect, as well as her primary care physician Dr. Dario Baez. While in the rehabilitation facility, will continue PT and OT, and her diet will need to be 1800 ADA/healthy heart/renal diet. cc: Moses Rocha MD [facility]
== END 2018-08-10 16:11 | DRG 871 ==
LOC: ED 17:52 → SUATTDRO 22:38 → EDIPHOLD 22:38 → 3N 07-28 02:07 → ICU 07-28 17:37 → 3S 08-06 12:30
PROVIDERS: ATTEND Internal Medicine
CPT/HCPCS: 36430; 70450; 70551; 71010; 71020; 71045; 71046; 71250; 74019; 74020; 74176; 77001; 80053; 80061; 80069; 80074; 80202; 81001; 82140; 82150; 82550; 82805; 82948; 83036; 83605; 83690; 83735; 84484; 85025; 85027; 85610; 85730; 86850; 86900; 86901; 86920; 87040; 87070; 87088; 87205; 89051; 93005; 93010; 93306; 93880; 94761; 94762; 94799; 96365; 96375; 96376; 97110; 97162; 97165; 97530; 97535; 99285; A9270; C1750; C8924; C8929; C9113; J0696; J1644; J1815; J1940; J2270; J2370; J2405; J2543; J3370; J7030; J7050; P9016; Q9957; S0164; XXXXX

== ENCOUNTER 2018-09-15 21:21 | Inpatient (IN) ==
[2018-09-15] MEDS ORDERED: ASPIRIN PO ONE (22:14)
[2018-09-15 22:32] LABS: BASO# 0.01 X1000 (0.0-0.2); BASO% 0.1 % (0.0-0.8); EOS# 0.09 X1000 (0.0-0.7); EOS% 0.8 % (0.0-10.0); IMM GRAN# 0.02 X1000 (0.0-0.04); IMM GRAN% 0.2 % (0.0-0.5); LYMPH# 2.67 X1000 (1.2-3.4); LYMPH% 22.7 % (20.5-51.1); MCH 31.4 PG (27-31); MONO# 0.86 X1000 (0.11-0.59); MONO% 7.3 % (1.7-9.3); NEUT# 8.13 X1000 (1.4-6.5); NEUT% 68.9 % (42.2-75.2); PLT 242 X1000 (130-400); RBC 2.55 XMIL (4.2-5.4); RDW 14.5 % (11.5-14.5); WBC 11.78 X1000 (4.8-10.8)
[2018-09-15 22:33] LABS: INR 1.07; PROTIME 14.8 Seconds (11.0-16.0); PTT 35.2 Seconds (22.3-41.8)
[2018-09-15 22:58] LABS: ALB/GLOB RATIO 1.3; ALBUMIN 3.6 g/dL (3.5-5.0); POTASSIUM 4.9 mmol/L (3.5-5.1); TOTAL BILIRUBIN 0.44 mg/dL (0.20-1.00); TOTAL PROTEIN 6.3 g/dL (6.3-8.3)
[2018-09-15 23:00] LABS: CREATININE 5.2 mg/dL (0.5-0.9)
--- NOTE | 2018-09-16 01:56 | ED EKG INTERP ---
This chart was entered by Carmen Cervantes Scribe, acting as scribe for Yuval Millan MD. EKG Interpretation - EKG Time of EKG reading by physician:: 21:34 EKG Read and Signed by:: Yuval Millan EKG Interpretation (*Must complete 3 of following elements*): Abnormal Rate: 91 Rhythm: NSR QRS: LBB (incomplete) ST Wave: non-specific ST changes (ST & T wave abnormality, consider inferolateral ischemia) Attestation - Physician/ BHAVANA Attestation Patient care was provided by Advanced Practice Provider:: No The physician spent face to face time with patient:: Yes Advanced Practice Provider documentation review:: Supervising physician onsite and consulted in the evaluation and care of this patient. The physician did have a face to face encounter with the patient. This chart was documented by the indicated scribe, (Carmen Cervantes Scribe) and accurately reflects the services I performed and decisions made by meMonty Brad R., MD, as attested by the provider's signature.
--- NOTE | 2018-09-16 03:43 | PROVIDER DOCUMENTATION ---
HPI-General Adult - General Chief Complaint: Shortness of Breath Stated Complaint: SOB/FLUID Time Seen by Provider: 09/16/18 02:52 Source: patient Allergies/Adverse Reactions: Patient Allergies Allergy/AdvReac Type Severity Reaction Status Date / Time No Known Allergies Allergy Verified 12/17/17 08:22 Home Medications: Home Medication List Medication Instructions Recorded Confirmed Last Taken Type Amlodipine Besylate/Benazepril 1 each PO DAILY 12/17/17 07/27/18 07/27/18 History [Lotrel 10-40 mg Capsule] Dorzolamide HCl/Timolol Maleat 1 drop OP BID 12/17/17 07/27/18 07/27/18 History [Cosopt Eye Drops] Furosemide [Lasix] 40 mg PO DAILY 12/17/17 07/27/18 07/27/18 History Insulin Lispro [Humalog] 0 unit SQ DIRECTED 12/17/17 07/27/18 07/27/18 History Pantoprazole Sodium [Protonix] 40 mg PO DAILY 12/17/17 07/27/18 07/27/18 History Subcutaneous Insulin Pump [Insulin 1 each MC DAILY 12/17/17 07/28/18 07/27/18 History Pump] Ergocalciferol (Vitamin D2) 1.2 mg PO DAILY 07/27/18 07/27/18 07/27/18 History [Vitamin D2] Tafluprost/Pf [Zioptan 0.0015% Eye 1 drop BOTH EYES DAILY 07/27/18 07/27/18 Unknown History Drops] Brimonidine 0.1% Ophth Soln 1 drop OPH BID 07/28/18 07/28/18 07/27/18 History [Alphagan P 0.1% Ophth Soln] 0.1 Dorzolamide/Timolol Ophth Soln 1 drop OPH BID 07/28/18 07/28/18 Unknown History [Cosopt Ophth Soln] Insulin Detemir [Levemir Flextouch] 15 unit SQ DAILY 07/28/18 07/28/18 07/27/18 History 15 units Travoprost 0.004% Oph Soln 1 drop OPH HS 07/28/18 07/28/18 07/26/18 History [Travatan 0.004% Oph Soln] 1 ATORVAstatin [Lipitor] 40 mg PO QHS tablet 08/10/18 Unknown Rx Aspirin 81 mg PO DAILY chewtab 08/10/18 Unknown Rx Cholestyramine [Questran] 4 gm PO BID packet 08/10/18 Unknown Rx Docusate Sodium [Colace] 100 mg PO BID capsule 08/10/18 Unknown Rx Isosorbide Mononitrate E.r. [Imdur] 30 mg PO DAILY tablet 08/10/18 Unknown Rx Metoprolol [Lopressor] 25 mg PO Q12HR tablet 08/10/18 Unknown Rx Nitroglycerin Sl [Nitroglycerin] 0.4 mg SL Q5M PRN PRN tablet 08/10/18 Unknown Rx Sucralfate [Carafate Liquid] 1 gm PO Q6HR udc 08/10/18 Unknown Rx - History of Present Illness -Gen Adult Nature of Presenting Problems: Pt presents with sob, x 4 days, getting progressively worse, can't lie flat, pmh of dialysis, pt denies f/c, bauman, cp, cough, ap, n/v/d, pt is lying in bed in no acute distress. Location of Pain/Injury: reports: none Pain Radiation: reports: no radiation Quality of Pain: reports: none Severity: reports: moderate Onset/Duration: reports: 4 days ago Timing: reports: still present Context/Activities at Onset: reports: light activity Modifying Factors: improves with: nothing Associated Symptoms: reports: shortness of breath Similar Symptoms Previously?: Yes Recently seen or treated by another doctor?: No Review of Systems - Adult - REVIEW OF SYSTEMS - ADULT Constitutional: reports: no symptoms reported Eyes: reports: no symptoms reported Ears, Nose, Mouth & Throat: reports: no symptoms reported Cardiovascular: reports: no symptoms reported Respiratory: reports: see HPI Gastrointestinal: reports: no symptoms reported Genitourinary: reports: no symptoms reported Musculoskeletal: reports: no symptoms reported Integumentary: reports: no symptoms reported Neurological: reports: no symptoms reported Psychiatric: reports: no symptoms reported Endocrine: reports: no symptoms reported Hematologic/Lymphatic: reports: no symptoms reported Allergic/Immunologic: reports: no symptoms reported All Other Systems: Reviewed and Negative Past History - Adult - PAST MEDICAL HISTORY-ADULT Review of Records: reports: Old Records Reviewed, Nursing Assessment Review, Medications Reviewed, Social history reviewed & non-contributory. Major Childhood Illnesses: reports: denies history Cardiovascular: reports: denies history Respiratory: reports: denies history Gastrointestinal: reports: denies history Obstetrical/Gynecological: reports: denies history Genitourinary: reports: denies history Musculoskeletal: reports: denies history Neurological: reports: denies history Endocrine/Immune: reports: denies history Other Conditions: reports: denies history - IMMUNIZATION STATUS Childhood Immunizations: See Nurse Assessment Flu Vaccine: See Nurse Assessment - FAMILY HISTORY Family History: reviewed, not pertinent Physical Exam-General - PHYSICAL EXAM-ADULT Initial Vital Signs Reviewed: Yes - CONSTITUTIONAL General Appearance: appears well - EYES Eyes: PERRL/EOMI - HEAD, EARS, NOSE, MOUTH & THROAT HENMT: normocephalic/atraumatic, normal ENT inspection - NECK Neck: normal inspection - RESPIRATORY Respiratory: no respiratory distress, rales - CARDIOVASCULAR Cardiovascular: regular rate, rhythm - GASTROINTESTINAL (ABDOMEN) Abdominal Exam: non tender, soft - LYMPHATIC Lymphatic: no adenopathy - MUSCULOSKELETAL Back Exam: normal inspection Extremity: normal range of motion - SKIN Integumentary: normal color - NEUROLOGIC Neurologic: senior wealth advisor II-XII nml as tested - PSYCHIATRIC Psych/Mental Status: normal mood/affect Progress - PLAN OF CARE/RESULTS Progress/Plan/Lab Results: Vital Signs - 8 hr 09/15/18 21:26 09/16/18 00:10 09/16/18 00:17 Temperature 98.6 F 98.8 F Pulse Rate 87 92 H Respiratory Rate 18 Blood Pressure 119/69 145/69 O2 Sat by Pulse Oximetry 96 88 L 95 Laboratory Results - last 24 hr 09/15/18 09/15/18 09/15/18 21:56 21:56 21:56 WBC 11.78 H RBC 2.55 L Hgb 8.0 L Hct 25.0 L MCV 98.0 MCH 31.4 H MCHC 32.0 L RDW Std Deviation 14.5 Plt Count 242 MPV 11.0 H Immature Gran % (Auto) 0.2 Neut % (Auto) 68.9 Lymph % (Auto) 22.7 [place] % (Auto) 7.3 Eos % (Auto) 0.8 Baso % (Auto) 0.1 Immature Gran # (Auto) 0.02 Neut # (Auto) 8.13 H Lymph # (Auto) 2.67 [place] # (Auto) 0.86 H Eos # (Auto) 0.09 Baso # (Auto) 0.01 PT INR PTT (Actin FS) Sodium 130 L Potassium 4.9 Chloride 90 L Carbon Dioxide 22 L Anion Gap 18 BUN 40 H Creatinine 5.2 H Estimated GFR/1.73 m2 8 BUN/Creatinine Ratio 8 Glucose 261 H Calculated Osmolality 280 Calcium 10.0 Total Bilirubin 0.44 AST 11 ALT 15 Alkaline Phosphatase 108 H Creatine Kinase 28 Troponin T [id number] Pept > 74111 H Total Protein 6.3 Albumin 3.6 Globulin 2.7 Albumin/Globulin Ratio 1.3 09/15/18 09/15/18 21:56 21:56 WBC RBC Hgb Hct MCV MCH MCHC RDW Std Deviation Plt Count MPV Immature Gran % (Auto) Neut % (Auto) Lymph % (Auto) [place] % (Auto) Eos % (Auto) Baso % (Auto) Immature Gran # (Auto) Neut # (Auto) Lymph # (Auto) [place] # (Auto) Eos # (Auto) Baso # (Auto) PT 14.8 INR 1.07 PTT (Actin FS) 35.2 Sodium Potassium Chloride Carbon Dioxide Anion Gap BUN Creatinine Estimated GFR/1.73 m2 BUN/Creatinine Ratio Glucose Calculated Osmolality Calcium Total Bilirubin AST ALT Alkaline Phosphatase Creatine Kinase Troponin T 0.091 H [id number] Pept Total Protein Albumin Globulin Albumin/Globulin Ratio Orders Category Date Time Status Cardiac Monitoring DIRECTED Care 09/15/18 22:14 Active Oxygen Therapy- ED Nursing DIRECTED Care 09/15/18 22:14 Active Saline Loc NOW Care 09/15/18 22:14 Active CBC WITH ELECTRONIC DIFF [HEME] Stat Lab 09/15/18 21:56 Completed CK PROFILE [SP CHEM] Stat Lab 09/15/18 21:56 Completed COMPREHENSIVE METABOLIC PANEL [CHEM] Stat Lab 09/15/18 21:56 Completed PRO B-NATRIURETIC PEPTIDE Stat Lab 09/15/18 21:56 Completed PROTIME WITH INR [COAG] Stat Lab 09/15/18 21:56 Completed PTT [COAG] Stat Lab 09/15/18 21:56 Completed TROPONIN T Stat Lab 09/15/18 21:56 Completed Aspirin Med 09/15/18 22:14 Discontinued 325 mg PO NOW ONE CP/SOB/Palp >45 yrs of Age Stat Oth 09/15/18 22:14 Ordered EKG [EKG] Stat Ther 09/15/18 21:28 Ordered Result Diagrams: 09/15/18 21:56 09/15/18 21:56 Departure - Departure Date of Disposition Decision: 09/16/18 Time of Disposition Decision: 03:42 DIAGNOSIS: Pleural effusion Disposition: ADMITTED INPATIENT 09 Certified Medical Emergency: Emergent Condition: Stable Referrals and Follow-Ups: Xavi Aburto [Primary Care Provider] - - Critical Care Note This patient required my direct & personal management of CC.: No Attestation - Physician/ BHAVANA Attestation Patient care was provided by Advanced Practice Provider:: No The physician spent face to face time with patient:: Yes Advanced Practice Provider documentation review:: Supervising physician onsite and consulted in the evaluation and care of this patient. The physician did have a face to face encounter with the patient.
[2018-09-16] MEDS ORDERED: LASIX IV ONE (04:09)
[2018-09-16] MEDS ORDERED: LASIX ONE (04:11)
[2018-09-16] MEDS ORDERED: TYLENOL PO PRN (05:22)
[2018-09-16] MEDS ORDERED: ZOFRAN IV PRN (05:22)
[2018-09-16 05:54] LABS: PHOSPHORUS 2.9 mg/dL (2.7-4.5)
[2018-09-16 06:00] LABS: RETIC% 2.47 % (0.8-2.1); RETIC-HE 27.8 PG (28.2-36.6)
--- NOTE | 2018-09-16 06:06 | HISTORY AND PHYSICAL ---
PHYSICIAN: Xavi Aburto MD REASON FOR ADMISSION: Two-day history of worsening shortness of breath. HISTORY OF PRESENT ILLNESS: Ms. Jacqueline Hinojosa is a 77-year-old woman with a past medical history of hypertension, endstage renal disease on hemodialysis, hyperlipidemia, reflux disease, type 2 diabetes, anemia and glaucoma. She comes in today complaining of a 2-3 day history of dyspnea on exertion and a 1-day history of dyspnea at rest today. She states that over the last 2 nights she has had worsening orthopnea and 1 day of PND. She also complains of a 2-day history of easy satiety and slight abdominal fullness and swelling. Oddly enough, she denies any lower extremity swelling. She has been having frequent increased cough over the last 4 days. No fever, no chills. She denies any chest pain, however. She denies any GI or complaints other than easy satiety. She denies any polyuria or polydipsia. She has chronic decreased visual acuity secondary to glaucoma and recently had plugs put into her right eye a few days ago. Otherwise, no arthralgia or rash. REVIEW OF SYSTEMS: A 12-system review was done and positive findings per HPI. No focal neurological deficits. ALLERGIES: Possible allergy to flu shots some other injectable insulins in the past. HOME MEDICATIONS: Have not been reconciled, but she does take 40 mg of Lasix. PAST SURGICAL HISTORY: Cholecystectomy, peritoneal dialysis port placement, PermCath placement and right eye surgery for glaucoma. SOCIAL HISTORY: She does not smoke, drink or use illicit drugs. . FAMILY HISTORY: Positive history for cervical cancer, heart disease and chronic kidney disease in first-degree relatives. LABORATORY WORK: White blood cell count 11,000, hemoglobin 8, hematocrit 25, platelets 242,000 with normal differential. Sodium is . Hemoglobin and hematocrit 12 and 35. Platelets 229,000 with normal differential. Sodium is 130, BUN 40, creatinine 5.2, glucose 261. ProBNP 335,000. Troponin 0.091, but CK is normal. PTT is normal. EKG shows left bundle-branch block with normal sinus rhythm, rate of 90s, nonspecific ST-T wave changes noted. Her chest film shows bilateral pleural effusion as manifested by blunting of the costophrenic angles and increased vascular markings. PHYSICAL EXAMINATION: VITAL SIGNS: Blood pressure 133/71, heart rate 100, respirations 30, temperature is 98.8, she is 96% on 2 L. She actually desaturate into the mid 80s on room air while in the waiting room. GENERAL: Pleasant, elderly woman who is not in acute distress. She is AAO x3 with normal mood and affect. HEENT: Head is normocephalic and atraumatic. Eyes, PERRL, EOMI. Sclerae anicteric, not pale. ENT and oropharynx exam is grossly normal. NECK: Supple. Mild hepatojugular reflux, but no JVD. CHEST: Bibasilar crepitations heard. No wheezes. Decreased air entry in the bases. CARDIOVASCULAR: First and second heart sounds heard. No murmurs, gallops or rubs. Rhythm is regular. ABDOMEN: Slight protuberant, soft, no tenderness, no organomegaly. Bowel sounds are hypoactive. RECTAL: Deferred at this time. EXTREMITIES: The patient has good distal pulse volumes in all extremities distally. Rhythm is regular. No clubbing or peripheral cyanosis. NEUROLOGIC: No gross focal deficits. No tremors. SKIN: Intact. No breakdown, lesions or erythema. MUSCULOSKELETAL: Grossly normal. ASSESSMENT AT THIS TIME: 1. Pulmonary edema and bilateral pleural effusions secondary to poor fluid excretion which the patient admits to for the last 1 week. The patient is scheduled for dialysis today and with this dialysis some degree of ultrafiltration will be embarked on hopefully by Dr. Anne. The patient was given IV Lasix in the emergency room to induce some degree of diuresis prior to hemodialysis today. 2. Type 2 diabetes, now appears to be slightly uncontrolled. A1c will be ordered to assess the patient's degree of control. 3. Anemia. Patient does not admit to any overt issues of blood loss, however, anemia workup has been ordered. This could be related to the patient's underlying renal disease. Please follow anemia workup and address any deficiencies. 4. Hypertensive chronic kidney disease. Will defer to Dr. Anne. Continue with antihypertensives once medication reconciliation has been done. 5. Hyperlipidemia. Will continue statin therapy. 6. Hiatal hernia and reflux. Consider tapering doses of proton pump inhibitor as these long-term have been implicated in renal problems. Would discontinue Carafate as it contains some amounts of aluminum which is not recommended in endstage renal disease patients. cc: MD Eugenie Laird MD
[2018-09-16 06:39] LABS: TSH 1.46 uIUmL (0.27-4.20)
[2018-09-16] MEDS ORDERED: NS 2,000 ML MISC PRN (06:39)
[2018-09-16] MEDS ORDERED: TIGHT: 0.2 ML/HR FOR DIALYSIS MISC PRN (06:39)
[2018-09-16] MEDS ORDERED: HEPARIN IV PRN (06:39)
[2018-09-16] MEDS: HUMALOG SUBQ SCH ×4 (07:00→22:26)
--- NOTE | 2018-09-16 07:41 | EKG Report ---
Test Performed on : 09/15/2018 9:34:55 PM Test Reason : SOB Blood Pressure : / mmHG Vent. Rate : 091 BPM Atrial Rate : 091 BPM P-R Int : 128 ms QRS Dur : 106 ms QT Int : 376 ms P-R-T Axes : 038 -25 188 degrees QTc Int : 462 ms Normal sinus rhythm. Incomplete left bundle branch block ST & T wave abnormality, consider inferolateral ischemia Abnormal ECG When compared with ECG of 28-JUL-2018 14:00, No significant change was found Unconfirmed Result
[2018-09-16] MEDS: HEPARIN SUBQ SCH ×2 (09:00→22:25)
[2018-09-16] MEDS: LASIX IV SCH ×2 (09:00→22:26)
[2018-09-16] MEDS: DUONEB (A & A) INH SCH ×4 (10:00→22:00)
[2018-09-16 10:49] LABS: BASO# 0.01 X1000 (0.0-0.2); BASO% 0.1 % (0.0-0.8); EOS# 0.05 X1000 (0.0-0.7); EOS% 0.6 % (0.0-10.0); HEMATOCRIT 24.2 % (37.0-47.0); HEMOGLOBIN 7.6 g/dL (12.0-16.0); IMM GRAN# 0.02 X1000 (0.0-0.04); IMM GRAN% 0.2 % (0.0-0.5); LYMPH# 2.13 X1000 (1.2-3.4); LYMPH% 25.4 % (20.5-51.1); MCHC 31.4 g/dL (33-37); MCV 98.8 FL (81-99); MONO# 0.46 X1000 (0.11-0.59); MONO% 5.5 % (1.7-9.3); MPV 10.6 FL (7.4-10.4); NEUT# 5.73 X1000 (1.4-6.5); NEUT% 68.2 % (42.2-75.2); PLT 242 X1000 (130-400); RBC 2.45 XMIL (4.2-5.4); RDW 14.6 % (11.5-14.5)
[2018-09-16 11:06] LABS: CALCIUM 9.9 mg/dL (8.8-10.2); CREATININE 4.6 mg/dL (0.5-0.9); POTASSIUM 4.5 mmol/L (3.5-5.1)
[2018-09-16 11:08] LABS: HEMOGLOBIN A1C 6.1 % (4.8-6.0)
--- NOTE | 2018-09-16 14:58 | NEPHROLOGY CONSULTATION ---
DATE: 09/16/2018 REASON FOR ADMISSION: Increased work of breathing. REASON FOR CONSULT: End-stage renal disease with assistance with medical management with fluid volume overload. CONSULTING PHYSICIAN: Dr. Cavanaugh. HISTORY OF PRESENT ILLNESS: Ms. Hinojosa is a 77-year-old white female who is known to our outpatient services for hemodialysis on Thursday, , Thursday. The patient had a procedure that was to be performed in [place] for her glaucoma on Thursday. Subsequently, she dialyzed on Thursday with exception that she was to watch her fluid intake and to arrive for her dialysis treatment today at outpatient. She stated that after her surgery on Thursday she started in with increased work of breathing. Over the last 2 nights it became worse. She complains of a 2-day history of abdominal fullness and swelling. She does deny any increased lower extremity swelling. She denies any chest pain. No increased cough. No fever or chills. No nausea, vomiting. No diarrhea. She denies any polyuria, polydipsia, hematochezia, hemoptysis, or hematuria. She did have plugs put into her right eye a few days ago, on Thursday. Otherwise, she has no complaints of fall, rashes, or lesions. PAST MEDICAL HISTORY: Positive for end-stage renal disease with hemodialysis on Thursday, , Thursday at the [facility]. She has history of hypertension, diabetes mellitus type 2, hyperlipidemia, history of reflux disease, anemia of chronic disease, osteodystrophy of chronic disease. PREVIOUS SURGICAL HISTORY: She has had a dialysis tunneled catheter placement to the right chest wall. She has recently had glaucoma repair with plugs to her right eye. SOCIAL HISTORY: She is . She lives with her . She denies any tobacco, alcohol, or illicit drug use. ALLERGIES: Listed as no known drug allergies. HOME MEDICATIONS: Have yet to be reconciled. FAMILY HISTORY: Noncontributory. REVIEW OF SYSTEMS: Times 10 with pertinent positives listed above in the HPI. VITAL SIGNS: The patient's most recent vital signs, her last temperature 97.9, pressure 131/60, heart rate 96, respirations are 19. She is currently on 2 L nasal cannula. Last recorded saturation is 96%. She had 0 recorded in or out this a.m.. LABS: Her sodium is 134, potassium 4.5, chloride 94, CO2 23, BUN 41, creatinine 4.6, glucose is 172. Her anion gap is 17, calcium is 9.9. She had a previous albumin of 3.6. She had an anemia workup. Iron is slightly low at 28 with a total saturation not recorded, though she does have a ferritin of 2,268. The patient's most recent white count 8.4, hemoglobin 7.6, hematocrit 24.2, with a platelet count of 242,000. She had a BNP of greater than 35,000. TSH 1.46. PT 14.8, INR 1.07, PTT of 35.2. PHYSICAL EXAMINATION: General: This is a 77-year-old white female resting quietly in bed. She appears in no acute distress. Skin: Warm and dry. HEENT: Normocephalic, atraumatic. Conjunctiva is pale. She has KAYLIE. Right eye is slightly slow to response. Neck: Supple. Trachea midline. No evidence of JVD. Cardiovascular: She is regular rate and rhythm. She has no appreciable murmur or gallop. Lungs: Have bibasilar crackles to the posterior bases. She remains on O2. Abdomen: Slightly distended, soft, nontender. Positive bowel sounds. Genitourinary: Not inspected. Patient still voids with dialysis assist. Extremities: Have no edema. No clubbing or cyanosis. Neurological: She is alert and oriented x3. ASSESSMENT AND PLAN: 1. Chronic kidney disease stage 5D. The patient is need of dialysis. She has not dialyzed in 4 days. She is in fluid volume overload. We will place her on a 2 K bath. She is to dialyze for 3.5 hours. We will attempt to challenge patient's last dry weight. 2. Electrolytes and acid-base balance. These are acceptable. 3. Anemia. This is low but stable. She has had an anemia workup ordered. Several of these are still pending. May need to start on her Epogen injections during her hospital stay. 4. Fluid volume overload. Again, with dialysis assist. I would like to thank you for allowing us to follow with this patient. Dictated by KEO Nino for Jostin Anne MD Face to face encounter, data reviewed, discussed with Shae Byrnes on 09/17/18. I agree with the above assessment and plan of care. cc: KOE Nino MD MTDD
[2018-09-16] MEDS: LOPRESSOR PO SCH (22:26)
[2018-09-16] MEDS: LIPITOR PO SCH (22:26)
[2018-09-17] MEDS: DUONEB (A & A) INH SCH ×4 (04:12→21:16)
[2018-09-17 06:19] LABS: CALCIUM 9.8 mg/dL (8.8-10.2); CREATININE 3.5 mg/dL (0.5-0.9); POTASSIUM 3.7 mmol/L (3.5-5.1)
[2018-09-17 06:26] LABS: HEMATOCRIT 24.8 % (37.0-47.0); HEMOGLOBIN 7.9 g/dL (12.0-16.0); MCH 31.7 PG (27-31); MCHC 31.9 g/dL (33-37); MCV 99.6 FL (81-99); MPV 10.8 FL (7.4-10.4); RBC 2.49 XMIL (4.2-5.4); RDW 14.4 % (11.5-14.5); WBC 8.63 X1000 (4.8-10.8)
[2018-09-17] MEDS: HUMALOG SUBQ SCH ×4 (06:40→21:27)
--- NOTE | 2018-09-17 08:08 | Diag Imaging Result Doc PS360 ---
EXAM: CHEST-2 VIEWS HISTORY: CHF pleural effusion TECHNIQUE: Chest two views COMPARISON: 09/15/2018 FINDINGS: The lungs are hyperexpanded. There are small bilateral pleural effusions with basilar atelectasis versus tiny infiltrates. No cardiomegaly. No pulmonary edema. No change in the right jugular line. No pneumothorax. IMPRESSION: Stable chest Electronically signed by Sekou Traylor 09/17/2018 8:06 AM
[2018-09-17] MEDS: LASIX IV SCH ×2 (09:01→21:27)
[2018-09-17] MEDS: LOPRESSOR PO SCH ×2 (09:01→21:26)
[2018-09-17] MEDS: ASPIRIN PO SCH (09:01)
[2018-09-17] MEDS: HEPARIN SUBQ SCH ×2 (09:01→21:27)
[2018-09-17] MEDS: LEVEMIR SUBQ SCH (09:01)
[2018-09-17] MEDS: IMDUR PO SCH (09:01)
[2018-09-17] MEDS: PROTONIX PO SCH (09:01)
[2018-09-17] MEDS ORDERED: INSULIN PEN NEEDLES ONE (09:06)
--- NOTE | 2018-09-17 11:33 | PROGRESS NOTE ---
DATE: 09/17/2018 SUBJECTIVE: The patient states that she had an episode of severe shortness of breath last night. She received 80 mg of Lasix and stated that she started to feel better once she started to urinate. Otherwise, she states that she still feels a little short of breath. OBJECTIVE: Vital Signs: Temperature 97.8 degrees, blood pressure 137/71, heart rate 104, respirations 19, O2 saturation 96% on 2 L nasal cannula. Intake 120, output 400 mL. General: This is a chronically ill-appearing elderly female lying in bed in no acute distress. Heart: S1, S2 normal. Regular, tachycardic. Lungs: Equal air entry bilaterally. Diminished breath sounds at the bases. Abdomen: Positive bowel sounds. Soft, nontender, nondistended. Extremities: No edema, no cyanosis. Neurologic: The patient is alert and oriented x4. LABORATORY DATA: White blood cell count 8.6, hemoglobin 7.9, hematocrit 24, platelets 270,000. Sodium 136, potassium 3.7, chloride 95, CO2 25, BUN 24, creatinine 3.5, glucose 177, calcium 9.8. Chest x-ray shows small bilateral pleural effusions with basilar atelectasis. No pulmonary edema noted. ASSESSMENT AND PLAN: 1. Volume overload. This appears to have improved on imaging and on physical exam. The patient is currently on 2 L nasal cannula. She is also on IV lasix. Will attempt to wean her off of the supplemental oxygen. 2. End stage renal disease. Management as per the building construction professor. 3. Diabetes mellitus type 2. Continue with Humalog sliding scale. 4. Hypertension. Continue on Lopressor and Imdur. 5. Chronic systolic congestive heart failure. Aware. 6. Coronary artery disease. The patient states that she is scheduled to follow up with Dr. Jacinto to undergo a left heart catheterization. 7. Will consult physical therapy. cc: Kesha Velasquez MD [facility]
--- NOTE | 2018-09-17 15:33 | NEPHROLOGY PROGRESS NOTE ---
DATE: 09/17/2018 SUBJECTIVE: She had another episode of shortness of breath in the early hours of the morning that awakened her. None now, and she is ambulatory without difficulty. She states she has good urine output. She is on no supplemental oxygen today. OBJECTIVE: Vital Signs: Blood pressure 137/71, heart rate 104, respirations 17, afebrile. Physical Examination: General: No acute distress. Skin: Warm and dry. Neck: Veins are not distended. Heart: Regular. Lungs: Equal. No crackles. Abdomen: Soft, nontender. Bowel sounds present. Extremities: No edema, clubbing or cyanosis. IMPRESSION: Chronic kidney disease 5b. She will have her next routine hemodialysis treatment tomorrow. She appears euvolemic on exam, despite her episode. Her chest x-ray is non impressive. We will challenge her dry weight again in the morning. cc: Jostin Anne MD
[2018-09-17] MEDS: LIPITOR PO SCH (21:26)
[2018-09-18] MEDS: DUONEB (A & A) INH SCH (03:18)
[2018-09-18] MEDS: HUMALOG SUBQ SCH ×2 (06:20→12:18)
[2018-09-18] MEDS: HEPARIN SUBQ SCH (08:22)
[2018-09-18] MEDS: LOPRESSOR PO SCH (08:22)
[2018-09-18] MEDS: LASIX IV SCH (08:22)
[2018-09-18] MEDS: IMDUR PO SCH (08:22)
[2018-09-18] MEDS: ASPIRIN PO SCH (08:22)
[2018-09-18] MEDS: LEVEMIR SUBQ SCH (08:22)
[2018-09-18] MEDS: PROTONIX PO SCH (08:22)
[2018-09-18] MEDS ORDERED: HEPARIN IV PRN (09:09)
[2018-09-18] MEDS ORDERED: NS 2,000 ML MISC PRN (09:09)
[2018-09-18 09:10] VITALS: BP 141/71
--- NOTE | 2018-09-18 17:43 | NEPHROLOGY PROGRESS NOTE ---
DATE: 09/18/2018 SUBJECTIVE: She is currently on dialysis. She had another episode of shortness of breath that awakened her from sleep. No symptoms at this time. She has been able to eat well without difficulty. OBJECTIVE: Vital Signs: Blood pressure 141/71, heart rate 100, respirations 17, afebrile. She is currently on dialysis. General: No acute distress. Skin: Warm and dry. Eyes: Conjunctivae are pink. Neck: Neck veins are not visible. Heart: Regular. No gallops. Lungs: Equal. No crackles or wheezes. Abdomen: Soft, nontender. Bowel sounds present. Extremities: No edema, clubbing or cyanosis. IMPRESSION: 1. Chronic kidney disease 5 D. Continue hemodialysis as ordered. 2. Electrolytes, acid-base, in target. 3. Episodic shortness of breath. She appears euvolemic on exam. She has plans to see her structurer in [place] for possible catheterization and angioplasty if appropriate. Okay for discharge from my perspective. cc: Jostin Anne MD
--- NOTE | 2018-09-22 10:15 | DISCHARGE SUMMARY ---
ADMISSION DATE: 09/16/2018 DISCHARGE DATE: 09/18/2018 FINAL DISCHARGE DIAGNOSES: 1. Volume overload. 2. Coronary artery disease. 3. End stage renal disease on hemodialysis 4. Diabetes mellitus type 2. 5. Hypertension. 6. Chronic systolic congestive heart failure. 7. Anemia of chronic disease. CONSULTATIONS: Nephrology consultation with Dr. Anne. IMAGING: Chest x-ray which revealed small bilateral pleural effusions with basilar atelectasis. HOSPITAL COURSE: Ms. Hinojosa is a 77-year-old female with a history of coronary artery disease, end- stage renal disease, hypertension, anemia of chronic disease, who presented to the ER with increasing shortness of breath as well as orthopnea. On admission, a chest x- ray was done that showed pulmonary edema with bilateral pleural effusion. The patient was admitted to the hospitalist service and Nephrology was consulted for continuation of the patient's dialysis treatments. The patient was taken for hemodialysis the following morning. Following the dialysis session, the patient stated that she felt a lot better and she was not complaining of shortness of breath. Over the course of the hospitalization, the patient had episodes of orthopnea. However, her imaging and physical examination did not support volume overload. She denied having chest pain. She was also assessed for home oxygen, and she did not qualify for home oxygen. The patient was dialyzed again on Thursday and stated that she felt better. The patient states that she is scheduled to follow up with Dr. Jacinto to undergo heart catheterization. The patient continued to improve clinically and was cleared for discharge home. DISCHARGE MEDICATIONS: 1. Norvasc/benazepril 1 tablet oral daily. 2. Aspirin 81 mg p.o. daily. 3. Lipitor 40 mg p.o. at bedtime. 4. Lasix 40 mg p.o. daily. 5. Humalog use as directed. 6. Levemir 15 units subcutaneous daily. 7. Imdur 30 mg p.o. daily. 8. Lopressor 25 mg p.o. every 12 hours. 9. Protonix 40 mg p.o. daily. 10. Ofloxacin eye drops twice a day. DISCHARGE DIET: Renal diet. Low-sodium diet. ACTIVITY: As tolerated. FOLLOWUP INSTRUCTIONS: The patient has been advised to follow up with Dr. Jacinto as scheduled to discuss her upcoming heart catheterization. The patient will also follow up as scheduled for her routine dialysis 3 times a week. Juan#: [id number] cc: Kesha Velasquez MD MTDD
== END 2018-09-18 14:48 | disposition home health service (06) | DRG 640 ==
LOC: ED 21:21 → SUATTDRO 09-16 05:11 → EDIPHOLD 09-16 05:11 → 3S 09-16 22:08
PROVIDERS: ATTEND Internal Medicine
CPT/HCPCS: 71020; 71046; 80048; 80053; 82550; 82607; 82728; 82746; 82948; 83036; 83540; 83880; 84100; 84443; 84484; 85025; 85027; 85045; 85610; 85730; 93005; 94640; 94761; 96374; 96376; 97161; 99285; A9270; J1644; J1815; J1940; J7030; XXXXX

== ENCOUNTER 2019-05-09 09:20 | Inpatient (IN) ==
--- NOTE | 2019-05-09 09:43 | Diag Imaging Result Doc PS360 ---
CT HEAD W/O CONTRAST - 05/09/2019 INDICATION: sudden loss of vision, AMS COMPARISON: None FINDINGS: There are extensive bilateral hypodensities in the cerebral hemispheres, mainly in the posterior portions at the parietal-occipital lobes. These involve the cortex and all the subcortical matter. In addition, there are some scattered hyperdensities of the cortex that appear likely to be calcification. No mass effect. No evidence of intracranial hemorrhage. There is some sort of surgical prosthesis at the posterior right thigh. There is extremely severe vascular calcification of the carotid siphons bilaterally. There is dense opacification of the sphenoid sinuses compatible with chronic sinusitis. Other sinuses are clear. IMPRESSION: 1. Large bilateral hypodensities in the posterior cerebral lobes. These may represent infarctions. These are clearly subacute or chronic. 2. Cortical based hypodensities/calcifications posteriorly likely represent cortical scarring such as laminar cortical necrosis. 3. Significant sinusitis. 4. Brain MRI is recommended, preferably without and with intravenous contrast. This exam was performed using automated exposure control, adjustment of mA or kV according to patient size, and/or use of iterative reconstruction technique Electronically signed by Eddie Mcfarland 05/09/2019 9:40 AM
--- NOTE | 2019-05-09 10:11 | Diag Imaging Result Doc PS360 ---
EXAM: CHEST-PORTABLE 05/09/2019 HISTORY: AMS TECHNIQUE: AP portable at 0952 COMMENT: There is blunting of both costophrenic angles as there was on 02/24/2019. The inspiration is less optimal. There is some platelike atelectasis in the left lower lobe. The heart size is enlarged. There are sternotomy wires. There is a double-lumen right internal jugular catheter with its tip in the superior vena cava. IMPRESSION: The possibility of mild pulmonary edema cannot be excluded. Left lower lobe atelectasis. Bilateral pleural effusions. Electronically signed by Peter Lares 05/09/2019 10:08 AM
[2019-05-09 10:27] LABS: ALLEN TEST YES; BE -9.4 mmoll (-3.0-3.0); BLOOD TYPE ARTERIAL; HCO3-(ACT) 17.6 mmoll (20.0-26.0); METHB 0.1 % (0.0-1.5); O2(CT) 18.6 mL/dL (15.0-23.0); O2HB 96.6 % (95.0-99.0); PCO2(98.6) 35 mmHg (35-45); PO2(98.6) 123 mmHg (60-100); SAMPLE BLOOD; SAO2 97.5 % (95.0-100.0); THB 13.6 g/dL (11.5-17.4); pH(98.6) 7.28 (7.35-7.45)
[2019-05-09 10:29] LABS: MODALITY CANNULA
[2019-05-09 10:38] LABS: BASO# 0.03 X1000 (0.0-0.2); BASO% 0.4 % (0.0-0.8); EOS# 0.15 X1000 (0.0-0.7); EOS% 1.9 % (0.0-10.0); HEMATOCRIT 41.6 % (37.0-47.0); HEMOGLOBIN 13.3 g/dL (12.0-16.0); IMM GRAN# 0.03 X1000 (0.0-0.04); IMM GRAN% 0.4 % (0.0-0.5); LYMPH# 1.78 X1000 (1.2-3.4); LYMPH% 23.1 % (20.5-51.1); MCH 30.3 PG (27-31); MCV 94.8 FL (81-99); MONO# 0.94 X1000 (0.11-0.59); MONO% 12.2 % (1.7-9.3); MPV 10.9 FL (7.4-10.4); NEUT# 4.77 X1000 (1.4-6.5); PLT 269 X1000 (130-400); RBC 4.39 XMIL (4.2-5.4); RDW 20.1 % (11.5-14.5)
[2019-05-09 10:40] LABS: INR 1.64; PROTIME 19.7 Seconds (11.0-16.0); PTT 28.6 Seconds (22.3-41.8)
[2019-05-09 10:51] LABS: BANDS 1 % (0-1); EOS 1 % (1-10); LYMPHS 14 % (21-51); MONO 10 % (1-9); SEGS 74 % (42-75)
[2019-05-09 11:02] LABS: ALB/GLOB RATIO 1.9; ALBUMIN 4.1 g/dL (3.5-5.0); CALCIUM 10.3 mg/dL (8.8-10.2); CREATININE 6.1 mg/dL (0.5-0.9); POTASSIUM 5.8 mmol/L (3.5-5.1); TOTAL BILIRUBIN 0.89 mg/dL (0.20-1.00); TOTAL PROTEIN 6.3 g/dL (6.3-8.3)
[2019-05-09 11:48] LABS: URINE SOURCE CATH
--- NOTE | 2019-05-09 11:49 | Diag Imaging Result Doc PS360 ---
MRI BRAIN W/O CONTRAST - 05/09/2019 INDICATION: possible cva COMPARISON: 08/04/2018 FINDINGS: There is no area of restricted diffusion. There is rather severe patient motion artifact. There are large areas of old encephalomalacia in both parietal-occipital lobes. No intracranial mass or hemorrhage. There is significant cortical-based T1 hyperintensity in the affected regions on the prior exam, conforming to the hyperdensities visible on the head CT. These probably represent areas of old laminar cortical necrosis with hemosiderin staining. No midline shift. There is mild to moderate deep cerebral white matter chronic microvascular ischemia as well. IMPRESSION: Extensive chronic appearing changes as described above. No restricted diffusion or acute process. Electronically signed by Eddie Mcfarland 05/09/2019 11:46 AM
[2019-05-09 11:55] LABS: BILIRUBIN URINE NEGATIVE (NEGATIVE); BLOOD URINE TRACE (NEGATIVE); COLOR YELLOW; GLUCOSE URINE 100 mg/dL (NEGATIVE); KETONE URINE NEGATIVE (NEGATIVE); LEUKOCYTES URINE NEGATIVE (NEGATIVE); NITRITE URINE NEGATIVE (NEGATIVE); PROTEIN URINE 300 mg/dL (NEGATIVE); SP GRAVITY URINE 1.016; TURBIDITY URINE CLEAR (CLEAR); UROBILINOGEN URINE NORMAL (NORMAL)
[2019-05-09 11:56] LABS: UR EPITHELIAL CELLS <10 /HPF (<10); URINE BACTERIA NEGATIVE /HPF; URINE RBC <10 /HPF (<10); URINE WBC <10 /HPF (<10)
--- NOTE | 2019-05-09 12:10 | EKG Report ---
Test Performed on : 05/09/2019 11:14:37 AM Test Reason : AMS Blood Pressure : / mmHG Vent. Rate : 087 BPM Atrial Rate : 087 BPM P-R Int : 154 ms QRS Dur : 112 ms QT Int : 418 ms P-R-T Axes : 075 -77 107 degrees QTc Int : 502 ms Sinus rhythm. with occasional premature ventricular complexes. Possible Left atrial enlargement Left axis deviation Incomplete right bundle branch block Septal infarct , age undetermined Abnormal ECG When compared with ECG of 25-FEB-2019 02:04, premature ventricular complexes. are now present Incomplete right bundle branch block is now present Unconfirmed Result
--- NOTE | 2019-05-09 12:12 | PROVIDER DOCUMENTATION ---
This chart was entered by Sobeida Jean Scribe, acting as scribe for Deion Phillips MD. HPI-Neurological Disorder - General Chief Complaint: Altered Mental Status Stated Complaint: SUDDEN LOSS OF VISION / AMS Time Seen by Provider: 05/09/19 09:26 Source: EMS Allergies/Adverse Reactions: Patient Allergies Allergy/AdvReac Type Severity Reaction Status Date / Time influenza virus vaccine ts Allergy Intermediate NAUSEA/VOMI Verified 03/23/19 13:06 [id number] (36 mos,up) TING [From Fluarix] pneumococcal vaccine Allergy Intermediate NAUSEA/VOMI Verified 03/23/19 13:06 TING Home Medications: Home Medication List Medication Instructions Recorded Confirmed Last Taken Type Furosemide [Lasix] 40 mg PO DAILY 12/17/17 03/23/19 03/22/19 18:00 History 40 Insulin Lispro [Humalog] 1 unit SQ PRN PRN 12/17/17 03/23/19 03/21/19 History 1 Pantoprazole Sodium [Protonix] 40 mg PO DAILY 12/17/17 03/23/19 03/22/19 07:00 History 40 Insulin Detemir [Levemir Flextouch] 15 unit SQ DAILY 07/28/18 03/23/19 03/22/19 07:00 History 15 Carvedilol 0.5 tab PO BID 01/20/19 03/23/19 03/23/19 07:30 History 0.5 Docusate Sodium 200 mg PO DAILY 01/20/19 03/23/19 03/21/19 History 200 LISINOpril [Prinivil] 10 mg PO DAILY 01/20/19 03/23/19 03/23/19 07:30 History 10 Magnesium Oxide [Magnesium] 400 mg PO DAILY 01/20/19 03/23/19 03/22/19 07:00 History 400 Simethicone [Gas-X] 125 mg PO PRN PRN 01/20/19 03/23/19 03/22/19 18:00 History 125 Vit B Complx C/Folic Acid/Zinc 0.8 mg PO DAILY 01/20/19 03/23/19 03/22/19 07:00 History [Dialyvite 800-Zinc 50 mg Tab] 0.8 Aspirin 81 mg PO DAILY 01/26/19 03/23/19 03/22/19 18:00 History 81 Dorzolamide HCl/Timolol Maleat 1 drp OPHTHALMIC (EYE) BID 01/26/19 03/23/19 03/23/19 07:00 History [Cosopt Eye Drops] 1 ROSUVAstatin [Crestor] 10 mg PO DAILY 01/26/19 03/23/19 03/22/19 18:00 History 10 - History of Present Illness-Neuro Nature of Presenting Problem: Patient is a 78 year old female who presents to the ED via EMS with vision loss and becoming non verbal. EMS states symptoms started 30 minutes prior to arrival. History of CVAs. Severity: reports: mild Onset/Duration: reports: other (30 minutes prior to arrival) Timing: reports: still present Context: reports: impaired speech (non verbal), other (vision loss) Character of Deficits: reports: vision problem/glaucoma (vision loss), impaired speech (non verbal) Similar Symptoms Previously?: No Recently seen or treated by another doctor?: No Review of Systems - Adult - REVIEW OF SYSTEMS - ADULT ROS:: unobtainable per condition Constitutional: reports: no symptoms reported Eyes: reports: no symptoms reported Ears, Nose, Mouth & Throat: reports: no symptoms reported Cardiovascular: reports: no symptoms reported Respiratory: reports: no symptoms reported Gastrointestinal: reports: no symptoms reported Genitourinary: reports: no symptoms reported Musculoskeletal: reports: no symptoms reported Integumentary: reports: no symptoms reported Neurological: reports: no symptoms reported Psychiatric: reports: no symptoms reported Endocrine: reports: no symptoms reported Hematologic/Lymphatic: reports: no symptoms reported Allergic/Immunologic: reports: no symptoms reported All Other Systems: Reviewed and Negative Past History - Adult - PAST MEDICAL HISTORY-ADULT Review of Records: reports: Old Records Reviewed, Nursing Assessment Review, Medications Reviewed, Social history reviewed & non-contributory. Major Childhood Illnesses: reports: denies history Cardiovascular: reports: HTN Respiratory: reports: denies history Gastrointestinal: reports: denies history Obstetrical/Gynecological: reports: denies history Genitourinary: reports: dialysis, kidney disease Musculoskeletal: reports: denies history Neurological: reports: CVA Psychiatric: reports: denies history Endocrine/Immune: reports: Diabetes Other Conditions: reports: denies history - PRIOR SURGERIES/PROCEDURES Surgical/Procedure History: reports: recent surgery (11/25/18), CABG, other (aortic replacement) - IMMUNIZATION STATUS Childhood Immunizations: See Nurse Assessment Flu Vaccine: See Nurse Assessment - FAMILY HISTORY Family History: reviewed, not pertinent - SOCIAL HISTORY Smoking: non-smoker Physical Exam- Neurological - Physical Exam-Neuro Initial Vital Signs Reviewed: Yes General Appearance: alert, other (non verbal). negative: obtunded HENMT: normocephalic/atraumatic. negative: angioedema Head Injury: no evidence of injury. negative: active bleeding, lacerations Respiratory: chest non-tender, lungs clear, normal breath sounds. negative: crackles, stridor Cardiovascular: normal peripheral pulses, regular rate, rhythm. negative: tachycardia Abdominal Exam: normal bowel sounds, non tender, soft. 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 negative: laceration(s) Psych/Mental Status: other (unable to assess per patient's condition) Progress - PLAN OF CARE/RESULTS Progress/Plan/Lab Results: Vital Signs - 8 hr 05/09/19 09:38 05/09/19 10:20 Temperature 97.6 F Pulse Rate 88 Respiratory Rate 16 Blood Pressure 141/86 O2 Sat by Pulse Oximetry 93 L 99 Laboratory Results - last 24 hr 05/09/19 05/09/19 05/09/19 09:47 10:12 10:12 WBC 7.70 RBC 4.39 Hgb 13.3 Hct 41.6 MCV 94.8 MCH 30.3 MCHC 32.0 L RDW Std Deviation 20.1 H Plt Count 269 MPV 10.9 H Immature Gran % (Auto) 0.4 Neut % (Auto) 62.0 Lymph % (Auto) 23.1 Jenkins % (Auto) 12.2 H Eos % (Auto) 1.9 Baso % (Auto) 0.4 Immature Gran # (Auto) 0.03 Neut # (Auto) 4.77 Lymph # (Auto) 1.78 Jenkins # (Auto) 0.94 H Eos # (Auto) 0.15 Baso # (Auto) 0.03 Segmented Neutrophils 74 Band Neutrophils 1 Lymphocytes 14 L Monocytes 10 H Eosinophils 1 PT INR PTT (Actin FS) Specimen Type Sample Site pH pCO2 pO2 HCO3 Base Excess Oxyhemoglobin ABG O2 Sat (Calculated) ABG O2 Saturation ABG Carboxyhemoglobin ABG Methemoglobin Nicolas Test A-a O2 Difference Total Hemoglobin Lactate Liter Flow Blood Gas Modality FiO2 % Sodium Potassium Chloride Carbon Dioxide Anion Gap BUN Creatinine Estimated GFR/1.73 m2 BUN/Creatinine Ratio Glucose POC Glucose 232 H D Calculated Osmolality Calcium Total Bilirubin AST ALT Alkaline Phosphatase Creatine Kinase Troponin T Total Protein Albumin Globulin Albumin/Globulin Ratio Plasma Lactate Urine Source Urine Color Urine Turbidity Urine pH Ur Specific [place] Urine Protein Ur Glucose (Stick) Ur Ketones (Stick) Urine Blood Urine Nitrite Urine Bilirubin Urobilinogen Dipstick Urine Leukocytes Urine WBC (Auto) Urine RBC (Auto) U Epithel Cells (Auto) Urine Bacteria (Auto) Plasma/Serum Ethyl Alc 05/09/19 05/09/19 05/09/19 10:12 10:12 10:12 WBC RBC Hgb Hct MCV MCH MCHC RDW Std Deviation Plt Count MPV Immature Gran % (Auto) Neut % (Auto) Lymph % (Auto) Jenkins % (Auto) Eos % (Auto) Baso % (Auto) Immature Gran # (Auto) Neut # (Auto) Lymph # (Auto) Jenkins # (Auto) Eos # (Auto) Baso # (Auto) Segmented Neutrophils Band Neutrophils Lymphocytes Monocytes Eosinophils PT 19.7 H INR 1.64 PTT (Actin FS) 28.6 Specimen Type Sample Site pH pCO2 pO2 HCO3 Base Excess Oxyhemoglobin ABG O2 Sat (Calculated) ABG O2 Saturation ABG Carboxyhemoglobin ABG Methemoglobin Nicolas Test A-a O2 Difference Total Hemoglobin Lactate Liter Flow Blood Gas Modality FiO2 % Sodium 139 Potassium 5.8 H Chloride 95 L Carbon Dioxide 18 L Anion Gap 26 BUN 56 H Creatinine 6.1 H Estimated GFR/1.73 m2 7 BUN/Creatinine Ratio 9 Glucose 224 H POC Glucose Calculated Osmolality 300 Calcium 10.3 H Total Bilirubin 0.89 AST 36 H ALT 40 H Alkaline Phosphatase 114 H Creatine Kinase 35 Troponin T Total Protein 6.3 Albumin 4.1 Globulin 2.2 Albumin/Globulin Ratio 1.9 Plasma Lactate 4.8 H* Urine Source Urine Color Urine Turbidity Urine pH Ur Specific [place] Urine Protein Ur Glucose (Stick) Ur Ketones (Stick) Urine Blood Urine Nitrite Urine Bilirubin Urobilinogen Dipstick Urine Leukocytes Urine WBC (Auto) Urine RBC (Auto) U Epithel Cells (Auto) Urine Bacteria (Auto) Plasma/Serum Ethyl Alc 05/09/19 05/09/19 05/09/19 10:12 10:18 11:19 WBC RBC Hgb Hct MCV MCH MCHC RDW Std Deviation Plt Count MPV Immature Gran % (Auto) Neut % (Auto) Lymph % (Auto) Jenkins % (Auto) Eos % (Auto) Baso % (Auto) Immature Gran # (Auto) Neut # (Auto) Lymph # (Auto) Jenkins # (Auto) Eos # (Auto) Baso # (Auto) Segmented Neutrophils Band Neutrophils Lymphocytes Monocytes Eosinophils PT INR PTT (Actin FS) Specimen Type ARTERIAL Sample Site R RADIAL pH 7.28 L pCO2 35 pO2 123 H HCO3 17.6 L Base Excess -9.4 L Oxyhemoglobin 96.6 ABG O2 Sat (Calculated) 18.6 ABG O2 Saturation 97.5 ABG Carboxyhemoglobin 0.90 ABG Methemoglobin 0.1 Nicolas Test YES A-a O2 Difference 61.0 Total Hemoglobin 13.6 Lactate 5.20 H* Liter Flow 3.0 Blood Gas Modality CANNULA FiO2 % 32.0 Sodium Potassium Chloride Carbon Dioxide Anion Gap BUN Creatinine Estimated GFR/1.73 m2 BUN/Creatinine Ratio Glucose POC Glucose 200 H Calculated Osmolality Calcium Total Bilirubin AST ALT Alkaline Phosphatase Creatine Kinase Troponin T 0.076 Total Protein Albumin Globulin Albumin/Globulin Ratio Plasma Lactate Urine Source Urine Color Urine Turbidity Urine pH Ur Specific [place] Urine Protein Ur Glucose (Stick) Ur Ketones (Stick) Urine Blood Urine Nitrite Urine Bilirubin Urobilinogen Dipstick Urine Leukocytes Urine WBC (Auto) Urine RBC (Auto) U Epithel Cells (Auto) Urine Bacteria (Auto) Plasma/Serum Ethyl Alc 05/09/19 11:40 WBC RBC Hgb Hct MCV MCH MCHC RDW Std Deviation Plt Count MPV Immature Gran % (Auto) Neut % (Auto) Lymph % (Auto) Jenkins % (Auto) Eos % (Auto) Baso % (Auto) Immature Gran # (Auto) Neut # (Auto) Lymph # (Auto) Jenkins # (Auto) Eos # (Auto) Baso # (Auto) Segmented Neutrophils Band Neutrophils Lymphocytes Monocytes Eosinophils PT INR PTT (Actin FS) Specimen Type Sample Site pH pCO2 pO2 HCO3 Base Excess Oxyhemoglobin ABG O2 Sat (Calculated) ABG O2 Saturation ABG Carboxyhemoglobin ABG Methemoglobin Nicolas Test A-a O2 Difference Total Hemoglobin Lactate Liter Flow Blood Gas Modality FiO2 % Sodium Potassium Chloride Carbon Dioxide Anion Gap BUN Creatinine Estimated GFR/1.73 m2 BUN/Creatinine Ratio Glucose POC Glucose Calculated Osmolality Calcium Total Bilirubin AST ALT Alkaline Phosphatase Creatine Kinase Troponin T Total Protein Albumin Globulin Albumin/Globulin Ratio Plasma Lactate Urine Source CATH Urine Color YELLOW Urine Turbidity CLEAR Urine pH 6.0 Ur Specific [place] 1.016 Urine Protein 300 A Ur Glucose (Stick) 100 A Ur Ketones (Stick) NEGATIVE Urine Blood TRACE A Urine Nitrite NEGATIVE Urine Bilirubin NEGATIVE Urobilinogen Dipstick NORMAL Urine Leukocytes NEGATIVE Urine WBC (Auto) <10 Urine RBC (Auto) <10 U Epithel Cells (Auto) <10 Urine Bacteria (Auto) NEGATIVE Plasma/Serum Ethyl Alc Orders Category Date Time Status Cardiac Monitoring DIRECTED Care 05/09/19 09:25 Active Finger Stick Blood Sugar (ED) DIRECTED Care 05/09/19 09:25 Completed Joel Cath Insertion ORDERED Care 05/09/19 11:34 Active Misc. NRSG Communication Order DIRECTED Care 05/09/19 10:31 Active Oxygen Therapy- ED Nursing DIRECTED Care 05/09/19 09:25 Active Saline Loc NOW Care 05/09/19 09:25 Active CHEST-PORTABLE [RAD] Stat Exams 05/09/19 09:[address] HEAD W/O CONTRAST [CT] Stat Exams 05/09/19 09:22 Completed MRI BRAIN W/O CONTRAST [MRI] Stat Exams 05/09/19 11:14 Completed ABG [RESP] Routine Lab 05/09/19 10:18 Completed ALCOHOL BLOOD Stat Lab 05/09/19 10:12 Completed CBC WITH ELECTRONIC DIFF [HEME] Stat Lab 05/09/19 10:12 Completed CK PROFILE [SP CHEM] Stat Lab 05/09/19 10:12 Completed COMPREHENSIVE METABOLIC PANEL [CHEM] Stat Lab 05/09/19 10:12 Completed LACTATE, PLASMA [CHEM] Stat Lab 05/09/19 10:12 Completed PROTIME WITH INR [COAG] Stat Lab 05/09/19 10:12 Completed PTT [COAG] Stat Lab 05/09/19 10:12 Completed TROPONIN T Stat Lab 05/09/19 10:12 Completed UA [URINALYSIS W/POSS RFLX CULT] [URINALYSIS] Stat Lab 05/09/19 11:40 Completed Altered Mental Status Stat Oth 05/09/19 09:24 Ordered EKG [EKG] Stat Ther 05/09/19 11:00 Ordered Pt excluded from TPA due to high PT. Result Diagrams: 05/09/19 10:12 05/09/19 10:12 - EKG 1 Time of EKG reading by physician:: 11:14 EKG Read and Signed by:: Deion Phillips EKG Interpretation (*Must complete 3 of following elements*): Abnormal Rate: 87 Rhythm: sinus rhythm with occasional premature ventricular complexes [place]: left QRS: RBB (incomplete) CT Interval: normal Comments: possible left atrial enlargement; septal infarct, age undetermined - XRAY 1 XRAY Study: Chest Impression: See EMR Report ( EXAM: CHEST-PORTABLE 05/09/2019 HISTORY: AMS TECHNIQUE: AP portable at 0952 COMMENT: There is blunting of both costophrenic angles as there was on 02/24/2019. The inspiration is less optimal. There is some platelike atelectasis in the left lower lobe. The heart size is enlarged. There are sternotomy wires. There is a double-lumen right internal jugular catheter with its tip in the superior vena cava. IMPRESSION: The possibility of mild pulmonary edema cannot be excluded. Left lower lobe atelectasis. Bilateral pleural effusions. Electronically signed by Peter Lares 05/09/2019 10:08 AM 05/09/19 1008 Interpreting Physician: Peter Lares MD Dictated Date/Time: 05/09/19 1007 cc: Deion Phillips MD; Xavi Aburto) - CT/MRI 1 CT Study: Head Impression: See EMR Report ( CT HEAD W/O CONTRAST - 05/09/2019 INDICATION: sudden loss of vision, AMS COMPARISON: None FINDINGS: There are extensive bilateral hypodensities in the cerebral hemispheres, mainly in the posterior portions at the parietal-occipital lobes. These involve the cortex and all the subcortical matter. In addition, there are some scattered hyperdensities of the cortex that appear likely to be calcification. No mass effect. No evidence of intracranial hemorrhage. There is some sort of surgical prosthesis at the posterior right thigh. There is extremely severe vascular calcification of the carotid siphons bilaterally. There is dense opacification of the sphenoid sinuses compatible with chronic sinusitis. Other sinuses are clear. IM PRESSION: 1. Large bilateral hypodensities in the posterior cerebral lobes. These may represent infarctions. These are clearly subacute or chronic. 2. Cortical based hypodensities/calcifications posteriorly likely represent cortical scarring such as laminar cortical necrosis. 3. Significant sinusitis. 4. Brain MRI is recommended, preferably without and with intravenous contrast. This exam was performed using automated exposure control, adjustment of mA or kV according to patient size, and/or use of iterative reconstruction technique Electronically signed by Eddie Mcfarland 05/09/2019 9:40 AM 05/09/19 0940 Interpreting Physician: Eddie Mcfarland MD Dictated Date/Time: 05/09/19 0935 cc: Deion Phillips MD; Xavi Aburto) 2 MRI Study: Brain Impression: See EMR Report (MRI BRAIN W/O CONTRAST - 05/09/2019 INDICATION: possible cva COMPARISON: 08/04/2018 FINDINGS: There is no area of restricted diffusion. There is rather severe patient motion artifact. There are large areas of old encephalomalacia in both parietal-occipital lobes. No intracranial mass or hemorrhage. There is significant cortical-based T1 hyperintensity in the affected regions on the prior exam, conforming to the hyperdensities visible on the head CT. These probably represent areas of old laminar cortical necrosis with hemosiderin staining. No midline shift. There is mild to moderate deep cerebral white matter chronic microvascular ischemia as well. IMPRESSION: Extensive chronic appearing changes as described above. No restricted diffusion or acute process. Electronically signed by Eddie Mcfarland 05/09/2019 11:46 AM 05/09/19 1146 Interpreting Physician: Eddie Mcfarland MD Dictated Date/Time: 05/09/19 1137 cc: Deion Phillips MD; Xavi Aburto) - CONSULTS/PCP/HOSPITALIST Notification #1 *Consult/PCP/Hospitalist*: KEO Parmar for Hospitalist Time Discussed: 12:05 Reason/Comments: Dr. Phillips consulted with Agata about patient. Consult Disposition: Will see in ED, Admit #2 Consult: Dr Goodwin Time Discussed: 11:30 Consult Disposition: Admit (advised will admit and plan to take to dialysis soon.) Departure - Departure Date of Disposition Decision: 05/09/19 Time of Disposition Decision: 12:06 DIAGNOSIS: Kidney disease, chronic, stage V (end stage, EGFR < 15 ml/min), Altered mental status, CVA (cerebral vascular accident), Sepsis, Hyperkalemia Disposition: ADMITTED INPATIENT 09 Certified Medical Emergency: Emergent Condition: Stable Referrals and Follow-Ups: Xavi Aburto [Primary Care Provider] - - Critical Care Note This patient required my direct & personal management of CC.: No Attestation - Physician/ BHAVANA Attestation Patient care was provided by Advanced Practice Provider:: No The physician spent face to face time with patient:: Yes Advanced Practice Provider documentation review:: Supervising physician onsite and consulted in the evaluation and care of this patient. The physician did have a face to face encounter with the patient. This chart was documented by the indicated scribe, (Sobeida Jean, Melissa) and accurately reflects the services I performed and decisions made by me, Deion Phillips MD, as attested by the provider's signature.
[2019-05-09 13:29] LABS: MAGNESIUM 1.8 mg/dL (1.5-2.7); PHOSPHORUS 7.8 mg/dL (2.7-4.5)
[2019-05-09] MEDS ORDERED: NS 2,000 ML MISC PRN (14:27)
[2019-05-09] MEDS ORDERED: ROCEPHIN 1 GM in NS 50 ML IV SCH (18:15)
[2019-05-09] MEDS ORDERED: ZITHROMAX PO SCH (18:15)
--- NOTE | 2019-05-09 18:20 | HISTORY AND PHYSICAL ---
CHIEF COMPLAINT: Altered mental status, sudden loss of vision and becoming nonverbal. HPI: This is a 78-year-old female with a prior history of end-stage renal disease on Thursday, , Thursday hemodialysis, systolic congestive heart failure, diabetes mellitus type 2 and hypertension. She presents to the emergency room with family members who state that the patient had a sudden onset of vision loss, became nonverbal and stopped responded to commands by her . This was the complaint per EMS on her arrival to the emergency room. At the time of my exam the patient was awake and alert, she was oriented. She spoke in full sentences. She and the stated that 2 days ago her vision left "all at once" and she has been blind since then stating that her vision suddenly returned just after I walked in the room to examine the patient. The states that over the last 48 hours he has been assisting the patient to walk and with her activities of daily living. When asked about the patient having any recent illness she did state that she has been having a lot of indigestion, stating that she morgan here pointing to her epigastric to lower sternum area, stating that it morgan real bad during the night and that she can feel acid coming up into her throat making her cough. She reports after she gets up, sits up in a chair for a while this does subside and she is able to eat. She did have an episode of vomiting Thursday. Ms Hinojosa and her report that she has been having itching over the last [address] Jacinto her commissary superintendent has been following this changing medications or holding her medications to see if he can find the culprit. In reviewing her labs, she has had an elevated phosphorus in July, September and today her phosphorus is 7.8. She is on no binders at david Of note, she missed dialysis Thursday as the said on arrival to the dialysis clinic, she just looked too sick to go in, so they went back home. PAST MEDICAL HISTORY: 1. End-stage renal disease on Thursday, , Thursday hemodialysis. 2. Diabetes mellitus type 2. 3. Hyperlipidemia. 4. Gastroesophageal reflux disease. 5. Anemia. 6. Glaucoma. 7. Systolic heart failure with an ejection fraction of 35%. 8. Prior CVA. PAST SURGICAL HISTORY: Cholecystectomy, PD catheter placement, PermCath port placement, right eye surgery. Coronary artery bypass graft with aortic valve replacement in November 2018. FAMILY HISTORY: First-degree relatives cervical cancer, heart disease and chronic kidney disease. SOCIAL HISTORY: She lives with her . Denies alcohol, tobacco, or illicit drug use. ALLERGIES: Influenza vaccine and pneumococcal vaccine cause nausea and vomiting. HOME MEDICATIONS: Aspirin, Colace, Cosopt eye drops, Levemir insulin, Humalog insulin, magnesium, Protonix, Gas-X, and Daily-[place] vitamins. REVIEW OF SYSTEMS: Discussed with patient and with pertinent positives stated in the HPI. They denied any syncope or dizziness, any chest pain or palpitations, any black or bloody vomitus or stools, any diarrhea, constipation, any shortness of breath, PND, orthopnea, any hematuria, dysuria, frequency, urgency. PHYSICAL EXAM: This is a 78-year-old female who is sitting up in the bed in no distress. VITAL SIGNS: Blood pressure is 153/80 with a heart rate of 88, respirations are 16, temperature is 97.6 degrees oral with room air saturations 98%. HEENT: Head is normocephalic, atraumatic. Mucous membranes are moist. NECK: Supple with trachea midline. CARDIOVASCULAR: Regular rate and rhythm. S1 and S2 appreciated. She has no lower extremity edema. Peripheral pulses are palpable x4 extremities. PULMONARY: Breath sounds are clear. No increased work of breathing noted. Chest rises and falls symmetric respiration. GASTROINTESTINAL: Abdomen soft, nontender, nondistended with bowel sounds in all 4 quadrants. NEUROLOGIC: She is alert, she is oriented, face, forehead is spared, she has equal nasal flaring. No tongue or uvula deviation. No facial droop. Equal shoulder shrug. She has no plantar drift. Head Batcher are equal. Muscle strength is 3/3 x4 extremities. Speech is clear. SKIN: Warm and dry. LABS: WBC is 7.7 with hemoglobin 13.3, hematocrit 41.6 and platelets of 269,000. Sodium is 139, potassium 5.8 with BUN 56, creatinine 6.1 with a glucose of 224 lactate is 4.8. ABGs, pH is 7.2 with pCO2 35, PO2 123 and bicarb of 17.6 with a lactate of 5.2. This is on 3 L nasal cannula. Urinalysis is essentially negative. Blood alcohol is 0. Blood cultures are pending. CT of the head revealed large bilateral hypodensities in the posterior cerebral lobes that may represent infarctions, they are clearly subacute or chronic, cortical base hypodensities posteriorly likely represent cortical scarring such as laminar cortical necrosis, significant sinusitis, brain MRI is recommended. Brain MRI without contrast revealed extensive chronic appearing changes with no restricted diffusion or acute processes. Chest x-ray revealed possibility of mild pulmonary edema cannot be excluded, left lower lobe atelectasis, bilateral pleural effusions. ASSESSMENT AND PLAN: 1. Chronic kidney disease stage 5 on Thursday, , Thursday hemodialysis. 2. Sinusitis. 3. Sepsis, very likely could be secondary to sinusitis as well as atelectasis. Blood cultures are pending. 4. Altered mental status has resolved. 5. History of cerebrovascular accident. 6. Hyperkalemia. 7. Diabetes mellitus type 2. PBG/SSI 8. History of systolic congestive heart failure with ejection fraction of 35%. 9. Itching. check a phosphorus and calcium as the patient has a history of elevated phosphorus and she is on no binders currently. 10. Hypertension. 11. Chronic gastroesophageal reflux disease. Carafate b.i.d. and continue PPI. The patient will be admitted to the medical floor. placed on telemetry, neuro checks every [address] Anne has been consulted. She will have hemodialysis today. identify her home medications and continue as appropriate strict I and O, daily weights. Renal diet renal profile daily. antibiotics to cover atelectasis as well as sinusitis. Order to keep the head of the bed elevated or patient to be up in the chair with meals and p.r.n. Plan was discussed with Dr. Ren. Further treatments pending hospital course. Dictated by KEO Cheek for Chito Ren MD cc: KEO Cheek MD [facility]
[2019-05-09] MEDS: RENAGEL PO SCH (18:56)
[2019-05-09] MEDS: SENSIPAR PO SCH (18:57)
--- NOTE | 2019-05-09 19:22 | NEPHROLOGY CONSULTATION ---
DATE: 05/09/2019 REASON FOR ADMISSION: Altered mental status with temporary blindness. REASON FOR CONSULTATION: Assist with medical management. CONSULTING PHYSICIAN: Dr. Phillips with Agata Lee NP. HPI: Ms Hinojosa is a 78-year-old white female who is known to our outpatient services for hemodialysis on Thursday, , Thursday. Her is at her bedside and stated that he had taken her to her actual dialysis appointment on Thursday was unable to get her out of the car secondary to her weakness. Due to that fact he had taken her home, observed her over the weekend and she was transported via EMS to [facility] this morning for weakness, loss of vision. She was nonverbal. stated that the symptoms had started 30 minutes prior to EMS arrival. She does have a history of CVAs. She is currently awake and talking complaining of Joel catheter pain. She denies chest pain. No increased work of breathing. No nausea, vomiting, or diarrhea. No fever or chills. No recent falls. No hematochezia, hemoptysis or hematuria. Joel catheter in place. Complains of pain and discomfort to the Joel catheter. Complains of hunger. PAST MEDICAL HISTORY: End-stage renal disease with hemodialysis at the [facility] on Thursday, , Thursday 2nd shift, hypertension, CVA, diabetes mellitus type 2, anemia of chronic disease, osteodystrophy of chronic disease, recent vision changes followed at [facility]. Proteinuria, iron deficiency, hyperparathyroidism and hyperlipidemia. PREVIOUS SURGICAL HISTORY: She has had a PD catheter placement, tunneled dialysis catheter placement, previous fistula placement, CABG with aortic replacement. SOCIAL HISTORY: She is . Former smoker. Denies tobacco, alcohol or illicit drug use. FAMILY HISTORY: Mother is , history of diabetes and hypertension with liver cancer. Father is history of kidney disease with dialysis. She has children who are attentive to her care. Family members attentive to her care at the bedside. ALLERGIES: Listed as influenza virus vaccine, pneumococcal vaccine. MEDICATIONS: Patient's home medications have yet to be reconciled. It appears Lasix, insulin lispro, Protonix, Levemir, FlexTouch, carvedilol, Prinivil, magnesium, Gas-X, vitamin B complex, Cosopt eye drops, Crestor, patient receives Mircera, IV iron REVIEW OF SYSTEMS: Times 10 with pertinent positives listed above in the HPI. Patient's most recent vital signs, last temperature recorded 97.6, blood pressure 148/102, heart rate 91, respirations 23, she is on room air, last recorded saturation is 100%. She has a Joel catheter in place. This has over 150 mL in the bag. LABS: Sodium 139, potassium 5.8, chloride 95, CO2 18, BUN 56, creatinine 6.1, glucose is 224, she has an anion gap of 26, calcium 10.3, phosphorus 7.8, magnesium 1.8, albumin of 4.1, plasma lactate of 4.8. White count 7.7, hemoglobin 13.3, hematocrit 41.6 with a platelet count of 269,000. Pro time 19.7, INR 1.64, PTT 28.6. ABGs, pH 7.28, CO2 35, PO2 123, bicarb 17.6, at that time lactate was 5.2. Urinalysis, trace hematuria, negative for leukocytes, negative for bacteria, positive proteinuria, plasma serum ethylene glycol none detected. Patient had a brain MRI showing extensive chronic appearing changes as described with restricted diffusion or acute process, large areas encephalomalacia on both parietal occipital lobes. Negative for acute changes. This followed a head CT that indicated large bilateral hypodensities in the posterior cerebral lobes. They also noticed a significant sinusitis. Chest x-ray, possibility of mild pulmonary edema can be excluded with left lower atelectasis, bilateral pleural effusions. REVIEW OF SYSTEMS: X10 with pertinent positives listed above in the HPI if not listed. PHYSICAL EXAM: This is a 78-year-old white female resting quietly in bed. She is awake and alert. She is talking, she complains Joel catheter discomfort and hunger.HEENT: Normocephalic, atraumatic. Conjunctiva is pale pink, she has KAYLIE. Mucous membranes are dry. Neck: Supple. Trachea midline. There is no evidence of JVD in the upright position. Cardiovascular: She is regular rate and rhythm on the monitor. Lungs: Clear to auscultation anterior. Equal excursion on room air. Abdomen: Soft, large, round, nontender, positive bowel sounds. Genitourinary: Not inspected, minimal void with Joel catheter in place. Neurological: She is alert and oriented to person and to place, able to assist with exam. Integumentary: No rashes or lesions evident though she does have reddened areas to bilateral arches. No drainage noted on any of her lower extremity digits or upper extremity digits. ASSESSMENT AND PLAN: 1. Chronic kidney disease stage 5D. Patient is due for her routine dialysis treatment today. She has missed her Thursday treatment secondary to possible fluid volume overload. We will plan to dialyze her today. We will place her on a 2 K bath, she is to dialyze for 3-1/2 hours. We will attempt to pull her to her outpatient dry weight or 2 to 3 L. 2. Electrolytes and acid-base balance. Patient has a potassium that is elevated with correction on dialysis. 3. Anemia, this is actually in target. 4. Altered mental status with temporary blindness. Patient is awake and alert. She recognizes myself, she is talking appropriately. 5. Bladder pain secondary to Joel catheter placement. We will defer to primary care team. 6. Questionable sinusitis found on MRI and CT of the head. We will defer to the primary care team for possible start on antibiotics. Like to thank you for allowing us to follow with this patient. Dictated by KEO Nino for Jostin Anne MD Face to face encounter, data reviewed, discussed with Shae Byrnes on 05/09/19. I agree with the above assessment and plan of care. cc: KEO Nino MD [facility]
[2019-05-09 19:30] LABS: ACETONE SERUM NEGATIVE (NEGATIVE)
[2019-05-09 19:37] LABS: ACETAMINOPHEN < 1.2 ug/mL (10-30); SALICYLATES < 3.00 mg/dL (3-10)
[2019-05-09] MEDS: CARAFATE LIQUID PO SCH (20:47)
[2019-05-09] MEDS ORDERED: BENADRYL PO PRN (21:51)
[2019-05-10 05:21] LABS: BASO# 0.02 X1000 (0.0-0.2); BASO% 0.2 % (0.0-0.8); EOS# 0.16 X1000 (0.0-0.7); EOS% 1.9 % (0.0-10.0); HEMATOCRIT 38.9 % (37.0-47.0); HEMOGLOBIN 12.1 g/dL (12.0-16.0); IMM GRAN# 0.03 X1000 (0.0-0.04); IMM GRAN% 0.4 % (0.0-0.5); LYMPH# 1.63 X1000 (1.2-3.4); LYMPH% 19.5 % (20.5-51.1); MCH 29.8 PG (27-31); MCHC 31.1 g/dL (33-37); MCV 95.8 FL (81-99); MONO# 1.25 X1000 (0.11-0.59); MPV 10.2 FL (7.4-10.4); NEUT# 5.27 X1000 (1.4-6.5); PLT 146 X1000 (130-400); RBC 4.06 XMIL (4.2-5.4); RDW 19.9 % (11.5-14.5); WBC 8.36 X1000 (4.8-10.8)
[2019-05-10 05:57] LABS: ALBUMIN 3.7 g/dL (3.5-5.0); CALCIUM 9.4 mg/dL (8.8-10.2); CREATININE 4.3 mg/dL (0.5-0.9); PHOSPHORUS 4.7 mg/dL (2.7-4.5); POTASSIUM 4.6 mmol/L (3.5-5.1)
[2019-05-10] MEDS ORDERED: PROTONIX PO SCH (07:00)
[2019-05-10] MEDS: RENAGEL PO SCH ×3 (09:06→17:38)
[2019-05-10] MEDS: CARAFATE LIQUID PO SCH ×2 (09:06→21:45)
--- NOTE | 2019-05-10 11:30 | CARDIOLOGY CONSULTATION ---
DATE: 05/10/2019 REASON FOR CONSULTATION: Cardiology was consulted. The patient is admitted with acute sudden loss of vision, altered mental status, nonverbal. HISTORY OF PRESENT ILLNESS: This is a 78-year-old lady with end-stage renal disease on dialysis, systolic heart failure, had a coronary artery bypass grafting at [facility] on 11/26/2018. She has been having episodes of loss of vision; however, initially it was thought because of glaucoma and her pressures in the high 13s and 14s, which are within normal limits. She comes in at this time where she could not see at all, and this lasted for over an hour and her had to help her walk, this was also associated with weakness, and was nonverbal. The patient was brought to the emergency room and was admitted. The patient currently is able to see better, and her weakness also has improved. She denies any palpitations. As far as visual loss is concerned she has been having these intermittent episodes. Denies any headache. There is no edis syncopal episode. REVIEW OF SYSTEMS: Cardiovascular: There is no chest pain. There is no syncope. : System there is no dysuria or hematuria. Respiratory: There is no history of cough, expectoration, or hemoptysis. There is no history of fevers or chills. PAST MEDICAL HISTORY: 1. End-stage renal disease on dialysis. 2. Diabetes mellitus. 3. Hyperlipidemia. 4. Gastroesophageal reflux disease. 5. History of glaucoma. 6. History of prior CVA. 7. Cholecystectomy. 8. Coronary artery disease status post coronary artery bypass grafting, with WEBER to the left anterior descending artery, saphenous vein graft to aorta to obtuse marginal artery, saphenous vein graft from aorta to PDA. The patient had a transesophageal echocardiogram done intraoperatively, there was only mild mitral regurgitation. There was no valve placement. HOME MEDICATIONS: Include aspirin, Colace, Levemir insulin, Humalog insulin, magnesium, Protonix, Gas-X, daily vitamins. SOCIAL HISTORY: She lives with her . Denies tobacco or alcohol abuse. PHYSICAL EXAMINATION: Vital Signs: Blood pressure was 133/77. Cardiovascular: First and second heart sounds were heard. There was no S3 gallop. Respiratory: Normal air entry. There is no crepitations or rhonchi. Abdomen: Soft, nontender. There was no guarding or rigidity. Bowel sounds were heard. Central Nervous System: Alert, was moving all 4 extremities. Detailed central nervous system examination not performed. ASSESSMENT AND PLAN: 1. Ms Jacqueline Hinojosa is 78-year-old lady with history of heart failure, coronary artery disease status post coronary artery bypass grafting on 11/26/2018 at [facility], end-stage renal disease on dialysis, diabetes, comes with complaints of having had intermittent episodes of loss of vision and some shortness of breath. Chest x-ray was done, which revealed lower lobe atelectasis, bilateral pleural effusion. Her CT scan of the head was done, large bilateral hypodense areas in the posterior cerebral lobes. MRI also revealed extensive chronic appearance as described above in the parietal and occipital lobes. 2. The patient has not had atrial fibrillation. She has these intermittent episodes of visual loss, and her glaucoma pressures are within normal limits. PLAN: 1. We will get an echocardiogram to assess cardiac and valvular function. I have discussed with the patient. We will make sure there is no intracranial mass or thrombus to account for her symptomatology. 2. As far as her medications are concerned she is on insulin. Would recommend continuing her insulin and aspirin; however, she had LV dysfunction. Would recommend starting her on ADAM inhibitors, Cozaar, and also start her on Coreg. We will also check a lipid profile, and given her diabetes and end-stage renal disease she needs to be on a lipid-lowering agent as well. Thank you for the consult. We will follow hospital course. cc: Anam Eli MD
[2019-05-10] MEDS: PEPCID PO SCH (12:37)
--- NOTE | 2019-05-10 13:16 | PROVIDER PROGRESS NOTE ---
Progress Note Subjective: I feel good. Objective: vitals. Temp 97.8, pulse 83, respiration 16, blood pressure 133/77, 02 sat 98% on 3 L nasal cannula. General: chronically ill elderly white female lying in bed in no acute distress HEENT: normocephalic, atraumatic. Pupils equal and reactive. Mucous membranes moist, trachea midline. Skin: pale, friable, warm and dry. Neck: supple, positive JVD Cardiovascular: S1, S2, regular rate and rhythm. PMI enlarged Respiratory: lungs clear anteriorly with equal air excursion Abdomen: soft, nontender, nondistended. Bowel sounds present. : non inspected Extremities: no clubbing,cyanosis, or edema noted. Neurological: alert, oriented to person, place and time. Speech Labs: WBC 8.36, hemoglobin 12.1, hematocrit 38.9, platelet count 146, sodium 138, potassium 4.6, chloride 95, carbon dioxide 23, BUN 32, creatinine 4.3. Intake 100, output 1500. Impression: Chronic kidney disease stage 5D. Patient had a dialysis treatment yesterday with the 1.5L output. Her cognitive status is at baseline now. We will plan for hemodialysis tomorrow and hopefully discharge after. Blood pressure. In target. Anemia. In target. Electrolytes and ask base balance. And target. Volume status. Euvolemic. Medication review. No changes.
[2019-05-10] MEDS ORDERED: DIPRIVAN 1% ONE (13:22)
[2019-05-10] MEDS ORDERED: DIPRIVAN 1% 0 MG/0 ML BOTTLE ONE (13:29)
[2019-05-10] MEDS ORDERED: XYLOCAINE 2% VISCOUS ONE (13:40)
[2019-05-10] MEDS ORDERED: HURRICAINE SPRAY ONE (13:48)
[2019-05-10] MEDS ORDERED: FENTANYL ONE (13:51)
[2019-05-10] MEDS ORDERED: ANESTHESIA PB SET 88 IN 5742 ONE (13:55)
[2019-05-10] MEDS ORDERED: NS 250 ML ONE (13:55)
--- NOTE | 2019-05-10 14:41 | ECHO REPORT ---
ORDER DATE: 05/10/2019 INTERPRETING PHYSICIAN: Dr. Anam Eli. DESCRIPTION OF PROCEDURE: Cardiology was consulted. The patient was brought to the cardiac catheterization laboratory for a transesophageal echocardiogram to rule out intracardiac source of embolism. The patient was given etomidate. Please see detailed Anesthesia records. A transesophageal probe was easily passed into the esophagus. The patient's oropharynx was anesthetized prior to that using Cetacaine spray. Images were obtained. There were no complications. FINDINGS: 1. Left ventricular cavity size is normal with severely reduced systolic function. Estimated ejection fraction of 20%. Left atrium was enlarged. Left atrial appendage was normal. Pectinate muscles were noted. 2. Right atrium was normal. Eustachian valve was noted. 3. Aortic valve leaflets are trileaflet. 4. Mitral valve was normal. There is mitral annular calcification. 5. Tricuspid valve was normal. 6. Pulmonic valve was normal. 7. Doppler studies revealed there is no aortic stenosis or regurgitation. There is moderate tricuspid regurgitation. There is [id number] mitral regurgitation. 8. Saline contrast study was negative for patent foramen ovale. 9. Ascending aorta was normal. 10. Descending aorta had layered plaque. CONCLUSIONS: 1. Normal left ventricular cavity size with severely reduced systolic function. Estimated ejection fraction of 20%. There is global hypokinesis. 2. Saline contrast study was negative for patent foramen ovale. 3. There is no obvious intracardiac mass or thrombus seen. cc: MD Dominique Owusu PA
--- NOTE | 2019-05-10 15:05 | PROGRESS NOTE ---
DATE: 05/10/2019 SUBJECTIVE: This morning, Ms. Hinojosa refers to be doing fairly okay. The son and the were both at the bedside at the time of the encounter. Ms. Hinojosa refers that she is seeing a lot better now. She presented yesterday because of inability to see, of acute onset. MRI of the brain was unremarkable for any acute occipital infarcts. Ms. Hinojosa, however, also narrates that this is an ongoing issue whenever she takes Benadryl which has an anticholinergic effect and I think it is what really causes her blindness issues, quite apart from the fact that she does have an underlying ophthalmic disease. OBJECTIVE: Vital Signs: Blood pressure is 147/81, pulse of 89, respirations are 20, temperature is 98.6. General Examination: Ms. Hinojosa is a 78-year-old, female. She is in bed. She is not in any cardiopulmonary distress. HEENT: Mucosa is pink and moist. Anicteric. Acyanotic. Neck: Supple. Chest: Good air entry bilaterally. There are no crepitations. Cardiovascular: Regular rate and rhythm. No murmurs, no gallops. GI: Abdomen is soft, nontender. Bowel sounds present. Extremities: No pedal edema. [employer]: The patient is awake, alert. Follows basic commands. She seems to see well now. Laboratory Data: WBC is 8.36, hemoglobin is 12.1, platelet count 146,000. Chemistry is also reviewed and consistent with end-stage renal disease. ASSESSMENT: 1. End-stage renal disease, on hemodialysis Tuesdays, , and Saturdays. Patient has been evaluated by nephrology and was dialyzed yesterday. We will be waiting for further recommendations from them. 2. Acute onset of blurriness and blindness. MRI did not show any acute occipital infarct. Patient's blindness has resolved. She gives a very clear relationship with the use of Benadryl, which I think it is the side effects of this medication causing the visual impairment occasionally. I have advised that Ms. Hinojosa stop using Benadryl altogether. 3. Chronic urticaria. Ms. Hinojosa refers to have this chronic itching for the past multiple months and she has been advised to use Benadryl, which I think is causing her recurrent transitory eye blindness. I have advised that she stop using the Benadryl. I have put her on Abbie and I have also advised that she follows up with a slip cover cutter to rule out any other dermatological condition that could potentially cause this. Her labs yesterday did not show any eosinophilia. 4. Suspected dementia, most likely due to vascular. MRI shows large areas of old encephalomalacia in both parietal, occipital lobes, which would be concerning for previous cerebrovascular accidents. 5. Abdominal bloating. Ms. Hinojosa refers that she has been having bloating and early satiety for a very long time. She is diabetic. There is a concern that she could have diabetic gastroparesis. I reviewed her previous charting. It looks like she underwent esophagogastroduodenoscopy on 03/23/2019. All that was found was a Schatzki's ring at 38 cm from the incisors and also mild gastritis. We are going to do a gastric empty study tomorrow morning to rule out any delay in the gastric emptying. 6. 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 7. Secondary hyperparathyroidism. The patient has been started on cinacalcet. 8. History of coronary artery disease, status post coronary artery bypass graft. cc: Chito Ren MD
--- NOTE | 2019-05-10 17:03 | ECHO REPORT ---
ORDER DATE: 05/10/2019 INDICATION: Possible TIA. Evaluate for thrombus. M-MODE MEASUREMENTS: Left ventricle end diastole: 5.3. Left ventricle end systole: 4.8. Posterior wall: 1.0. Interventricular septum: 1.0. Left atrium: 4.2. Aortic diameter: 2.8. SUMMARY OF 2-DIMENSIONAL IMAGIN. Left ventricular function is significantly impaired. Global ejection fraction appears to be in the order of 25%. Impairment is global. There is some bouncing of the interventricular septum. The wall thickness is borderline increased. 2. The right ventricle is dilated. 3. The left atrium is also significantly enlarged. 4. There is dense calcification of the mitral annulus with moderate degree of mitral regurgitation. 5. Pulsed wave Doppler of mitral inflow shows a pseudo normal pattern with a tall E wave, short E wave, and a short deceleration time. 6. Tissue Doppler of septal and lateral mitral annulus is also markedly abnormal with velocity of 3 cm per second. The E/e' prime ratio is elevated. 7. The aortic valve shows sclerosis of the cusps without evidence of stenosis. 8. The cardiac output is very low. 9. The pulmonic valve shows a mild degree of regurgitation. 10.The tricuspid valve shows a moderate to moderately severe degree of regurgitation. Pulmonary systolic pressure is in the order of 49 mmHg to 54 mmHg. 11.There is no pericardial effusion, no mass, and no thrombus. 12.The right atrium appears to be moderately enlarged. The study is consistent with a dilated cardiomyopathy. Clinical correlation recommended. cc: MD Dominique Dick PA
[2019-05-10] MEDS ORDERED: LIPITOR PO SCH (21:00)
[2019-05-10] MEDS: COSOPT OPHTH SOLN BOTH EYES SCH (21:45)
[2019-05-10] MEDS: COREG PO SCH (21:45)
[2019-05-10] MEDS: ALLEGRA PO SCH (21:45)
[2019-05-11 05:50] LABS: BASO# 0.01 X1000 (0.0-0.2); BASO% 0.1 % (0.0-0.8); EOS# 0.16 X1000 (0.0-0.7); EOS% 2.3 % (0.0-10.0); HEMOGLOBIN 11.7 g/dL (12.0-16.0); IMM GRAN# 0.04 X1000 (0.0-0.04); IMM GRAN% 0.6 % (0.0-0.5); LYMPH# 1.43 X1000 (1.2-3.4); LYMPH% 20.7 % (20.5-51.1); MCH 29.7 PG (27-31); MCHC 30.8 g/dL (33-37); MCV 96.4 FL (81-99); MONO# 0.78 X1000 (0.11-0.59); MONO% 11.3 % (1.7-9.3); MPV 10.2 FL (7.4-10.4); NEUT# 4.48 X1000 (1.4-6.5); PLT 149 X1000 (130-400); RBC 3.94 XMIL (4.2-5.4); RDW 19.4 % (11.5-14.5)
[2019-05-11] MEDS ORDERED: COREG PO SCH (06:00)
[2019-05-11] MEDS: COZAAR PO SCH ×3 (06:10→09:53)
[2019-05-11] MEDS: PROTONIX PO SCH ×2 (06:10→06:19)
[2019-05-11 07:06] LABS: ALBUMIN 3.6 g/dL (3.5-5.0); CALCIUM 8.9 mg/dL (8.8-10.2); CREATININE 5.3 mg/dL (0.5-0.9); PHOSPHORUS 4.4 mg/dL (2.7-4.5); POTASSIUM 4.7 mmol/L (3.5-5.1)
[2019-05-11] MEDS ORDERED: LEVEMIR SUBQ SCH (09:00)
[2019-05-11] MEDS ORDERED: ASPIRIN PO SCH (09:00)
[2019-05-11] MEDS ORDERED: MAG-OX PO SCH (09:00)
[2019-05-11] MEDS ORDERED: NEPHRO-VITE PO SCH (09:00)
[2019-05-11] MEDS ORDERED: COLACE PO SCH (09:00)
--- NOTE | 2019-05-11 09:44 | Diag Imaging Result Doc PS360 ---
GASTRIC EMPTYING - 05/11/2019 INDICATION: early saciety. ? gastroparesis TECHNIQUE: 556 uCi of labeled solid food was ingested COMPARISON: None FINDINGS: The T1 half of gastric emptying is 156 minutes. This is moderately delayed. IMPRESSION: Delayed gastric emptying compatible with gastroparesis. Electronically signed by Eddie Mcfarland 05/11/2019 9:42 AM
[2019-05-11] MEDS: COSOPT OPHTH SOLN BOTH EYES SCH (09:52)
[2019-05-11] MEDS: PEPCID PO SCH (09:53)
[2019-05-11] MEDS: SENSIPAR PO SCH (09:53)
[2019-05-11] MEDS: COREG PO SCH (09:53)
[2019-05-11] MEDS: CARAFATE LIQUID PO SCH (09:57)
[2019-05-11] MEDS: ALLEGRA PO SCH (09:57)
[2019-05-11] MEDS: RENAGEL PO SCH ×2 (09:57→12:12)
--- NOTE | 2019-05-11 11:40 | PROVIDER PROGRESS NOTE ---
Progress Note Subjective: Pt in nuclear medicine. Denies nausea, vomiting, shortness of breath, or chest pain. Objective: vitals. Temp 97.4, pulse 76, respirations 20, blood pressure 108/51, 02 sat 94% on room air. General: chronically ill elderly white female lying in bed in no acute distress HEENT: normocephalic, atraumatic. Pupils equal and reactive. Mucous membranes moist, trachea midline. Skin: pale, friable, warm and dry. Neck: supple, positive JVD Cardiovascular: S1, S2, regular rate and rhythm. PMI enlarged Respiratory: lungs clear anteriorly with equal air excursion Abdomen: soft, nontender, nondistended. Bowel sounds present. : non inspected Extremities: no clubbing,cyanosis, or edema noted. Neurological: alert, oriented to person, place and time. Labs: WBC 6.90, hemoglobin 11.7, hematocrit 38.0, platelet count 149, sodium 137, potassium 4.7, chloride 94, carbon dioxide 25, BUN 42, creatinine 5.3, plasma lactate 1.7. Intake 300, output 0. AMANDA- EF 20%, moderate tricuspid regurgitation. Impression: Chronic kidney disease stage 5D. We will plan for hemodialysis today with discharge after. Blood pressure. In target. Anemia. Low, but in target. check hemoccult stool. Electrolytes and acid base balance. Hemodialysis will correct these. Volume status. Euvolemic. Medication review. No changes.
[2019-05-11 12:19] VITALS: BP 126/64
--- NOTE | 2019-05-12 12:26 | DISCHARGE SUMMARY ---
ADMISSION DATE: 05/09/2019 DISCHARGE DATE: 05/11/2019 DISPOSITION: Home. FOLLOWUP: 1. Dr. Xavi Aburto. 2. Dr. Jacinto. 3. Dr. Osborne. 4. Dr. Anne. CONSULTATIONS DURING THIS ADMISSION: 1. Nephrology was consulted. Patient was seen by Dr. Anne. 2. Cardiology was consulted. Patient was seen by Dr. Eli. INVASIVE PROCEDURES DONE DURING THIS ADMISSION: A AMANDA was done which showed a normal left atrial appendage. No clots. Ejection fraction was 20% on the transesophageal echo. A TTE showed an ejection fraction of about 25%. Impairment is global. IMAGING STUDIES OF SIGNIFICANCE: 1. A CT scan of the head showed large bilateral high hypodensities in the posterior cerebral lobes which are clearly subacute or chronic. There is a cortical-based posterior, likely representing cortical scarring. 2. An MRI of the brain showed extensive chronic appearing changes. No restrictive diffusion or acute process. 3. Gastric emptying studies showed delayed gastric emptying compatible with gastroparesis. ADMISSION DIAGNOSES: 1. Chronic kidney disease. 2. Sinusitis. 3. Altered mental status. 4. Itching. 5. Diabetes mellitus. 6. Systolic heart failure. DIAGNOSES AT THE TIME OF DISCHARGE: 1. End-stage renal disease, on hemodialysis Tuesdays, and Saturdays. 2. Acute onset of blurriness and transient blindness, questionable for Benadryl anticholinergic side effects. The patient has been counseled. 3. Chronic urticaria of undetermined etiology. 4. Suspected vascular dementia. 5. 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 6. 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 7. Secondary hyperparathyroidism. 8. History of coronary artery disease status post coronary artery bypass graft. 9. Severe dilated ischemic cardiomyopathy with ejection fraction of 20 to 25 percent. The patient will follow up with Dr. Jacinto. DISCHARGE MEDICATIONS: 1. Insulin Levemir 15 units subcutaneous daily. 2. Aspirin 81 mg p.o. daily. 3. Carafate 1 g p.o. q.12. 4. Carvedilol 12.5 b.i.d. 5. Losartan 25 mg p.o. daily. 6. Famotidine 20 mg p.o. daily. 7. Sevelamer 800 mg 3 times per day. 8. Sensipar 30 mg p.o. Thursday, Thursday, Thursday. 9. Atorvastatin 20 mg p.o. at bedtime. 10. Abbie 60 mg p.o. q.12. 11. Pantoprazole 40 mg p.o. daily. 12. Metoclopramide 5 mg p.o. 3 times per day. 13. Lactulose 30 mg b.i.d. PRESENTING COMPLAINT: Altered mental status, sudden loss of vision and becoming nonverbal. HISTORY OF PRESENTING COMPLAINT: Ms. Hinojosa is a 78-year-old elderly female who presented to the emergency department because of acute onset of visual loss. The patient refers that she has been having this type of recurrent visual blurriness and visual loss, especially after taking Benadryl. It takes quite a few hours for it to completely resolve. She also complains of chronic itching of the skin and signs of early satiety. Upon presenting Ms. Obandos was evaluated for acute stroke protocol and a CT scan of the head without contrast was somehow pathological, so an MRI of the brain was done which did not show any acute restricted diffusion pathology. She did have some chronic ischemic changes in the brain however. Ms. Hinojosa' visual changes got improved on the same day of admission. Upon reviewing her medication list, it became apparent that this is somehow associated any time she takes her Benadryl. I did advise her to stop taking that. It appears that Ms. Hinojosa has been on the Benadryl because of urticaria and skin itching, which have not been thoroughly investigated. I have advised her to follow up with a data integration developer and that possibly a skin biopsy will need to be done at a later date. Of note, her CBC did not show any significant eosinophilia. Ms. Hinojosa had an echocardiogram which shows an ejection fraction of 25%, so a AMANDA was done which revealed an ejection fraction of 20. There were no intracardiac clots. The patient was seen by Dr. Eli. Ms. Hinojosa also did refer about early satiety and abdominal bloating. She has been diabetic for a very long time. We did suspect that she has diabetic autonomic neuropathy, so we did gastric emptying studies which came back positive for gastroparesis. I did explain to her that for now, the only medication that we can try is Reglan. However, that also has its side effects including tardive dyskinesia. I went over the medication side effects with her and with the and the daughter, who took notes of everything that we discussed at the bedside and they were okay to try the Reglan. This morning Ms. Hinojosa refers to be doing fine. She did not have any more visual issues. Her vitals are stable. I have discussed her case with Dr. Anne, who is also okay with her being discharged and to follow up with her subspecialties on outpatient basis. All the discharge instructions have been discussed with Ms. Loaiza, the and the daughter at the bedside. They all voiced understanding. TIME SPENT: Time spent for discharge is 40 minutes. cc: MD Xavi Prakash MD William D. Denney, MD Reginald D. Gladish, MD Khurshid Yousuf, MD
== END 2019-05-11 12:39 | disposition home or self-care (01) | DRG 123 ==
LOC: SUPCPDRO → ED 09:20 → 1N 14:03
PROVIDERS: ATTEND Internal Medicine